=== PATIENT | male | born 1955 | race Caucasian/White ===

== ENCOUNTER 2019-10-01 03:28 | Inpatient (IN) | payer MEDICARE ==
[~2019-10-01] VITALS: Ht 185.4 cm; Wt 186.4 kg
[2019-10-01] MEDS ORDERED: POTASSIUM CHLO20 ME1 PO (05:49)
[2019-10-01] MEDS ORDERED: TORSEMIDE20 MG PO (05:50)
[2019-10-01] MEDS ORDERED: TRESIBA FL200 UNIT/1 (05:51)
[2019-10-01] MEDS ORDERED: NOVOLOG100 UNIT/2 (05:52)
[2019-10-01] MEDS ORDERED: FELODIPINE ER10 MG PO (05:53)
[2019-10-01] MEDS ORDERED: LOSARTAN POTASS25 MG PO (05:54)
[2019-10-01] MEDS ORDERED: JANUMET 50-1,01 EACH PO (05:54)
[2019-10-01] MEDS ORDERED: ASPIRIN325 MG PO (05:55)
--- NOTE | 2019-10-01 06:21 | NUR ---
REPORT RECEIVED FROM SN BERNARDO IN ED.
--- NOTE | 2019-10-01 07:04 | NUR ---
pt ARRIVES TO MS FLOOR VIA STRETCHER. HOVER MAT TO HOSPITAL BED WITH FIVE PERSON ASSIST. ORIENTATION TO ROOM PROVIDED. IVF INFUSING WNL ORDERED. CPOX IN PLACE. VSS. SPO2 WNL ON RA. CALL LIGHT IN REACH. pt VERBALIZES UNDERSTANDING TO USE CALL LIGHT BEFORE GETTING OUT OF BED.
--- NOTE | 2019-10-01 08:30 | NUR ---
PT IS ALERT, ORIENTED, SBA TO SIT UP ON EDGE OF BED TO VOID IN URINAL, NEEDS CONSTANT CUES BUT FOLLOWS INSTRUCTIONS WELL. L ARM/HAND WEAKNESS, ABLE TO GRASP WITH HAND, BEDSIDE SWALLOW SCREEN COMPLETED AND APPEARS TO HAVE ADEQUATE SWALLOW. DENIES ANY DISCOMFORT, DR HANKINS IN TO SEE PT.
--- NOTE | 2019-10-01 10:53 | NUR ---
PT STOOD TO TRANSFER TO LARGER CHAIR BORROWED FROM [facility].
--- NOTE | 2019-10-01 11:58 | NUR ---
WEAKNESS MUCH IMPROVED TO L ARM AND LEG, AMBULATED LOOP AROUND NURSES STATION WITH FWW AND PHYSICAL THERAPIST.
--- NOTE | 2019-10-01 13:00 | NUR ---
Spoke with Kai herrera suzanna. He states he lives in [place] and is independent. Has a friend, Souleymane, who lives on his property and assists him if needed. He states he is not his cg. Also has a friend Jada who assists him. He feels he does well at home, his concern is he is having more difficulty getting in and out of his clawfoot bath tube. Discussed need to remodel his bathroom and states he has been planning this. Denies DME, but does state he uses a cane. 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 States he is ok financially and does not use food pantry or [employer]. He states Dr. Leon spoke with him about possible [facility] admission for rehab if needed. He feels his deficits have improved greatly at this point. He will discuss further with Dr. Leon.
--- NOTE | 2019-10-01 13:59 | NUR ---
PT IS PLEASED WITH ROOM CHANGE TO 116, NEW RECLINER ALSO FOR COMFORT, PT IS ALERT, DENIES ANY NEEDS OR CONCERNS, NO GILL, USING ALL EXTREMITIES, MILD WEAKNESS IN L HAND/ARM. USING CALL LIGHT APPROP.
--- NOTE | 2019-10-01 16:10 | NUR ---
SBA INTO SHOWER, TOLERATED WELL, SBA USING FWW TO AMBULATE. NIH SCALE-1. MINIMAL WEAKNESS IN L HAND/ARM. IN GOOD SPIRITS, DENIES ANY CONCERNS OR NEEDS.
--- NOTE | 2019-10-01 18:08 | NUR ---
ATE 100% OF DINNER, ONE PERSON SBA INTO BATHROOM, VOIDING WELL, DENIES ANY PAIN, IN GOOD SPIRITS.
--- NOTE | 2019-10-01 19:15 | NUR ---
SHIFT REPORT RECEIVED FROM DAYSHIFT WILVER MACKAY AT BEDSIDE. PT AWAKE AND GETTING INTO BED WITH HELP FROM DAYSHIFT CALENDER LET OFF OPERATOR. PT IN GOOD SPIRITS AND DENIES NEEDS, CALL LIGHT IN REACH.
--- NOTE | 2019-10-01 22:03 | NUR ---
HELPED PT TO LAY DOWN IN HIS BED. MATTRESS INFLATED,SOCKS OFF AND TELE PUT ON. FRESH ICE WATER GIVEN. BEDSIDE TABLE AND CALL LIGHT IN REACH. PT NEEDS NOTHING MORE AT THIS TIME.
--- NOTE | 2019-10-01 22:59 | NUR ---
PATIENT RESTING IN BED, EYES CLOSED. AWAKES FOR GLUCOSE CHECK. PATIENT COMPLAINS OF BEING UNCOMFORTABLE ON BED, READJUSTED NEEDED. CALL LIGHT IN REACH. RN NOTIFIED OF BLOOD GLUCOSE. NO FUTHER NEEDS AT THIS TIME.
--- NOTE | 2019-10-01 23:00 | NUR ---
ASSESSMENT COMPLETE, SCHEDULED ACCUCHECK COMPLETE, RESULT 219. SCHEDULED LANTUS AND INSULIN SS ADMINISTERED (SEE EMAR). PT RESTING IN BED, ABLE TO FOLLOW COMMANDS. PUPILS ROUND AND REACTIVE TO LIGHT. A/OX4, VSS. NEURO ASSESSMENT COMPLETE (SEE INTERVENTION FOR DETAILS). PT COMPLAINT WITH CARE, DENIES FURTHER NEEDS. CALL LIGHT IN REACH.
--- NOTE | 2019-10-01 23:10 | EKG ---
[facility] [address] [place] [address] Signed Normal sinus rhythm Normal ECG No previous ECGs available Confirmed by KARLEY MCBRIDE MD ([id number]) on 10/01/2019 11:10:04 PM Electronically Signed By: KARLEY MCBRIDE MD 10/01/19 2310 PATIENT NAME: FANNIE COMBS Electrocardiogram DATE OF : 51 PHYSICIAN: KARLEY MCBRIDE MD REPORT #: [id number] REPORT IS CONFIDENTIAL AND NOT TO BE RELEASED WITHOUT AUTHORIZATION
--- NOTE | 2019-10-01 23:33 | NUR ---
PATIENT ASSISTED TO AMBULATE TO BEDSIDE RECLINER FOR COMFORT. PATIENT TOLERATED WELL. PATIENT BELONGINGS AND CALL LIGHT IN REACH, NO FURTHER NEEDS AT THIS TIME.
--- NOTE | 2019-10-02 00:30 | NUR ---
PT AWAKE AND RESTING IN CHAIR APPEARS COMFORTABLE. TELE#[address], SINUS RHYTHM. HR WNL. DENIES NEEDS, CALL LIGHT IN REACH.
--- NOTE | 2019-10-02 01:15 | NUR ---
PT CALLED, WAS UP IN RECLINER CHAIR, REQUESTED TO GO TO BED. SBA, WITH FWW PT TO BED, ABLE WITH MIMIMAL SUPPORT, GET LEGS INTO BED AND ADJUSTED HIS POSITION INDEPENDENTLY. CALL LIGHT WITHIN REACH.
--- NOTE | 2019-10-02 02:06 | NUR ---
PT RESTING QUIETLY IN BED WITH EYES CLOSED. NO DISTRESS OR PAIN NOTED, CALL LIGHT IN REACH.
--- NOTE | 2019-10-02 03:05 | NUR ---
VITALS AND I&OS DONE AND CHARTED. BEDSIDE TABLE AND CALL LIGHT IN REACH. PT NEEDS NOTHING AT THIS TIME.
--- NOTE | 2019-10-02 03:30 | NUR ---
ASSESSMENT COMPLETE, NO NEW CHANGES OR CONCERNS. PT A/OX4, PUPILS ROUND AND REACTIVE TO LIGHT. NIH STROKE SCALE SCORE OF 1, NO CHANGE FROM PREVIOUS ASSESSMENT. PT FOLLOWS COMANDS AND IS INTERACTIVE WITH STAFF. CLEAR SPEECH, SLIGHT LEFT DROOP REMAINS, BASELINE PER REPORT AND PT D/T HX BELLS PALSY. PT UP TO VOID 1PA WITH FWW, CURRENTLY IN BATHROOM. CALL LIGHT IN REACH AND INSTRUCTED TO CALL WHEN READY. PT VERBALIZED UNDERSTANDING.
--- NOTE | 2019-10-02 04:01 | NUR ---
HELPED PT FROM THE BATHROOM BACK INTO HIS CHAIR WITH HIS FWW. FRESH ICE WATER GIVEN PER PT REQUEST. BEDSIDE TABLE AND CALL LIGHT IN REACH. PT NEEDS NOTHING MORE AT THIS TIME.
--- NOTE | 2019-10-02 04:57 | NUR ---
PT HAD AN UNEVENTFUL NIGHT, SLEPT OFF AND ON. BIGGEST COMPLAINT WAS INTERMITTENT RESTLESS LEGS. VSS, TELE#[address] Q4H NEURO CHECKS, NIH STROKE SCALE OF 1 R/T FACIAL DROOP. 1PA WITH FWW, CALL APPROPERIATELY. ADA DIET, TOLERATING WELL, NO NAUSEA REPORTED. INSULIN SS AND SCHEDULED LANTUS.
--- NOTE | 2019-10-02 05:35 | NUR ---
PATIENT RESTING IN BEDSIDE RECLINER, EYES CLOSED, LIGHTS OFF. PATIENT AWAKES BRIEFLY FOR VITALS BUT CONTINUES TO REST. CALL LIGHT IN REACH. NO FURTHER NEEDS AT THIS TIME.
--- NOTE | 2019-10-02 06:30 | NUR ---
NIH STROKE SCALE COMPLETE, NO NEW CHANGES. SCORE UNCHANGED. CALL LIGHT IN REACH.
--- NOTE | 2019-10-02 06:44 | NUR ---
PT SBA WITH FWW BACK TO BED, MAX INFLATE IN PLACE. BREAKFAST ORDER CALLED TO KITCHEN. HX DIABETES, PT ON REGULAR DIET. DISCUSSED WITH SPINAL SURGEON, PT PLACED ON 60G CARB DIET. NO FURTHER NEEDS.
--- NOTE | 2019-10-02 08:04 | NUR ---
DID PATIENT'S BLOOD SUGAR CHECK. ALSO GOT HIM UP TO WEIGH HIM AND AFTER THAT HE WENT INTO THE BATHROOM WASHED HIS FACE AND BRUSH HIS TEETH. NOW HE IS SITTING UP IN HIS CHAIR EATING HIS BREAKFAST. CHANGED LINENS.
--- NOTE | 2019-10-02 08:30 | NUR ---
PT SBA INTO BATHROOM AND THAN TO RECLINER FOR BREAKFAST, DENIES ANY CONCERNS OR NEEDS, IN GOOD SPIRITS.
--- NOTE | 2019-10-02 10:00 | NUR ---
NIH SCORE-0, WALKING IN HALLWAY WITH PT, MOTIVATED AND IN GOOD SPIRITS.
--- NOTE | 2019-10-02 11:45 | NUR ---
Spoke with Kai. He states he has weakness in his left side. Thinking he will stay for rehab. He wants to discuss with Dr. Leon.
[2019-10-02] MEDS ORDERED: FISH OIL 1,0001 EAC2 PO (12:45)
[2019-10-02] MEDS ORDERED: VITAMIN B-121000 MC2 PO (12:45)
[2019-10-02] MEDS ORDERED: MAGNESIUM200 MG PO (12:45)
[2019-10-02] MEDS ORDERED: VITAMIN D375 MCG PO (12:46)
--- NOTE | 2019-10-02 12:51 | NUR ---
MED REC COMPLETED USING REFILL HISTORY AND PATIENT INTERVIEW.
--- NOTE | 2019-10-02 16:19 | NUR ---
PT IS SITTING UP IN RECLINER, WATCHING TV PROGRAM, DENIES ANY NEEDS, CALL LIGHT IN EASY REACH. LOOKING FORWARD TO DINNER.
--- NOTE | 2019-10-02 19:30 | NUR ---
SHIFT REPORT RECEIVED FROM DAYSHIFT WILVER MACKAY AT BEDSIDE. PT AWAKE AND RESTING IN BED, NO NEEDS VERBALIZED. COMPLIANT WITH CARE. CALL LIGHT IN REACH.
--- NOTE | 2019-10-02 19:33 | NUR ---
HELPED PT TO THE BATHROOM WITH HIS FWW. HE WILL PULL THE STRING WHEN HE IS DONE.
--- NOTE | 2019-10-02 19:57 | NUR ---
HELPED PT BACK TO BED FROM THE BATHROOM WITH HIS FWW. FRESH ICE WATER GIVEN AND SOME FLOSS PER HIS REQUEST. BEDSIDE TABLE AND CALL LIGHT IN REACH.
--- NOTE | 2019-10-02 21:30 | NUR ---
ASSESSMENT COMPLETE, VSS. PT AWAKE AND RESTING IN BED. SCHEDULED INSULIN SS AND SCHEDULED LANTUS ADMINISTERED (SEE EMAR). NIH STROKE SCALE ASSESSMENT UNREMARKABLE, SCORE OF 0. TELE#[address], HR WNL AND SINUS RHYTHM. PRN TYLENOL GIVEN FOR RESTLESS LEGS/GENERALIZED DISCOMFORT. NO FURTHER NEEDS, CALL LIGHT IN REACH.
--- NOTE | 2019-10-02 23:33 | NUR ---
HELPED PT GET TO THE CHAIR FROM THE BED WITH HIS FWW. HE SAID HE WAS VERY UNCOMFORTABLE. PER PT REQUEST I GAVE HIM A CUP OF COFFEE. BEDSIDE TABLE AND CALL LIGHT IN REACH.
--- NOTE | 2019-10-03 01:33 | NUR ---
PT RESTING QUIETLY IN BED WITH EYES CLOSED. REPIRATIONS EVEN AND UNLABORED. NO DISTRESS NOTED, CALL LIGHT IN REACH.
--- NOTE | 2019-10-03 03:30 | NUR ---
PT RESTING IN CHAIR, EYES CLOSED. RESPIRATIONS EVEN AND UNLABORED. NO DISTRESS NOTED, CALL LIGHT IN REACH.
--- NOTE | 2019-10-03 05:36 | NUR ---
ASSESSMENT COMPLETE, NO NEW CHANGES OR CONCERNS. PT AWAKE AND RESTING IN CHAIR. A/OX4, SPEECH CLEAR. LEFT FACIAL DROOP REMAINS NOTED, HX BELLS PALSY. PUPILS ROUND AND REACTIVE TO LIGHT. EQUAL STRENGTH IN BUE. TELE#[address], SINUS RHYTHM. PT DENIES FURTHER NEEDS, CALL LIGHT IN REACH. AUGUST IN ROOM TO COLLECT VS.
--- NOTE | 2019-10-03 05:42 | NUR ---
VITALS AND I&OS DONE AND CHARTED. WEIGHT DONE WELL. BEDSIDE TABLE AND CALL LIGHT IN REACH. GARBAGES EMPTIED. PT NEEDS NOTHING MORE AT THIS TIME.
--- NOTE | 2019-10-03 07:05 | NUR ---
RECEIVED REPORT FROM JESÚS PETTIT. PT AWAKE AND SITTING UP IN CHAIR AT THIS TIME. PT HAS CALL LIGHT WITHIN REACH AND NO COMPLAINTS
--- NOTE | 2019-10-03 08:30 | NUR ---
IN PTS ROOM GIVING MEDS. PT SITTING UP IN CHAIR WITH NO COMPLAINTS AT THIS TIME. CALL LIGHT WITHIN REACH
--- NOTE | 2019-10-03 09:45 | NUR ---
IN PTS ROOM, PT DONE WITH SHOWER AND BACK TO CHAIR. PT HAS NO CONCERNS OR NEEDS AT THIS TIME. CALL LIGHT WITHIN REACH
--- NOTE | 2019-10-03 12:00 | NUR ---
pt sitting in chair call light within reach, pt requests more water, provided pt with fresh water. pt denies any other concerns at this time
--- NOTE | 2019-10-03 13:15 | NUR ---
SPOKE WITH PATIENT IN ROOM. HE STATES HE STILL FEELS WEAK, BUT GETTING BETTER. HE DOES NOT LIKE SLEEPING IN HOSPITAL BED. STATES HE SLEEPS BETTER IN CHAIR. WE DISCUSSED PLAN FOR DISCHARGE. WE DISCUSSED THAT THERAPY FEELS HE COULD USE ANOTHER WEEK OR SO TO BE SAFER IN GOING HOME, ESPECIALLY SINCE HE LIVES ALONE. WE DISCUSSED OPTION OF SNF OR TRANSITIONAL CARE HERE. HE WOULD LIKE TO AVOID GOING ELSEWHERE AND WOULD LIKE TO STAY HERE IF POSSIBLE. DISCUSSED THAT WE MIGHT BE ABLE TO DO THIS, BUT THAT IF OUR HOSPITAL WERE TO BECOME FULL WITH THE PANDEMIC NEEDS WE WOULD HAVE TO DISCHARGE HIM HOME OR TO A SNF. HE UNDERSTANDS THIS. TOLD HIM DR MCBRIDE WILL DISCUSS THIS WITH HIM WHEN SHE DOES ROUNDS. WE DISCUSSED MEDICARE COVERAGE OF SNF BENEFITS. HE STATES UNDERSTANDING. WE DISCUSSED THAT THERAPY IS CONCERNED THAT HE DOES NOT HAVE A SHOWER AT HOME AND WHAT HIS PLAN ARE FOR THIS SINCE GETTING IN AND OUT OF A [place]W TUB WILL BE DANGEROUS AT THIS TIME. HE STATES HE WAS HAVING ISSUES WITH IT BEFORE, HE PLANS TO REMODEL SOMEDAY, BUT IT IS COSTLY. HE STATES HE CAN SHOWER AT A FAMILY OR FRIENDS HOME ON [address]. I EXPLAINED WE CANNOT KEEP HIM HERE AT DISCHARGE IN REGARDS TO THIS ISSUE IT IS ONGOING. HE UNDERSTANDS. QUESTIONS ANSWERED AT THIS TIME. CM WILL CONTINUE TO FOLLOW.
--- NOTE | 2019-10-03 14:54 | NUR ---
TRANSITIONAL CARE BROCHURE GIVEN.
--- NOTE | 2019-10-03 14:54 | NUR ---
IN PTS ROOM AT THIS TIME. PT LAYING IN BED, CALL LIGHT WITHIN REACH. PT STATES THAT HE "FEELS ELECTRCITY GOING THROUGH MY LEGS" ASKED PT IF HE WOULD LIKE SOME TYLENOL FOR HIS LEGS FEELING UNCOMFORTABLE, PT STATED THAT SOUNDED GOOD. PT HAS NO OTHER CONCERNS AT THIS TIME
--- NOTE | 2019-10-03 15:15 | NUR ---
IN PTS ROOM FOR CHECK IN. PT STATES HE IS DOING WELL BUT WOULD LIKE SOME LOTION PUT ON HIS FEET DUE TO THEM BEING DRY. PLACED LOTION ON BILATERAL LEGS AND FEET
--- NOTE | 2019-10-03 17:15 | NUR ---
IN PTS ROOM GIVING MEDS. PT PROVIDED DINNER AND STATES NO OTHER CONCERNS AT THIS TIME
--- NOTE | 2019-10-03 18:31 | NUR ---
PT SITTING IN CHAIR TALKING ON PHONE, PT GAVE THUMBS UP- THIS RN IS TAKING IT THAT THE PT IS DOING WELL AND DOESN'T NEED ANYTHING
--- NOTE | 2019-10-03 19:00 | NUR ---
BEDSIDE REPORT RECEIVED FROM OFFGOING RN. PT DENIES NEEDS AT THIS TIME. CALL LIGHT IN REACH.
--- NOTE | 2019-10-03 22:30 | NUR ---
PT ASSESSMENT COMPLETE. PT RESTING IN BED, WOULD LIKE TO GET UP TO USE THE BATHROOM AND REST IN THE CHAIR A WHILE. PT OOB WITH MINIMAL ASSISTANCE, WALKS TO BATHROOM AND BACK TO CHAIR INDEPENDENTLY. PT DENIES PAIN, NAUSEA, OR SOB. 2+PITTING EDEMA NOTED TO LLE, GENERALIZED EDEMA TO RLE. ELEVATED ON PILLOW. IV SITES X2 FLUSHED, WNL, SL. PT DENIES FURTHER NEEDS AT THIS TIME. CALL LIGHT IN REACH.
--- NOTE | 2019-10-04 00:20 | NUR ---
PT RESTING IN CHAIR WITH EYES CLOSED, SNORING AUDIBLY FROM DOORWAY. PT DOES NOT WAKE WHILE SEPTIC TECHNICIAN IN DOORWAY. CALL LIGHT IN REACH.
--- NOTE | 2019-10-04 02:30 | NUR ---
PT RESTING IN BED. SNORING AUDIBLY FROM DOORWAY, DOES NOT WAKE WHILE ROLLER OPERATOR AT DOORWAY. CALL LIGHT IN REACH.
--- NOTE | 2019-10-04 06:05 | NUR ---
PATIENT RESTING IN BED, CALL LIGHT IN REACH, EYES CLOSED. NO FURTHER NEEDS AT THIS TIME. RN NOTIFIED OF BLOOD PRESSURE.
--- NOTE | 2019-10-04 06:10 | NUR ---
PT ASSESSMENT COMPLETE. PT RESTING IN BED SNORING AUDIBLY. DOES NOT WAKE DURING ASSESSMENT. ASSESSMENT UNCHANGED FROM PREVIOUS. CALL LIGHT IN REACH.
--- NOTE | 2019-10-04 07:10 | NUR ---
RECEIVED REPORT FROM KAREN PTETIT. PT SITTING UP IN CHAIR AND HAS NO IMMEDIATE NEEDS AT THIS TIME
--- NOTE | 2019-10-04 08:30 | NUR ---
IN PTS ROOM PASSING MORNING MEDS. PT HAS NO NEEDS AT THIS TIME. CALL LIGHT WITHIN REACH AND IS SITTING IN BED
--- NOTE | 2019-10-04 11:30 | NUR ---
pt working with physical therapy at this time. pt in hallway ambulating well.
--- NOTE | 2019-10-04 11:58 | NUR ---
in pts room to do accu check. pt in chair and appears that he was about to fall asleep. pt states he is doing well and has no complaints at this time
--- NOTE | 2019-10-04 14:39 | NUR ---
IN PTS ROOM GIVING MEDS. PT SITTING IN CHAIR AND HAS NO COMPLAINTS AT THIS TIME.
== END 2019-10-04 15:07 | disposition swing bed (61) | DRG 65 ==
LOC: ED 03:28 → MS 03:30
PROVIDERS: ADMIT Internal Medicine
DX: I63.9 Cerebral infarction, unspecified (principal); G81.94 Hemiplegia, unspecified affecting left nondominant side; Z68.43 Body mass index [BMI] 50.0-59.9, adult; R29.810 Facial weakness; R13.10 Dysphagia, unspecified; E11.9 Type 2 diabetes mellitus without complications; I10 Essential (primary) hypertension; G47.30 Sleep apnea, unspecified; K59.00 Constipation, unspecified; E66.9 Obesity, unspecified; I89.0 Lymphedema, not elsewhere classified; M54.9 Dorsalgia, unspecified; G89.29 Other chronic pain; Z82.49 Family history of ischemic heart disease and other diseases of the circulatory system; Z87.891 Personal history of nicotine dependence; Z79.82 Long term (current) use of aspirin; Z79.4 Long term (current) use of insulin; Z79.899 Other long term (current) drug therapy
CPT/HCPCS: 36415; 70450; 70496; 70498; 71045; 80048; 80053; 80061; 84484; 85025; 85610; 85730; 92610; 93005; 93010; 93306; 97110; 97116; 97162; 97165; 97535; 99285-25; J1650; J1815; J3480; Q9967; U0002

== ENCOUNTER 2019-10-04 15:08 | Inpatient (IN) | payer MEDICARE ==
[~2019-10-04] VITALS: Ht 185.4 cm; Wt 183.2 kg
[~2019-10-04 15:08] MED LIST: ASPIRIN325 MG PO; FELODIPINE ER10 MG PO; FISH OIL 1,0001 EAC2 PO; JANUMET 50-1,01 EACH PO; LOSARTAN POTASS25 MG PO; MAGNESIUM200 MG PO; NOVOLOG100 UNIT/2; POTASSIUM CHLO20 ME1 PO; TORSEMIDE20 MG PO; TRESIBA FL200 UNIT/1; VITAMIN B-121000 MC2 PO; VITAMIN D375 MCG PO
[2019-10-06] MEDS ORDERED: APPLE CIDER VI1 EAC1 PO (12:22)
[2019-10-07] MEDS ORDERED: CLOPIDOGREL75 MG PO (12:29)
[2019-10-07] MEDS ORDERED: ROPINIROLE HCL0.5 MG PO (12:31)
[2019-10-07] MEDS ORDERED: ZETIA10 MG PO (12:31)
== END 2019-10-08 10:25 | disposition home health service (06) | DRG 57 ==
LOC: MS 15:08
PROVIDERS: ADMIT Internal Medicine
DX: I69.354 Hemiplegia and hemiparesis following cerebral infarction affecting left non-dominant side (principal); G51.0 Bell's palsy; E11.9 Type 2 diabetes mellitus without complications; I10 Essential (primary) hypertension; G25.81 Restless legs syndrome; I25.10 Atherosclerotic heart disease of native coronary artery without angina pectoris; E78.5 Hyperlipidemia, unspecified; I69.391 Dysphagia following cerebral infarction; R13.10 Dysphagia, unspecified; Z79.4 Long term (current) use of insulin; Z79.899 Other long term (current) drug therapy
CPT/HCPCS: 97110; 97116; 97140; 97162; 97165; J1650; J1815

== ENCOUNTER 2023-07-04 21:23 | Inpatient (IN) | payer OTHER, MEDICARE ==
[~2023-07-04] VITALS: Ht 185.4 cm; Wt 221.5 kg
[~2023-07-04 21:23] MED LIST changes: +APPLE CIDER VI1 EAC1 PO; +CLOPIDOGREL75 MG PO; -NOVOLOG100 UNIT/2; +NOVOLOG100 UNIT/2 SUB-Q; +ROPINIROLE HCL0.5 MG PO; -TRESIBA FL200 UNIT/1; +TRESIBA FL200 UNIT/1 SUB-Q; +ZETIA10 MG PO
[2023-07-04 21:47] LABS: BASOPHILS 0.5 % (0-2); EOSINOPHILS 0.9 % (0-6); HEMATOCRIT 45.4 % (35.0-50.0); LYMPHOCYTES 11.5 % (24-44); MCH 26.9 (27-36); MCHC 33.1 g/dl (30-36); MCV 81.3 fl (81-99); NEUTROPHILS 81.1 % (39-80); PLATELET COUNT 266 K/uL (140-440); RBC 5.58 M/ul (4.3-5.7); RDW 17.5 (10.5-15.0)
[2023-07-04 22:01] LABS: ALBUMIN/GLOBULIN RATIO 0.67 (1.1-2.4); ANION GAP 11.6 (7-21); BILIRUBIN, TOTAL 0.4 ng/dL (0.2-1.0); BUN/CREATININE RATIO 12.24 (6.0-28.6); CALCIUM 8.9 mg/dL (8.5-10.1); CREATININE, SERUM 0.98 mg/dL (0.70-1.30); MAGNESIUM 1.8 mg/dL (1.8-2.4); POTASSIUM 3.6 mmol/L (3.5-5.1); PROTEIN, TOTAL 7.5 g/dL (6.4-8.2)
[2023-07-04 22:23] LABS: BILIRUBIN, URINE NEGATIVE (negative); BLOOD/HGB, URINE NEGATIVE (Negative); KETONE, URINE NEGATIVE (Negative); LEUK ESTERASE, URINE NEGATIVE (negative); NITRITE, URINE NEGATIVE (negative)
[2023-07-04] MEDS ORDERED: MORPHINE SULFATE 4 MG/ML VIAL IV ONE (23:15)
[2023-07-05] MEDS ORDERED: HYDROmorphone HCL 1 MG/ML SYR IV PRN ×2 (02:30→09:15)
[2023-07-05] MEDS ORDERED: OXYCODONE/APAP 5/325 TAB PO PRN (06:30)
[2023-07-05] MEDS ORDERED: ENOXAPARIN SODIUM 40 MG/0.4 ML SYR SUB-Q SCH (09:10)
[2023-07-05] MEDS ORDERED: HYDROCODONE/APAP 10/325 1 TAB PO PRN (09:15)
[2023-07-05] MEDS ORDERED: ACETAMINOPHEN 325 MG TAB PO PRN (09:15)
[2023-07-05] MEDS ORDERED: bisacodyL 10 MG SUPP PR PRN (09:15)
[2023-07-05] MEDS ORDERED: MAGNESIUM HYDROXIDE 30 ML UDC PO PRN (09:15)
[2023-07-05 09:59] VITALS: BP 155/82
--- NOTE | 2023-07-05 09:59 | NUR ---
PT ARRIVES TO ROOM ACCOMPANIED BY WILVER THAKUR. BEDSIDE REPORT RECEIVED. PT TRANSFERRED TO BARIATRIC BED. VITALS COMPLETE. IV FLUSHES WNL. IV SL AT THIS TIME. WATER AND ICE CHIPS PROVIDED. PT DENIES ANY OTHER NEEDS AT THIS TIME. CALL LIGHT IN REACH.
--- NOTE | 2023-07-05 10:59 | NUR ---
IN WITH SN KASSIE PT REPORTING PAIN 8/10. PHYSICAL THERAPY AND OT IN ROOM WORKING WITH PT. PRN PAIN MEDICATION ADMINISTERED, SEE MAR. MICHELLE RN IN TO ASSIST WITH TURNING PT. PTs CLOTHING REMOVED, PANTS NOTED TO BE WET AND CHUCKS PAD NOTED TO HAVE VOID ON IT. JUAN LUIS-CARE PROVIDED, ATTENDS PLACED, NEW CHUCKS PAD PLACED. GOWN PLACED. WILVER MARTINEZ ASSISTS WITH 2 RN ASKIN ASSESSMENT. BRUISE NOTED TO RIGHT BARTHOLOMEW. SCAB NOTED TO RIGHT WRIST. BLISTER NOTED TO BUTTOCKS/GLUTEAL CLEFT. RIGHT GREAT TOE NOTED TO HAVE BANDAGE AND PT STATES "HAD A TOE NAIL REMOVED." RIGHT BARTHOLOMEW NOTED TO HAVE BANDAID AND PT STATES "THE CABIN EQUIPMENT SUPERVISOR PLACED THAT BECAUSE WITH MY LYMPHEDEMA SOMETIMES MY SKIN WEEPS." 1135 ASSESSMENT COMPLETE. LUNG SOUNDS CLEAR. BOWEL TONES ACTIVE. PT REPORTING PAIN 2/10 TO RIGHT KNEE AND RIGHT RING FINGER. R RING FINGER NOTED TO BE EDEMATOUS AND RED. HEART TONES DISTANT. PT REPORTS CHRONIC NUMBNESS IN HANDS AND FEET BILATERALLY. EDEMA NOTED TO BILATER LOWER EXTREMITIES, PT REPORTS LYMPHEDEMA. PT REPORTS USING WALKER AT HOME. PT REPORTS LIVING ALONE. PT SITTING UP IN BED. PT DENIES ANY OTHER NEEDS AT THIS TIME. CALL LIGHT IN REACH.
--- NOTE | 2023-07-05 11:15 | NUR ---
Spoke with Al in the ER and again on the medical floor. Pt states he lives alone 11 miles out of [place]. He lives in a 1 story home without steps. There are steps in the driveway to his car. He uses a rolator walker in his home at all time. He states he mostly sits in his recliner. His sister lives within 1/2 mile. She and her spouse help him. He does state sister has some memory issues and her spouse has Parkinsons. He does not feel he has anyone to help him at home. He denies financial issues. He was given IV pain meds in the ER and they attempted to change to po. Pt did not tolerate as he was very painful. Pt is agreeable to placement to a SNF, he does not care which one he uses. I gave him a list of SNFs in our area and the Compare post accute provider rating card to scan with his phone for medicare ratings. Pt will require a 3 night IP stay and PT. I will contact SNFS in our area to check for a bed opening on Sunday.
--- NOTE | 2023-07-05 12:47 | NUR ---
MED REC COMPLETE
--- NOTE | 2023-07-05 12:50 | NUR ---
ADMIN NORCO 10/325MG PO FOR REPROTS OF 6/10 RIGHT LEG PAIN.
--- NOTE | 2023-07-05 13:00 | NUR ---
THIS RN TALKED TO DR. BARAHONA REGARDING BG CHECKS AND SS INSULIN FOR PT. ALSO UPDATED DR. BARAHONA THAT PHARMACY COMPLETED PTs MEDICATION RECONCILIATION. MD AWARE. NO NEW ORDERS AT THIS TIME.
[2023-07-05 13:07] VITALS: BP 157/83
--- NOTE | 2023-07-05 14:56 | NUR ---
Checked with Paramjit, Maz[facility] Rose, and [facility] Cheyenne Mora. [facility] will not have a bed open Sunday. I received a text from Araceli at [facility] they may have a bed and [facility] does have beds open. Chart face sheet, ER notes, progress note, H&P, labs, imaging, med list, PT/OT eval faxed to Araceli at [facility] and Sandrine at [facility].
--- NOTE | 2023-07-05 15:00 | NUR ---
UR NOTE 07/05/23 MUSCULOSKELETAL DISEASE MET CLINICAL INDICATIONS FOR ADMISSION TO INPATIENT CARE
--- NOTE | 2023-07-05 15:18 | NUR ---
IN PATIENT C/O PAIN IN LEG, FINGER, AND WRIST RATING IT 6/10. PAIN MEDICATION ADMINSTERED PER JUL. PT SUPINE IN BED WATCHING TV, CALL LIGHT IN REACH, NO OTHER NEEDS IDENTIFIED AT THIS TIME.
--- NOTE | 2023-07-05 16:23 | NUR ---
PT BLOOD SUGAR AT 16:24 IS 283
[2023-07-05] MEDS ORDERED: FRUIT & VEGETA1 EACH PO (17:40)
[2023-07-05 18:10] VITALS: BP 147/76
--- NOTE | 2023-07-05 18:14 | NUR ---
IN TO ROUND ON PT. LULU, FITNESS AND WELLNESS MANAGER IN ROOM. PT RESPONDS WHEN ADDRESSED. PT REPORTING PAIN /. PT DENIES ANY OTHER NEEDS AT THIS TIME. CALL LIGHT IN REACH. LULU, FITNESS AND WELLNESS MANAGER STILL IN ROOM.
[2023-07-05 20:43] VITALS: BP 157/73
--- NOTE | 2023-07-05 20:45 | NUR ---
IN TO GET VS, PT STATES NO NEEDS FOR TOILTING, POSITIONING COMFORTABLE, ICE CHIPS AND WATER AT BEDSIDE
[2023-07-05] MEDS ORDERED: MELATONIN 3 MG TAB PO PRN (21:00)
--- NOTE | 2023-07-05 21:00 | NUR ---
SPOKE TO MD REGARDING PT NEEDING INSULIN ORDERS AND IF HE WANTED TO ORDER HOME MEDICATIONS MD RELUCTANTLY GAVE ME ORDERS FOR INSULIN AND AGREED TO ORDER SOME OF PT'S HOME MEDS. TELEPHONE ORDER MEDS ORDERED- SEE VIDHYA
[2023-07-05] MEDS ORDERED: INSULIN LISPRO 100 UNIT/ML ML SUB-Q SCH (22:15)
[2023-07-05] MEDS ORDERED: INSULIN GLARGINE-YFGN 100 UNIT/ML ML SUB-Q SCH (22:15)
[2023-07-05] MEDS ORDERED: IBLOOD GLUCOSE TEST STRIP 1 EA TEST VI SCH (22:30)
--- NOTE | 2023-07-05 23:50 | NUR ---
OFF BIPAP PER NURSING FOR BM. NATE WELL WOB OK.
[2023-07-06] VITALS (7 sets, daily range): BP systolic 139–150; BP diastolic 66–86
--- NOTE | 2023-07-06 | NUR ---
call light on, in to see pt, pt requesting to take bipap off, provided, pt felt like a bm/pass gas coming, 3pa turn, attempted bed menchaca, unable to roll enough to get menchaca under, pt is on chux and attends, 4pa boost in bed with pt able to assist assist RN with pts leg brace, pt c/o of poking under his calf
--- NOTE | 2023-07-06 04:50 | NUR ---
PT OFF BIPAP PER REFUSAL AT THIS TIME. CPOX ON WITH ALARMS IN PLACE.
--- NOTE | 2023-07-06 07:00 | NUR ---
RECEIVED REPORT FROM WILVER PACHECO. PT IN BED SUPINE, RR EVEN AND UNLABORED. BIPAP ON, CPOX NOTED AT 96%. CALL LIGHT IN REACH, NO NEEDS NOTED AT THIS TIME.
--- NOTE | 2023-07-06 07:05 | NUR ---
REPORT RECEIVED FROM WILVER PACHECO. PT RESTING IN BED SEMI-FOWLERS. EYES CLOSED. RR EVEN AND UNLABORED. BIPAP IN PLACE. O2 SATS AT 96%. NO NEEDS IDENTIFIED AT THIS TIME. CALL LIGHT IN REACH.
[2023-07-06] MEDS ORDERED: DEXTROSE 50% 50 ML SYR IV PRN ×2 (07:45)
[2023-07-06] MEDS ORDERED: IBLOOD GLUCOSE TEST STRIP 1 EA TEST XX PRN (07:45)
[2023-07-06] MEDS ORDERED: DEXTROSE 5% 1,000 ML IV PRN (07:45)
[2023-07-06] MEDS ORDERED: GLUCAGON,HUMAN RECOMBINANT 1 MG/ML VIAL SUB-Q PRN (07:45)
--- NOTE | 2023-07-06 08:03 | NUR ---
INSULIN ORDERED WAS NOVOLOG AND LANTUS-SEE JUL FOR ORDER AND HYPOGLYCEMIA PROTOCOL
--- NOTE | 2023-07-06 08:34 | NUR ---
IN TO AMDINISTER MEDICATIONS, SEE MAR. PT TAKES PO MEDICATIONS WITH NO ISSUES. PT SITTING UP IN BED AND RESPONDS WHEN ADDRESSED. ASSESSMENT COMPLETE. LUNG SOUNDS CLEAR. BOWEL TONES ACTIVE. PT REPORTING PAIN 2/10 IN RLE AND DENIES PRN PAIN MEDICATION WHEN OFFERED. BRACE IN PLACE ON RLE. PEDAL PULSES PALPABLE AND EQUAL. IV FLUSHES WNL AND SL AT THIS TIME. WATER PROVIDED. PT DONE WITH BREAKFAST TRAY. TRAY REMOVED. PT REPORTING TOILETING NEEDS. SN KASSIE AND KARIME GALVAN IN TO ASSIST WITH GETTING PT ON BED CARLISLE. PT INFORMED TO CALL WHEN FINISHED. PT VERBALIZES UNDERSTANING. CALL LIGHT IN PTs HAND. PT DENIES ANY OTHER NEEDS.
[2023-07-06] MEDS ORDERED: CLOPIDOGREL BISULFATE 75 MG TAB PO SCH (09:00)
[2023-07-06] MEDS ORDERED: POTASSIUM CHLORIDE 10 MEQ TABCR PO SCH (09:00)
[2023-07-06] MEDS ORDERED: TORSEMIDE 20 MG TAB PO SCH (09:00)
--- NOTE | 2023-07-06 09:21 | NUR ---
SPOKE TO PATIENT ABOUT THE DISCHARGE PLAN. PATIENT IS OK TO GO TO [facility] OR [facility] FOR SNF PLACEMENT. MEDICAL RECORDS WHERE FAXED YESTERDAY AND UPDATED NOTED NOTES WILL BE SENT TODAY. PATIENT NEEDS A 3 DAY STAY WHICH MEANS THE PATIENT WILL BE HERE OVER THE WEEKEND.
--- NOTE | 2023-07-06 10:27 | NUR ---
IN PT REQUESTING PRN PAIN MEDICATION. PT REPORTING PAIN 01/04. PRN PAIN MEDICATIN ADMINISTERED, SEE MAR. PT REQUESTING USING URINAL. URINAL PROVIDED. VOID NOTED. PT REQUESTING TO USE BEDPAN. SN KASSIE AND KARIME GALVAN IN TO ASSIST WITH GETTING PT ON BEDPAN. PT ENCOURAGED TO CALL TO BE TAKEN OFF WHEN FINISHED. PT VERBALIZES UNDERSTANDING. CALL LIGHT IN PTs HAND. PT DENIES ANY OTHER NEEDS AT THIS TIME.
--- NOTE | 2023-07-06 11:51 | NUR ---
IN TO ROUND ON PT. PT REPORTS BEING DONE WITH BEDPAN. WILVER ZHENG AND SN KASSIE TO ASSIST WITH REMOVING BEDPAN. SMEAR BM NOTED. JUAN LUIS-CARE PROVIDED. NEW ATTEND PLACED AND BARRIER CREAM APPLIED TO GLUTEAL CLEFT. BLISTER NOTED TO GLUTEAL CLEFT. PT REPORTING PAIN 3/10 AND STATES "PAIN IS TOLERABLE RIGHT NOW." PT DENIES ANY OTHER NEEDS AT THIS TIME. CALL LIGHT IN REACH.
--- NOTE | 2023-07-06 12:10 | NUR ---
IN TO ASSIST PHYSICAL THERAPY AND OT. PT SITTING UP IN BED WITH RLE ELEVATED ON RECLINER. NO OTHER NEEDS FROM THIS RN. PHYSICAL THERAPY AND OT STILL IN ROOM. CALL LIGHT IN REACH.
--- NOTE | 2023-07-06 12:21 | NUR ---
UR NOTE 07/06/23 CONTINUES TO RECEIVE INPATIENT CARE
--- NOTE | 2023-07-06 12:30 | NUR ---
IN TO ASSIST PHYSICAL THERAPY AND OT. PT REPOSITIONED IN BED. PHYSICAL THERAPY AND OT STILL IN ROOM. NO OTHER NEEDS FROM THIS RN. CALL LIGHT IN REACH.
--- NOTE | 2023-07-06 13:45 | NUR ---
IN TO ROUND ON PT. PT REPORTING PAIN 7/10 TO RLE. PRN PAIN MEDICTION ADMINISTERED, SEE MAR. IV SITE NOTED TO BE RED AND INFLAMMED. IV REMOVED, NEW IV STARTED, SEE VASCULAR ACCESS. ASSESSMENT COMPLETE. PEDAL PULSES PALPABLE AND EQUAL. BRACE TO RIGHT KNEE IN PLACE. LUNG SOUNDS CLEAR. PT REPORTING NEED TO USE URINAL. URINAL PROVIDED. VOID NOTED. PT SITTING UP IN BED. PT DENIES ANY OTHER NEEDS AT THIS TIME. CALL LIGHT IN REACH.
--- NOTE | 2023-07-06 16:14 | NUR ---
IN PT REQUESTING PRN PAIN MEDICATION. PT REPORTING PAIN 5/10 IN RLE. PRN PAIN MEDICATION ADMINISTERED, SEE MAR. PT TAKES PO MEDICATION WITH NO ISSUES. KARIME LAWSON IN TO OBTAIN BG. 1630 SS INSULIN ADMINISTERED PER ORDERS. BLE ELEVATED ON PILLOWS. PT DENIES ANY OTHER NEEDS AT THIS TIME. CALL LIGHT IN REACH.
--- NOTE | 2023-07-06 18:07 | NUR ---
IN TO ANSWER CALL LIGHT. PT REPORTING TOILETING NEEDS. KASSIE, SN IN TO ASSIST WITH PLACING BEDPAN UNDER PT. URINAL PLACED PT REPORTING NEED TO VOID. PT DENIES ANY OTHER NEEDS AT THIS TIME. CALL LIGHT IN REACH.
--- NOTE | 2023-07-06 18:23 | NUR ---
IN TO ANSWER CALL LIGHT. PT REPORTS BEING DONE WITH URINAL AND BEDPAN. SN KASSIE IN TO ASSIST. BED CRALISLE REMOVED AND URINAL REMOVED. NO BM NOTED. SMALL VOID NOTED. PT REPORTING PAIN 6/10 IN RLE. PRN PAIN MEDICATION ADMINISTERED, SEE MAR. PT DENIES ANY OTHER NEEDS AT THIS TIME. CALL LIGHT IN REACH.
--- NOTE | 2023-07-06 20:11 | NUR ---
PT UTILIZES CALL LIGHT, REQUESTS PRN PAIN MEDICATION. PT RATES PAIN 7/10 TO R LEG. PRN ADMINISTERED, SEE EMAR. PT DENIES FURTHER NEEDS AT THIS TIME. CALL LIGHT IN REACH.
--- NOTE | 2023-07-06 20:50 | NUR ---
IN TO GET ACCU-CHECK FOR RN, VALUE REPORTED AT THIS TIME
[2023-07-07] VITALS (10 sets, daily range): BP systolic 145–167; BP diastolic 64–76
--- NOTE | 2023-07-07 02:55 | NUR ---
PT UTILIZES CALL LIGHT, REQUESTS ASSISTANCE WITH THE URINAL, PROVIDED. PT REQUESTS PRN PAIN MEDICATION FOR 7/10 PAIN TO R LEG, R BIG TOE, AND R SIDED BACK. PRN ADMINISTERED, SEE EMAR. PT DENIES FURTHER NEEDS AT THIS TIME. CALL LIGHT IN REACH.
--- NOTE | 2023-07-07 06:48 | NUR ---
PATIENT REPORTING 8/10 PAIN IN RLE. PRN PAIN MEDICAITON ADMINISTERED, SEE MAR. NO FURTHER NEEDS. CALL LIGHT IN REACH.
--- NOTE | 2023-07-07 07:30 | NUR ---
REPORT RECEIVED FROM CONCERT OR LECTURE HALL MANAGER RN TARA. PATIENT IS LYING IN BED AND AWAKE UPON ENTERING THE ROOM. PATIENT IS WATCHING TV AT THIS TIME. PATIENT WHITE BOARD IN THE ROOM IS UP TO DATE. PATIENT STATED NO FURTHER NEEDS AT THIS TIME. CALL LIGHT AND PERSONAL BELONGINGS ARE WITHIN REACH.
--- NOTE | 2023-07-07 10:20 | NUR ---
PATIENT MORNING MEDICATIONS ADMINISTERED PER THE EMAR. FULL ASSESSMENT COMPLETE AND DOCUMENTED IN THE CHART. PATIENT LUNG SOUNDS ARE CLEAR IN ALL LUNG BOLAÑOS BILATERALLY. PATIENT IS ON ROOM AIR AND THE CPOX IS AT THE BEDSIDE. IV SITE FLUSHED WELL WITH 10 ML NORMAL SALINE AND IS NOW SALINE LOCKED. IV DRESSING IS CLEAN, DRY, AND INTACT. PATIENT WITH PAIN RATED 6/10. PRN ORAL PAIN MEDICATION ADMINISTERED PER THE EMAR. PATIENT CARDIAC ASSESSMENT WITH NORMAL S1 AND S2. RADIAL PULSES ARE STRONG BILATERALLY. BOWEL TONES ARE ACTIVE IN ALL FOUR QUADRANTS. PATIENT SKIN ASSESSMENT COMPLETE. SKIN WITH WRINKLES DUE TO LYPHEDEMA. BRACE IN PLACE ON THE RIGHT LOWER EXTREMITY. PATIENT STATED NO FURTHER NEEDS AT THIS TIME. CALL LIGHT AND PERSONAL BELONGINGS ARE WITHIN REACH.
--- NOTE | 2023-07-07 11:12 | NUR ---
PATIENT BRACE TIGHTENED. PATIENT WORKING WITH PT AT THIS TIME. PATIENT STATED NO FURTHER NEEDS AT THIS TIME. CALL LIGHT AND PERSONAL BELONGINGS ARE WITHIN REACH.
--- NOTE | 2023-07-07 12:53 | NUR ---
PATIENT IS LYING IN BED AND LISTENING TO MUSIC ON THE TV. PATIENT 1200 INSULIN DOSE ADMINISTERED PER THE EMAR. PATIENT STATED NO FURTHER NEEDS AT THIS TIME. CALL LIGHT AND PERSONAL BELONGINGS ARE WITHIN REACH.
--- NOTE | 2023-07-07 15:40 | NUR ---
PATIENT IS LYING IN BED WITH EYES OPEN AND RESPIRATIONS ARE EVEN AND UNLABORED. PATIENT LUNG SOUNDS ARE CLEAR IN THE UPPER LOBES AND DIMINISHED IN THE BASES BILATERALLY. PATIENT WITH A BIPAP AT THE BEDSIDE. PATIENT IS ON ROOM AIR. PATIENT RIGHT LOWER EXTREMITY WITH A BRACE IS PLACE. PATIENT RATED PAIN OF 2/10 IN THE RIGHT LOWER EXTREMITY. PATIENT RESTING AND RELAXING. PATIENT STATED THEY WILL HAVE A VISITOR SOON BUT WOULD LIKE A BED BATH AT SOME POINT. PATINET STATED NO FURTHER NEEDS AT THIS TIME. CALL LIGHT AND PERSONAL BELONGINGS ARE WITHIN REACH.
--- NOTE | 2023-07-07 17:40 | NUR ---
LULU AND I WENT IN TO THE PATIENT ROOM AND DID A BED BATH AND COMPLETE LINEN CHANGE. CHUCKS ARE PLACED ON TOP OF THE LINENS. BILATERAL LOWER EXTREMITIES ARE ELEVATED ON ONE PILLOW. PATIENT TOLERATED THE SITUATION WELL. NEW FINGER PROBE FOR THE CPOX IS IN PLACE. PATIENT GIVEN PRN ORAL PAIN MEDICATION. PATIENT STATED NO FURTHER NEEDS AT THIS TIME. CALL LIGHT AND PERSONAL BELONGINGS ARE WITHIN REACH.
--- NOTE | 2023-07-07 19:37 | NUR ---
RECEIVED REPORT FROM DAY SHIFT RN. PATIENT IS RESTING IN BED WITH EYES CLOSED, CPOX READINGS ARE WNL. CALL LIGHT IN REACH.
--- NOTE | 2023-07-07 21:16 | NUR ---
PATIENTS VITALS TAKEN AND RECORDED. PATIENT ASSISTED TO USE THE URINAL. PATIENT ABLE TO VOID. PATIENTS INTAKE AND OUTPUT RECORDED. PATIENT RATES PAIN AT A 7/10, PRN PAIN MEDICATION GIVEN PER ORDER. PATIENTS OM MEDS GIVEN PER ORDER. PATIENT REPOSITIONED IN BED. PATIENT ASSESMENT COMPLETED. PATIENT HAS A BRACE ON RIGHT LOW WEXT. PATIENTS CAP REFILL AND PEDAL PULSES BILAT ARE WNL. PATIENTS IV FLUSHED AND SL PER ORDER. PATIENT DENIES ANY FURTHER NEEDS. ICE WATER PROVIDED TO PATIENT. CALL LIGHT IN REACH. RLE ELEVATED ON PILLOW.
--- NOTE | 2023-07-07 22:29 | NUR ---
PATIENT IS RESTING IN BED WITH EYES CLSOED, CPOX READINGS ARE WNL. PATIENT IS WEARING BIPAP. CALL LIGHT IN REACH.
--- NOTE | 2023-07-07 23:31 | NUR ---
PATIENT REPORTS 7/10 PAIN IN HIS RLE, PRN PAIN MEDICATION GIVEN PER ORDER. PATIENT PLACED BACK ON BIPAP PER REQUEST. PATIENT OPAL ANY FURTHER NEEDS AND DENIES THE NEED TO VOID. CALL LIGHT IN REACH.
[2023-07-08] VITALS (10 sets, daily range): BP systolic 142–164; BP diastolic 69–77
--- NOTE | 2023-07-08 00:12 | NUR ---
PATIENT IS RESTING IN BED WITH EYES CLOSED, CPOX READINGS ARE WNL. CALL LIGHT IN REACH.
--- NOTE | 2023-07-08 02:12 | NUR ---
PATIENT IS RESTING IN BED WITH EYES CLSOED, CPOX READINGS ARE WNL. PATIENTS CALL LIGHT IN REACH.
--- NOTE | 2023-07-08 04:15 | NUR ---
PATIENT REMOVED FROM BIPAP PER REQUEST. PATIENT RATES PAIN AT A 6/10, PRN PAIN MEDICATION GVEN PER ORDER. PATIENT REPOSITIONED IN BED. PATIENT PROVIDED FRESH ICE WATER. PATIENT DENIES ANY FURTHER NEEDS. CALL LIGHT IN REACH.
--- NOTE | 2023-07-08 05:25 | NUR ---
PT UTILIZES CALL LIGHT, REQUESTS PRN PAIN MEDICATION. RATES PAIN 7/10 TO RLE AND BACK. PRN ADMINISTERED. SEE EMAR. VS OBTAINED. ICE PROVIDED PER PT REQUEST. PT DENIES FURTHER NEEDS AT THIS TIME.CALL LIGHT IN REACH.
--- NOTE | 2023-07-08 05:42 | NUR ---
JUAN LUIS CARE COMPLETED. PATIENTS BEDDING CHANGED. PATIENT REPOSITIONED IN BED. PATIENTS BRACE ON RLE ADJUSTED. PATIENT DENIES ANY FURTHER NEEDS. CALL LIGHT IN REACH.
--- NOTE | 2023-07-08 06:34 | NUR ---
PATIENT IS RESTING IN BED. PATIENT REPORTS 7/10 PAIN IN RLE, PRN PAIN MEDICATION GIVEN PER ORDER. PATIENT DENIES ANY FURTHER NEEDS. CALL LIGHT IN REACH.
--- NOTE | 2023-07-08 07:15 | NUR ---
REPORT RECIEVED FROM INSIDE SALES ACCOUNT MANAGER WILVER LYONS. PATIENT IS RESTING WITH EYES CLOSED AND RESPIRATIONS ARE EVEN AND UN;ABORED. PATIENT WAS SNORING AND SPO2 WAS DROPPING SO WILVER RUFF PUT 2 L NC ON. PATIENT WITH CALL LIGHT AND PERSONAL BELONGINGS WITHIN REACH.
--- NOTE | 2023-07-08 07:39 | NUR ---
NOTIFIED OF THE RIGHT LOWER EXTREMITY BRACE. APPROVAL TO TAKE OFF BRACE WHILE IN BED TO HELP PREVENT SKIN BREAKDOWN BY . NO NEW ORDERS AT THIS TIME.
--- NOTE | 2023-07-08 08:08 | NUR ---
PILLOW CASE PLACED BETWEEN RIGHT LEG BRACE AND THE BACK OF PATIENTS THIGH. PATIENT SITTING UP IN BED TO EAT BREAKFAST. ASSISTED PATIENT WITH URINAL.
--- NOTE | 2023-07-08 09:13 | NUR ---
RIGHT LEG BRACE REMOVED PER PATIENT REQUEST AND APPROVAL FROM . PATIENT TOLERATED WELL. PATIENT STATED NO FURTHER NEEDS AT THIS TIME. CALL LIGHT AND PERSONAL BELONGINGS ARE WITHIN REACH.
--- NOTE | 2023-07-08 10:05 | NUR ---
PATIENT MORNING MEDICATIONS ADMINISTERED PER THE EMAR. PATIENT PRN PAIN MEDICATION ADMINISTERED FOR PAIN RATED 4/10 IN THE RIGHT LOWER EXTREMITY. PATIENT GIVEN FRESH CUP OF ICE WATER. PATIENT STATED NO FURTHER NEEDS AT THIS TIME. CALL LIGHT AND PERSONAL BELONGINGS ARE WITHIN REACH.
--- NOTE | 2023-07-08 10:40 | NUR ---
PATIENT FULL ASSESSMENT COMPLETE AND DOCUMENTED IN THE CHART. PATIENT IS LYING IN BED WITH THE HOB ELEVATED. PATIENT LUNG SOUNDS ARE CLEAR IN THE UPPER LOBES AND DIMINISHED IN THE LOWER LOBES BILATERALLY. PATIENT ON ROOM AIR. PATIENT WITH BIPAP AT THE BEDSIDE AND USED AT NIGHT. CPOX IS AT THE BEDSIDE. CARDIAC WITH NORMAL S1 AMD S2. PATIENT RADIAL PULSES ARE STRONG. CAPILLARY REFILL IS LESS THAN 3 SECONDS IN THE UPPER AND LOWER EXTREMITIES. PATIENT KNEE BRACE IS OFF AT THIS TIME. IV IN THE RIGHT FOREARM FLUSHED WELL WITH 10 ML NORMAL SALINE AND IS SALINE LOCKED. IV DRESSING IS CLEAN, DRY, AND INTACT. BOWEL TONES ARE ACTIVE IN ALL FOUR QUADRANTS. PATIENT STATED PAIN IS 2/10. PATIENT WITH NUMBNESS AND TINGLING IN BILATERAL LOWER EXTREMITIES. SENSATION INTACT. PATIENT NOTIFIED OF WORKING WITH PT IN A LITTLE BIT. PATIENT STATED NO FURTHER NEEDS AT THIS TIME. CALL LIGHT AND PERSONAL BELONGINGS ARE WITHIN REACH.
--- NOTE | 2023-07-08 11:10 | NUR ---
PATIENT WORING WITH PT, MYSELF, AND EXPERIMENTAL ROCKET SLED MECHANIC. PATIENT ABLE TO GET TO THE EDGE OF THE BED WITH ASSISTANCE. EDGE OF BED EXERCISES PERFORMED AND PATIENT TOLERATED WELL. PATIENT SCOOTED UP IN BED. PATIENT SWUNG INTO BED WITH THREE PERSON ASSIST. PATIENT LOWER EXTREMITIES ELEVATED ON A PILLOW. PATIENT HOB RAISED. PATIENT STATED NO FURTHER NEEDS AT THIS TIME. CALL LIGHT WITHIN REACH.
--- NOTE | 2023-07-08 13:18 | NUR ---
PATIENT CALLED FOR HELP WITH VOIDING. PATIENT ABLE TO VOID 400 ML OF LIGHT YELLOW URINE. PATIENT STATED NO FURTHER NEEDS AT THIS TIME. CALL LIGHT AND PERSONAL BELONGINGS ARE WITHIN REACH.
--- NOTE | 2023-07-08 14:13 | NUR ---
PATIENT ABLE TO VOID IN THE URINAL 525 ML LIGHT YELLOW URINE WITH ASSISTANCE. PATIENT WITH PAIN OF 6/10 IN THE RIGHT LEG. PRN PAIN MEDICATION ADMINISTERED PER THE EMAR. PATIENT WITH CPOX ON FINGER AND AT THE BEDSIDE. PATIENT STATED NO FURTHER NEEDS AT THIS TIME. CALL LIGHT AND PERSONAL BELONGINGS ARE WITHIN REACH.
--- NOTE | 2023-07-08 17:06 | NUR ---
PATIENT PAIN RATING 8/10 IN THE RIGHT LEG. PATIENT GIVEN PRN DILAUDID AND SLIDING SCALE INSULIN DOSE. PATIENT REPOSITIONED IN BED TO PROMOTE COMFORT. PATIENT VOID 425 ML LIGHT YELLOW URINE INTO THE URINAL WITH RN ASSISTANCE. PATIENT DINNER TRAY IS SET UP IN FRONT OF THE PATIENT. PATIENT IS ON ROOM AIR AT THIS TIME. PATIENT STATED NO FURTHER NEEDS AT THIS TIME. CALL LIGHT AND PERSONAL BELONGINGS ARE WITHIN REACH.
--- NOTE | 2023-07-08 19:26 | NUR ---
RECEIVED REPORT FROM DAY SHIFT RN. PATIENT IS RESTING IN BED WITH EYES CLSOED, CPOX READINGS ARE WNL. CALL LIGHT IN REACH.
--- NOTE | 2023-07-08 20:27 | NUR ---
PATIENTS DESIREE UNDER PATIENT CHANGED. JUAN LUIS CARE COMPLETED. PATIENT REPOSITIONED IN BED. PATIENTS RLE ELEVATED ON PILLOW. PATIENTS VITALS TAKEN AND RECORDED. INTAKE AND OUTPUT RECORDED. PATIENTS IV FLUSHED AND SL PER ORDER. PATIENTS OM MEDS PER ORDER. PATIENT RATES PAIN IN RLE 710, PRN PAIN MEDICATION GIVEN PER ORDER. PATIENT DENIES ANY SOB. PATIENT IS ON RA. PATIENT OPAL ANY FURTHER NEEDS AT THIS TIME. ICE WATER AND ICE CHIPS PROVIDED.
--- NOTE | 2023-07-08 21:58 | NUR ---
PATIENT IS RESTING IN BEAD ON BACK WEARING BIPAP. CPOX READINGS ARE WNL. PATIENT DENIES ANY NEEDS. CALL LIGHT IN REACH.
--- NOTE | 2023-07-08 22:00 | NUR ---
PT CALLS FOR ASSISTANCE WITH THE URINAL, PROVIDED. PT ASSISTED WITH PUTTING BIPAP ON. PT STATES NO OTHER NEEDS. CALL LIGHT IN REACH.
[2023-07-09] VITALS (10 sets, daily range): BP systolic 158–172; BP diastolic 73–84
--- NOTE | 2023-07-09 00:04 | NUR ---
PATIENT IS RESTING IN BED WITH EYES CLOSED, CPOX READINGS ARE WNL. PATIENT IS WEARING BIPAP. PATIENTS CALL LIGHT IN REACH.
--- NOTE | 2023-07-09 02:16 | NUR ---
PATIENT ASSISTED WITH URINAL. PATIENT ABLE TO VOID. PATIENT RATES PAIN AT A 7/10 IN RLE, PRN PAIN MEDICATION GIVEN PER ORDER. PATIENT REMOVED FROM BIPAP AND DOES NOT WANT TO GO BACK ON BIPAP AT THIS TIME. PATIENT IS ON RA AND CPOX IN USES. PATIENT DENIES ANY FURTHER NEEDS. CALL LIGHT IN REACH.
--- NOTE | 2023-07-09 04:41 | NUR ---
PATIENT REPOSITIONED IN BED. PATIENT RATES PAIN AT A 7/10, PRN PAIN MEDICATION GIVEN PER ORDER. PATIENTS VITALS TAKEN AND RECORDED. INTAKE AND OUTPUT RECORDED. PATIENT PROVIDED WITH ICE CHIPS. PATIENT DENIES ANY FURTHER NEEDS. CALL LIGHT IN REACH.
--- NOTE | 2023-07-09 05:42 | NUR ---
PATIENT IS RESTING IN BED WITH EYES CLOSED, CPOX READINGS ARE WNL. CALL LIGHT IN REACH.
--- NOTE | 2023-07-09 06:50 | NUR ---
PT STATES HE HAS 8/10 RLE PAIN, PRN PAIN MED PROVIDED. NO OTHER NEEDS AT THIS TIME. CALL LIGHT IN REACH.
--- NOTE | 2023-07-09 07:10 | NUR ---
REPORT RECEIVED FROM DIAMOND DRILLER RN SERENA. PATIENT IS AWAKE AND RESPONING TO NURSES AT THE BEDSDIE. PATIENT GIVEN ICE CHIPS UPON REQUEST. PATIENT STATED NO FURTHER NEEDS AT THIS TIME. CALL LIGHT AND PERSONAL BELONGINGS ARE WITHIN REACH.
--- NOTE | 2023-07-09 08:43 | NUR ---
0800 AND 0900 MEDICATIONS ADMINISTERED PER THE EMAR. PATIENT GIVEN A FRESH CUP OF ICE WATER. PATIENT STATED NO FURTHER NEEDS AT THIS TIME. CALL LIGHT AND PERSONAL BELONGINGS ARE WITHIN REACH.
--- NOTE | 2023-07-09 08:52 | NUR ---
PATIENT PROGRESS DISCUSSED IN AM MEETING. PATIENT UNABLE TO AMBULATE AT THIS TIME AND WILL LIKELY NEED NON-EMERGANT AMBULANCE TRANSFER. WILL CALL TO UPDATE [facility] AND [facility].
--- NOTE | 2023-07-09 08:57 | NUR ---
PER JOVI AT [facility] PATIENT HAS BEEN DECLINED AT THIS TIME DUE TO LEVEL OF CARE NEEDS.
--- NOTE | 2023-07-09 09:13 | NUR ---
PATIENT GIVEN 650MG OF PO TYLENOL + ONE 10/325MG OF NORCO FOR 5/10 RIGHT LEG PAIN AND PRE-MEDICATION FOR PHYSICAL THERAPY.
--- NOTE | 2023-07-09 10:59 | NUR ---
UR NOTE 07/09/23 REMAINS RECEIVING INPATIENT ORDERS IV PAIN MEDICATIONS, VS, THERAPIES, DISCHARGE PLANNING
--- NOTE | 2023-07-09 11:30 | NUR ---
PATIENT FULL ASSESSMENT COMPLETE AND DOCUMENTED IN THE CHART. PATIENT LUNG SOUNDS ARE CLEAR AND DIMINISHED IN THE BASES BILATERALLY. CPOX IS AT THE BEDSIDE WITH A BIPAP IN THE ROOM FOR AT NIGHT. PATIENT CARDIAC AUSCULTATION WITH NORMAL S1 AND S2. RADIAL PULSES ARE STRONG BILATERALLY. BOWEL TONES ARE ACTIVE IN ALL FOUR QUADRANTS. PATIENT MOVED BACK TO BED FROM THE CHAIR. PATIENT STATED PAIN WAS 10/10 IN THE RIGHT LEG AND WAS GIVEN IV DILAUDID. ONCE BACK IN THE BED, THE LEG BRACE WAS REMOVED TO PROMOTE COMFORT. UNDER THE RIGHT LEG THERE IS 2 PILLOWS AND UNDER THE LEFT LEG THERE IS ONE PILLOW. PRIOR TO RETURNING PATIENT BACK TO THE BED, THE LINES WERE CHANGED AND THE PATIENT NOW HAS CLEAN LINENS. PATIENT WITH DRESSING ON THE RIGHT GREAT TOE. BLE SKIN IS WRINKLEY DUE TO HISTORY OF LYMPHEDEMA. PATIENT TOLERATED THE TRANSFER WELL. BLOOD SUGAR TAKEN DURING THIS INTERACTION WELL AND DOCUMENTED IN THE EMAR. PATIENT STATED NO FURTHER NEEDS AT THIS TIME. CALL LIGHT AND PERSONAL BELONGINGS ARE WITHIN REACH.
--- NOTE | 2023-07-09 12:26 | NUR ---
PATIENT 1200 INSULIN DOSE ADMINISTERED PER THE EMAR. PATIENT TOLERATED WELL. PATIENT EDUCATED ON THE IMPORTANCE OF BEING OUT OF BED AND PREVENTING BED SORES. WHEN MENTIONED ABOUT GETTING OUT OF BED AGAIN LATER THIS AFTERNOON, THE PATIENT STATED "I DON'T KNOW ABOUT THAT". PATIENT STATED NO FURTHER NEEDS AT THIS TIME. CALL LIGHT AND PERSONAL BELONGINGS ARE WITHIN REACH.
--- NOTE | 2023-07-09 13:46 | NUR ---
CALL PLACED TO [facility] THIS AM REGARDING PLACMENT. NO ANSWER, LEFT VOICEMAIL. ATTEMPTED TO CONTACT [facility] AGAIN, NO ANSWER. ATTEMPTED TO CONTACT [facility], NO ANSWER.
--- NOTE | 2023-07-09 14:27 | NUR ---
PATIENT IS RESTING IN BED. PATIENT REPORTS PAIN IS 3/10 TO RIGHT LEG. BED REINFLATED. NO OTHER NEEDS AT THIS TIME.
--- NOTE | 2023-07-09 14:38 | NUR ---
RIGHT GREAT TOE DRESSING REMOVED, TOENAIL IS ABSENT, WOUND BASE IS DRY. AREA CLEANED AND CLORHEXADINE APPLIED. AREA IS OPEN TO AIR. RIGHT BARTHOLOMEW SMALL BANDAID REMOVED, SMALL DRY WOUND LEFT OPEN TO AIR AND CLORHEXADINE APPLIED.
--- NOTE | 2023-07-09 15:26 | NUR ---
PATIENT IS LYING IN BED AT THIS TIME. PATIENT STATED PAIN IS 2/10 IN THE RIGHT LOWER LEG. PATIENT RIGHT GREAT TOE IS OPEN TO AIR AND DRY. BANDAGE WAS REMOVED FROM THE RIGHT BARTHOLOMEW. BLISTER IS DRY AND INTACT. PATIENT DOES NOT HAVE THE LEG BRACE ON DUE TO HIM BEING STABLE IN THE BED. PATIENT IS ON ROOM AIR AIR AND THE CPOX SHOWS HIS SPO2 IS AT 93% AT THIS TIME. PATIENT STATED NO FURTHER NEEDS AT THIS TIME. CALL LIGHT AND PERSONAL BELONGINGS ARE WITHIN REACH.
--- NOTE | 2023-07-09 18:01 | NUR ---
PATIENT PUT ON BED CARLISLE AND UNABLE TO HAVE A BOWEL MOVEMENT. PATIENT ABLE TO VOID AND WAS LIGHT YELLOW URINE. PATIENT BED BATH COMPLETE WITH SHOWER CAP. PATIENT JUAN LUIS CARE COMPLETE. PATIENT REPOSITIONED AND BOOSTED UP IN BED. LEFT LEG ELEVATED ON ONE PILLOW AND RIGHT LEG IS ELEVATED ON 2 PILLOWS. PATIENT STATED NO FURTHER NEEDS AT THIS TIME. CALL LIGHT AND PERSONAL BELONGINGS ARE WITHIN REACH.
--- NOTE | 2023-07-09 19:17 | NUR ---
Patient is resting in bed awake watching TV at shift change. Denies pain or discomfort at this time.
--- NOTE | 2023-07-09 20:59 | NUR ---
Patient resting in bed layiong on back. Assessment complete. HS medication given see MAR. RLE cms intact, elevated on pillows. No immideate distress at this time. All needed items within reach.
[2023-07-09] MEDS ORDERED: SENNOSIDES/DOCUSATE 1 EA TAB PO SCH (21:00)
--- NOTE | 2023-07-09 21:20 | NUR ---
CALL LIGHT ANSWERED. ASSISTED USING THE URINAL WHILE LAYING DOWN. URINATED 275 ML LIGHT YELLOW URINE. PATIENT IS ON CPAP AT THIS TIME. PRIMARY RN WAS NOTIFIED. PATIENT DENIES FURTHER CARE OR NEEDS AT THIS TIME. CALL LIGHT AND SIDE TABLE WITHIN REACH.
--- NOTE | 2023-07-09 22:12 | NUR ---
PATIENT CALLED TO BE OFF FROM CPAP AT THIS TIME. DONE. NO OTHER NEEDS AT THIS MOMENT.
--- NOTE | 2023-07-09 23:22 | NUR ---
Patient called requesting pain medications. C/O pain 12/04 to RLE. PRN medication given see JUL. CPOX in place and reading WNL. No noted distress at this time. Denies any SOB. Positive CMP to RLE. All needed items within reach.
[2023-07-10] VITALS (8 sets, daily range): BP systolic 142–179; BP diastolic 65–88
--- NOTE | 2023-07-10 00:18 | NUR ---
CPOX alarming. 02sat 86% on 2 L/NC. Patient was sleeping. Bipap put back on. CPOX reading 93%. No noted distress at this time. All items within reach.
--- NOTE | 2023-07-10 03:02 | NUR ---
Patient in bed sleeping. Wakes to verbal stimuli. Respirations even and unlabored. CPOX readings WNL. No C/O pain or discomfort at this time. Call light within reach.
--- NOTE | 2023-07-10 04:11 | NUR ---
Patient c/o pain in RLE. PRN [place] and Tylenol given. Urinal used. CPOX in place, readings WNL. Patient repositioned in bed. All needed items with reach.
--- NOTE | 2023-07-10 05:36 | NUR ---
ASSISTED PATIENT USING THE URINAL WHILE LAYING DOWN IN BED. VOIDED 350ML YELLOW URINE. NO OTHER NEEDS AT THIS TIME.
--- NOTE | 2023-07-10 07:00 | NUR ---
BEDSIDE HANDOFF REPORT RECEIVED FROM PRINTING FILM STRIPPER RN. PT SLEEPING, LEFT UNDISTURBED.
[2023-07-10] MEDS ORDERED: POLYETHYLENE GLYCOL 3350 1 PACKET PO SCH (09:00)
--- NOTE | 2023-07-10 09:00 | NUR ---
PT RESTING INBED. MORNING ASSESSMENT COMPLETED. DR. DEXTER TO BEDSIDE, EVALUTAED PT. PT GIVEN BISACODYL SUPPOSITORY. DISCUSSED PLAN OF CARE FOR THE DAY. PT DENIES OTHER NEEDS AT THIS TIME.
[2023-07-10] MEDS ORDERED: OXYCODONE/APAP 10/325 TAB PO PRN (09:15)
[2023-07-10] MEDS ORDERED: MORPHINE SULFATE 15 MG TAB PO PRN (09:15)
--- NOTE | 2023-07-10 12:09 | NUR ---
ROUNDS. PT INDISPOSED. NO VISIT. PROVIDED SILENT PRAYER.
--- NOTE | 2023-07-10 12:43 | NUR ---
pt given 3 units ss humalog. pt assisted off bed [place], had small loose bm. pt rating pain 4/10. pt denies other needs at this time.
--- NOTE | 2023-07-10 12:56 | NUR ---
UR NOTE 07/10/23 MEDICALLY STABLE FOR DISCHARGE PURSUING AVAILABLE SNF BED THROUGH CASE MANAGEMENT, NO ACCEPTING BED YET VARIANCE FOR DISCHARGE
--- NOTE | 2023-07-10 13:16 | NUR ---
PT ASSISTED TO BSC WITH ASHER LIFT. PT HAD MEDIUM BM, PERICARE PROVIDED. PT NOW SITTING IN CHAIR, EATING LUCNH. CALL LIGHT WITHIN REACH.
--- NOTE | 2023-07-10 14:30 | NUR ---
PT ASHER LIFTED TO BED. PT STATES PAIN REMAINS AT 4/10. PT DENIES NEEDS AT THIS TIME.
--- NOTE | 2023-07-10 17:38 | NUR ---
PT GIVEN 5 UNITS HUMALOG FOR BG 230, PT DECLINING DINNER AT THIS TIME. PT STATES PAIN 2/10, DENIES NEED FOR PAIN MEDICATION.
--- NOTE | 2023-07-10 19:00 | NUR ---
Patient resting in bed at shift change. Family at bedside. Denies any pain or discomfort. All needed items within reach.
--- NOTE | 2023-07-10 19:00 | NUR ---
PATIENT IN BED WATCHING TV AT THIS TIME. VITALS AND I&O'S DONE AND CHARTED. RN NOTIFIED OF BLOOD PRESSURE. CALL LIGHT IN REACH. NO FURTHER NEEDS AT THIS TIME.
[2023-07-10] MEDS ORDERED: hydrALAZINE HCL 20 MG/ML VIAL IV PRN (19:30)
--- NOTE | 2023-07-10 21:20 | NUR ---
Alert and oreitned X 4, able to make needs known. Patient assisted to the [facility] via [employer] lif. LG BM noted. Patient back in bed with no difficulties in transfer, tollerated well. Patient voiding quanity sufficient. Assessment completed. Denies any pain or discomfort at this time. Positive CMS to RLE. HS medications given. PRN medication for elevated BP given see MAR. All needed items within reach.
--- NOTE | 2023-07-10 22:47 | NUR ---
Patient took off Bipap, he does not want to wear it at this time. Cpox in place and reading WNL without Bipap.
--- NOTE | 2023-07-11 02:51 | NUR ---
Patient used urinal. Sufficient quanties voided. NO c/o pain or discomfort. All necessary items within reach.
--- NOTE | 2023-07-11 03:57 | NUR ---
Patient assisted with use of urinal. Voided quanity sufficient amounts. Denies any pain at this time. All items within reach.
--- NOTE | 2023-07-11 04:19 | NUR ---
Patient has not c/o pain or discomfort in his RLE this shift. Patient was transfered via gail to use the comode. He tollerated transfer well and denied any pain discomfort. No c/o of pain at this time in the shift.
[2023-07-11 04:31] VITALS: BP 153/75
[2023-07-11 04:35] VITALS: BP 153/75
--- NOTE | 2023-07-11 06:22 | NUR ---
Patient restin in bed appears to be sleeping at this time. Bipap is on, CPOX reading WNL. Respirations even and unlabored. All needed items within reach.
--- NOTE | 2023-07-11 07:00 | NUR ---
REPORT RECEIVED FROM RUNNING SPECIALIST RN DC. PATIENT IS RESTING WITH THE BIPAP IN PLACE AND EYES CLOSED. PATIENT WITH CALL LIGHT AND PERSONAL BELONGINGS ARE WITHIN REACH.
--- NOTE | 2023-07-11 08:21 | NUR ---
PATIENT 0800 AND 0900 MEDICATIONS ADMINISTERED PER THE EMAR. PATIENT REFUSED SENNAKOT AND MIRALAX DOSE THIS MORNING DUE TO HAVING SEVERAL BOWEL MOVEMENTS YESTERDAY. PATIENT FULL ASSESSMENT COMPLETE AND DOCUMENTED IN THE CHART. PATIENT STATED PAIN WAS 1/10 IN THE RIGHT LOWER EXTREMITY WHEN ASKED. PATIENT IS NOT REQUESTING PAIN MEDICATIONS AT THIS TIME. PATIENT LUNG SOUNDS ARE CLEAR IN ALL LUNG BOLAÑOS BILATERALLY. PATIENT IS ON ROOM AIR AND THERE IS A CPOX AT THE BEDSIDE. SPO2 IS 90-92%. PATIENT CARDIAC AUSCULTATION WITH NORMAL S1 AND S2. RADIAL PULSES ARE STRONG BILATERALLY. IV SITE FLUSHES WELL WITH 10 ML NORMAL SALINE AND IS SALINE LOCKED. PATIENT IV DRESSING IS CLEAN, DRY, AND INTACT. BOWEL TONES ARE ACTIVE IN ALL FOUR QUADRANTS. PATIENT SKIN WITH BRUISING IN THE HANDS, BLISTER ON THE RIGHT BARTHOLOMEW THAT IS DRY, RIGHT GREAT TOE IS OPEN TO AIR AFTER HAVING THE TOE NAIL REMOVED, AND WRINKLEY SHINS AND FEET BILATERALLY. CAPILLARY REFILL IN THE UPPER AND LOWER EXTREMITIES IS LESS THAN 3 SECONDS BILATERALLY. PATIENT BREAKFAST TRAY IS SET UP. PATIENT IS REQUESTING A BED BATH TODAY. PATIENT STATED NO FURTHER NEEDS AT THIS TIME. CALL LIGHT AND PERSONAL BELONGINGS ARE WITHIN REACH.
--- NOTE | 2023-07-11 08:43 | NUR ---
Patient wanted to brush his teeth all I did was set up on his table he is able to brush his teeth independent.
[2023-07-11 09:23] VITALS: BP 165/81
[2023-07-11 09:30] VITALS: BP 165/81
--- NOTE | 2023-07-11 10:00 | NUR ---
RECVD CALL FROM [facility] AT [facility] WHO CAN ACCEPT THE PATIENT TODAY. PATIENT REQUIRES HOME CPAP [facility] DOES NOT HAVE ONE ON HAND. PATIENT NOTIFIED AND WILL HAVE FAMILY DELIVER HIS CPAP. DR. DEXTER AND MARCELO PETTIT UPDATED OF PLAN FOR DISCHARGE BY EMS AT 1330.
[2023-07-11] MEDS ORDERED: OXYCODONE-ACET1 EAC3 PO (10:09)
[2023-07-11] MEDS ORDERED: MAG DELAY64 M1 PO (10:11)
--- NOTE | 2023-07-11 10:25 | NUR ---
ROUNDS. PT RECEIVING NURSING CARE. DID NOT INTERRUPT. PROVIDED PRAYER.
--- NOTE | 2023-07-11 11:41 | NUR ---
PATIENT MOVED BACK TO THE BED VIA ASHER LIFT AND 2 PA. PATIENT TOLERATED WELL AND PAIN HAS STAYED AT 1/10 ALL DAY. PATIENT BED BATH COMPLETE. PATIENT WITH CLEAN LINENS AND A FRESH GOWN ON. PATIENT WITH ASHER LIFT IN PLACE TO HELP WITH TRANSPORTATION UPON DISCHARGE. KARIME LAWSON GOT THE CBG ON THE PATIENT. PATIENT RE-CONNECTED TO THE CPOX AND IT IS AT THE BEDSIDE. PATIENT STATED NO FURTHER NEEDS AT THIS TIME. CALL LIGHT AND PERSONAL BELONGINGS ARE WITHIN REACH.
[2023-07-11 12:40] VITALS: BP 156/80
[2023-07-11 12:41] VITALS: BP 156/80
--- NOTE | 2023-07-11 12:41 | NUR ---
PATIENT DISCHARGE INSTRUCTIONS AND EDUCATION ON FEMUR FRACTURE REVIEWED WITH THE PATIENT. THE PATIENT STATED NO QUESTIONS OR CONCERNS AT THIS TIME. VITAL SIGNS TAKEN AND DOCUMENTED IN THE CHART. PATIENT PAIN IS CURRENTLY 2/10 IN THE RIGHT LOWER EXTREMITY. PATIENT IS NOT REQUESTING PAIN MEDICATION AT THIS TIME. PATIENT IV REMOVED AND CATHETER TIP INTACT WITH NO REDNESS OR SWELLING AT THE SITE. PATIENT TOLERATED WELL. CPOX DISCONNECTED AND IS SHUT OFF. PATIENT STATED NO FURTHER NEEDS AT THIS TIME. CALL LIGHT AND PERSONAL BELONGINGS ARE WITHIN REACH.
--- NOTE | 2023-07-11 13:20 | NUR ---
REPORT GIVEN TO SOUTH IN [place] TO MARCELO AT 1305. RN STATED NO FURTHER QUESTION AT THIS TIME. CALL BACK NUMBER GIVEN TO HER IN CASE ANYTHING COMES UP. CALL ENDED.
== END 2023-07-11 13:41 | DRG 534 ==
LOC: ED 21:23 → MS 07-05 09:10
PROVIDERS: Family Medicine; ADMIT Internal Medicine; ATTEND Internal Medicine
DX: S72.464A Nondisplaced supracondylar fracture with intracondylar extension of lower end of right femur, initial encounter for closed fracture (principal); W01.0XXA Fall on same level from slipping, tripping and stumbling without subsequent striking against object, initial encounter; E11.9 Type 2 diabetes mellitus without complications; Z98.890 Other specified postprocedural states; Z79.02 Long term (current) use of antithrombotics/antiplatelets; Z79.4 Long term (current) use of insulin; E66.01 Morbid (severe) obesity due to excess calories; I10 Essential (primary) hypertension; K59.00 Constipation, unspecified; I89.0 Lymphedema, not elsewhere classified; Z11.52 Encounter for screening for COVID-19
CPT/HCPCS: 36415; 73130; 73560; 73700; 80053; 81003; 83735; 85025; 94660; 94762; 97110; 97112; 97162; 97165; 97530; 97535; A9270; J0360; J1170; J1650; J1815; J2270; U0002

== ENCOUNTER 2024-09-28 22:04 | Inpatient (IN) | payer MEDICARE, OTHER ==
[~2024-09-28] VITALS: Ht 185.4 cm; Wt 147.5 kg
[~2024-09-28 22:04] MED LIST changes: +FRUIT & VEGETA1 EACH PO; +MAG DELAY64 M1 PO; +OXYCODONE-ACET1 EAC3 PO
[2024-09-28] MEDS ORDERED: HYDROmorphone HCL 1 MG/ML SYR IV ONE (22:15)
[2024-09-28 22:20] LABS: EOSINOPHILS 1.7 % (0-6); HEMATOCRIT 40.4 % (35.0-50.0); HEMOGLOBIN 13.8 g/dL (12.0-18.0); LYMPHOCYTES 15.9 % (24-44); MCH 28.7 (27-36); MCHC 34.2 g/dl (30-36); MCV 83.7 fl (81-99); MONOCYTES 6.3 % (0-12); NEUTROPHILS 75.1 % (39-80); PLATELET COUNT 291 K/uL (140-440); RBC 4.82 M/ul (4.3-5.7); RDW 16.1 (10.5-15.0)
[2024-09-28 22:54] LABS: ALBUMIN 3.2 g/dL (3.4-5.0); ALBUMIN/GLOBULIN RATIO 0.74 (1.1-2.4); ALCOHOL, MEDICAL <3 ng/dL (<3); ALKALINE PHOSPHATASE 103 U/L (46-116); ALT (SGPT) 23 U/L (14-59); ANION GAP 11.4 (7-21); AST (SGOT) 14 U/L (15-37); BILIRUBIN, TOTAL 0.4 mg/dL (0.2-1.0); BUN/CREATININE RATIO 20.96 (6.0-28.6); CALCIUM 9.1 mg/dL (8.5-10.1); CARBON DIOXIDE 29 mmol/L (21-32); CHLORIDE 102 mmol/L (98-107); CREATININE, SERUM 1.24 mg/dL (0.70-1.30); GLOMERULAR FILTRATION RATE,EST 63 mL/min (>60); POTASSIUM 4.4 mmol/L (3.5-5.1); PROTEIN, TOTAL 7.5 g/dL (6.4-8.2); UREA NITROGEN 26 mg/dL (7-18)
[2024-09-28] MEDS ORDERED: HYDROmorphone HCL 1 MG/ML SYR IV PRN (23:45)
[2024-09-29] MEDS ORDERED: HYDROmorphone HCL 1 MG/ML SYR IV PRN ×3 (00:15→03:00)
[2024-09-29] MEDS ORDERED: HYDROmorphone HCL 1 MG/ML SYR ONE (00:19)
[2024-09-29] MEDS ORDERED: ondansetron HCL 4 MG/2 ML VIAL IV PRN ×2 (03:00→08:15)
[2024-09-29] MEDS ORDERED: diazePAM 10 MG/2 ML SYR IV PRN (03:00)
[2024-09-29] MEDS ORDERED: ETOMIDATE 40 MG/20 ML VIAL IV ONE (03:00)
[2024-09-29] MEDS ORDERED: ACETAMINOPHEN 325 MG TAB PO PRN (03:00)
[2024-09-29] MEDS ORDERED: METOPROLOL SUC100 MG PO (03:39)
[2024-09-29] MEDS ORDERED: ELIQUIS5 MG PO (03:39)
[2024-09-29] MEDS ORDERED: AMLODIPINE BESY10 MG PO (03:39)
[2024-09-29] MEDS ORDERED: LISINOPRIL40 MG PO (03:39)
[2024-09-29 04:05] VITALS: BP 119/68
--- NOTE | 2024-09-29 04:30 | NUR ---
PT TO FLOOR WITH ED RN VIA STRETCHER. ALERT AND ORIENTED. 4PA TO TRANSFER TO BED WITH HOVER MAT. REPORT RECEIVED. ORDERS RECEIVED. BILAT KNEE IMMOBILIZERS PLACED. ICE PACKS PROVIDED TO BILAT KNEES. PT REPORTS BLE PAIN /. PRN FOR PAIN ADMIN PER EMAR. ADMISSION ASSESSMENT COMPLETE. COMPOUNDER HELPER IN FOR ADMISSION HX. CPOX PLACED. 2L/NC IN PLACE. PT ORIENTED TO ROOM AND NURSE CALL LIGHT. PT DENIES FURTHER NEEDS. CALL LIGHT IN REACH.
--- NOTE | 2024-09-29 04:53 | NUR ---
CPOX ALARMING. SpO2 85% ON 2L/NC. PT SNORING SOFTLY IN BED. AWAKENS EASILY. REPORTS CPAP USE AT HOME. DISCUSSED HAVING FAMILY BRING HOME CPAP IN, PT AGREEABLE. 2L/OXYMASK PLACE. SpO2 MID 90'S.
--- NOTE | 2024-09-29 06:28 | NUR ---
PT RESTING IN BED WITH EYES CLOSED. RESPIRATIONS EVEN. CALL LIGHT IN REACH.
[2024-09-29] MEDS ORDERED: IBLOOD GLUCOSE TEST STRIP 1 EA TEST VI SCH ×3 (07:00→08:32)
[2024-09-29] MEDS ORDERED: Insulin Regular, Human 100 UNIT/ML ML SUB-Q SCH ×2 (07:00→08:00)
--- NOTE | 2024-09-29 07:18 | NUR ---
PT RESTING SOUNDLY AT TIME OF SHIFT REPORT LEFT UNDISTURBED. SATS 94% 02 AT 1LPM CALL LIGHT AND FRESH H20 IN REACH
--- NOTE | 2024-09-29 07:21 | NUR ---
GAMBLING BOX PERSON RETURNS PT WALLET AND NOTEBOOK APPARENTLY DROPPED IN AMBULANCE. ITEMS PLACED AT BEDSIDE
--- NOTE | 2024-09-29 07:41 | NUR ---
HOURLY ROUNDING. PATIENT IS SLEEPING. NURSE SCHUMACHER FROM ER DROPPED OFF PATIENT WALLET AND PHONE. BOARD HAS BEEN UPDATED BY NURSE. NO REQUEST FROM PATIENT AT THIS TIME
--- NOTE | 2024-09-29 08:11 | NUR ---
KRISTIE IN TO SEE PT WHO IS INITIALLY VERY SLEEPY. PT IS ABLE TO WAKE UP AFTER A FEW MINUTES AND ANSWER QUESTIONS APPROPRIATELY. PLAN OF CARE DISCUSSED ANSWERS ALL OF PT QUESTIONS.
[2024-09-29] MEDS ORDERED: DEXTROSE 50% 50 ML SYR IV PRN ×2 (08:15)
[2024-09-29] MEDS ORDERED: DEXTROSE 5% 1,000 ML IV PRN (08:15)
[2024-09-29] MEDS ORDERED: IBLOOD GLUCOSE TEST STRIP 1 EA TEST XX PRN (08:15)
[2024-09-29] MEDS ORDERED: MORPHINE SULFATE 4 MG/ML VIAL IV PRN (08:15)
[2024-09-29] MEDS ORDERED: GLUCAGON,HUMAN RECOMBINANT 1 MG/ML VIAL SUB-Q PRN (08:15)
[2024-09-29] MEDS ORDERED: OXYCODONE HCL 5 MG TAB PO PRN (08:15)
[2024-09-29] MEDS ORDERED: INSULIN LISPRO 100 UNIT/ML ML SUB-Q SCH ×2 (08:32→12:00)
--- NOTE | 2024-09-29 08:44 | NUR ---
PT SITTING UP IN BED EATING MORNING MEAL DENIES DISCOMFORTS OR NEEDS. CHANGE IN PAIN MEDS AND REGIMEN DISCUSSED PT VERBALIZES UNDERSTANDING
[2024-09-29] MEDS ORDERED: INSULIN GLARGINE-YFGN 100 UNIT/ML ML SUB-Q SCH (09:00)
[2024-09-29] MEDS ORDERED: METOPROLOL SUCCINATE 100 MG TABCR PO SCH ×2 (09:00)
[2024-09-29] MEDS ORDERED: lisinopriL 20 MG TAB PO SCH (09:00)
[2024-09-29] MEDS ORDERED: AMLODIPINE BESYLATE 10 MG TAB PO SCH (09:00)
[2024-09-29] MEDS ORDERED: TORSEMIDE 20 MG TAB PO SCH (09:00)
--- NOTE | 2024-09-29 09:01 | NUR ---
CALLED AND SPOKE WITH SUZIE AT [facility]. PATIENT HAS NO CURRENT TOOL ROOM LATHE OPERATOR MEDICAID OR ANY OTHER MEDICAID SERVICES OR FOOD STAMPS AT THIS TIME.
[2024-09-29 09:11] VITALS: BP 139/65
--- NOTE | 2024-09-29 09:14 | NUR ---
PT FULLY ALERT NOW AND TALKATIVE. MEETS WITH DC EXHIBITIONS AND COLLECTIONS MANAGER. PT SITTING UP IN BED FINISHED HIS BREADKFAST 95%. ORIENTED TO CALL LIGHT AND BED CONTROLS FRESH H20 PROVIDED PT DENIES OTHER NEEDS
--- NOTE | 2024-09-29 10:12 | NUR ---
CHART SENT TO T.
--- NOTE | 2024-09-29 10:20 | NUR ---
PT AGREES PAIN MED WAS EFFECTIVE. CONTINUES UP IN BED AGREES TO ADJUST HIS BOTTOM PROVIDING PRESSURE RELIEF THROUGHT THE DAY. FRESH H20 REFILLED PT DENIES OTHER NEEDS OF
--- NOTE | 2024-09-29 10:42 | NUR ---
PT HAD AGREED PAIN MED WAS EFFECTIVE THEN STATES "UNTIL I MOVED" REQUESTED FURTHER PAIN RELIEF. BOARD UPDATED WHEN NEXT OXY IS AVAILABLE TO HIM AND BREAKTHROUGH MED ADMINISTERED IN THE MEAN TIME
--- NOTE | 2024-09-29 10:54 | NUR ---
INTO SEE PATIENT. PERSONAL HEALTH INFORMATION REVIEWED. PATIENT RECENTLY STAYED AT [facility] IN [facility] FROM 03-13-25 TO 07-23-24. THEN STAYED AT [facility] UNTIL 09-25-24. HE WENT TO HIS HOME IN [place] AT DISCHARGE. WHERE HE HAS NO STEPS INTO HIS HOUSE AND AN ELECTRIC WHEELCHAIR HE USES INSIDE. HE DOES HAVE A CPAP THROUGH [facility]. HE HAS A NEIGHBOR THAT DOES CAREGIVING FOR HIM FOR A COUPLE HOURS A DAY. HAS A SISTER THAT IS OLDER THAN HIM A CONTACT. DENIES DIFFCULTY PAYING BILLS BUT STATES HE IS RUNNING OUT OF HIS 401K. TALKED WITH HIM ABOUT [employer] AND CREW SCHEDULER MEDICAID. HE DID NOT SEEM READY FOR CREW SCHEDULER MEDICAID AT THIS TIME. HE STATES "I WILL NOT SELL MY HOUSE IT IS SUPPOSED TO STAY IN THE FAMILY." WILL SEND CHART TO SNF TO SEE IF HE HAS ANY MEDICARE DAYS. NO FUTHER CM NEEDS AT THIS TIME.
--- NOTE | 2024-09-29 10:55 | NUR ---
UR CLINICAL REVIEW: 2 MN FOR VERSALUS-PER INSULATION MANAGER MEETS INPT FOR BILAT TIBIAL FRACTURE WITH NEED FOR PAIN CONTROL/PT/OT MEDICARE INPT 09/29/24 @ 0805 ORDER MATCHES REG NO AUTH REQUIRED PER MEDICARE GUIDELINES DISCHARGE DISPO PENDING FURTHER EVAL
[2024-09-29 11:27] VITALS: BP 139/65
--- NOTE | 2024-09-29 11:30 | NUR ---
DR FLOWERS HAS BEEN NOTIFIED OF ELEVATED WBC AND TACHY HR STATES IT IS A RESPONSE TO TRAUMA NOT SEPSIS
--- NOTE | 2024-09-29 11:51 | NUR ---
HOURLY ROUNDING. UA WAS REQUESTED PER NURSE. I ASSISTED PATIENT WITH USING THE URINAL, I HELD THE URINAL WHILE PATIENT URINATED. (450ML) HAS BEEN DOCUMENTED ON THE BOARD. PATIENT REQUESTED ICE WATER, ICE WATER HAS BEEN GIVEN
[2024-09-29 11:53] LABS: BILIRUBIN, URINE NEGATIVE (negative); BLOOD/HGB, URINE NEGATIVE (Negative); KETONE, URINE NEGATIVE (Negative); LEUK ESTERASE, URINE NEGATIVE (negative); NITRITE, URINE NEGATIVE (negative)
[2024-09-29] MEDS ORDERED: PHARMACY RENAL DOSE ADJUSTMENT 1 DOSE MISC PO SCH (12:00)
[2024-09-29] MEDS ORDERED: IBLOOD GLUCOSE TEST STRIP 1 EA TEST XX SCH ×2 (12:00)
[2024-09-29 12:05] LABS: RED BLOOD CELLS, URINE 0-1 /hpf (0-5); WHITE BLOOD CELLS, URINE 0-1 /HPF (0-5)
[2024-09-29 12:06] LABS: BACTERIA, URINE NONE SEEN /hpf (negative); CASTS, URINE HYALINE 1+ \\lpf; COLLECTION TYPE, URINE CLEAN CATCH; CRYSTALS, URINE NONE SEEN (0-1+); EPITHELIAL CELLS, URINE SQUAMOUS 1+ /lpf (0-1+); REFLEX CULTURE, URINE No (No)
--- NOTE | 2024-09-29 12:24 | NUR ---
PT DESATS WHEN SLEEPING 02 WAS REAPPLIED. AWAKE NOW EATING NOON MEAL SATS 95% ON ROOM AIR.
[2024-09-29 13:09] VITALS: BP 136/72
--- NOTE | 2024-09-29 13:14 | NUR ---
PT RESTING COMFORTABLY AWAKENED FOR PAIN MED ANTICIPATE P/T HERE AT 1330 TO APPLY NEW BRACES AND WORK WITH HIM. PT VERBALIZES UNDERSTANDING
--- NOTE | 2024-09-29 13:47 | NUR ---
PATIENT HAS ACC[facility]PTANCE AT [facility] PENDING IF HE HAS ENOUGH RESIDENTIAL DAYS.
[2024-09-29] MEDS ORDERED: ACETAMINOPHEN 325 MG TAB PO SCH (14:00)
[2024-09-29 14:29] VITALS: BP 136/72
--- NOTE | 2024-09-29 14:35 | NUR ---
PT SITTING UP IN BED TALKING WITH A VISITOR DENIES NEEDS AT THIS TIME
--- NOTE | 2024-09-29 14:46 | NUR ---
HOURLY ROUNDING. PATIENT IS VISITING WITH AT BEDSIDE, NO REQUEST AT THIS TIME
[2024-09-29] MEDS ORDERED: HYDRALAZINE HCL50 MG PO (14:56)
--- NOTE | 2024-09-29 14:56 | NUR ---
MED REC COMPLETE
--- NOTE | 2024-09-29 15:12 | NUR ---
PT NOT AVAILABLE FOR VISIT. PROVIDED PRAYER.
--- NOTE | 2024-09-29 15:23 | NUR ---
PT REPORTS NEEDING TO MOVE HIS BOWELS. STAFF ASSIST PT UNABLE TO GET ON THE BEDPAN DUE TO PAIN. MEDICATED AND TURNED PT TO HIS SIDE 3 STAFF ASSIST CHUCKS PLACED PT ENCOURAGED TO EVACUATE HIS BOWEL.
--- NOTE | 2024-09-29 16:38 | NUR ---
PT UNABLE TO MOVE HIS BOWELS BUT DOES VOID. RETURNED TO RESTING SUPINE. TRANSFERRED TO A BED WITH TRAPEZE FOR BETTER MOBILITY
[2024-09-29 17:33] VITALS: BP 123/67
--- NOTE | 2024-09-29 17:45 | NUR ---
PT TRANSFERRED TO [facility]. PT ADMITTED THERE PREVIOUS TO THIS HOSPITALIZATION. PERSONAL ITEMS GATHERED PT WEARING HIS GLASSES CELL PHONE IN HAND. URINAL SENT FOR PT COMFORT PAIN MEDS GIVEN CONFIRMED LAST DOSE WITH EMT. PT DENIES ANY DISCOMFORT OTHER THAN ASHER TO JORDY. FAMILY NOTIFIED AND UPDATED PER HIS REQUEST
[2024-09-30] MEDS ORDERED: TORSEMIDE 20 MG TAB PO SCH (09:00)
== END 2024-09-29 17:45 | disposition short-term general hospital (02) | DRG 563 ==
LOC: ED 22:04 → MS 09-29 02:48
PROVIDERS: Family Medicine; ADMIT Student in an Organized Health Care Education/Training Program; ATTEND Student in an Organized Health Care Education/Training Program
DX: S82.251A Displaced comminuted fracture of shaft of right tibia, initial encounter for closed fracture (principal); S82.192A Other fracture of upper end of left tibia, initial encounter for closed fracture; S72.302K Unspecified fracture of shaft of left femur, subsequent encounter for closed fracture with nonunion; S72.301K Unspecified fracture of shaft of right femur, subsequent encounter for closed fracture with nonunion; Z68.41 Body mass index [BMI] 40.0-44.9, adult; S82.832A Other fracture of upper and lower end of left fibula, initial encounter for closed fracture; S82.831A Other fracture of upper and lower end of right fibula, initial encounter for closed fracture; E11.9 Type 2 diabetes mellitus without complications; I89.0 Lymphedema, not elsewhere classified; I10 Essential (primary) hypertension; E66.9 Obesity, unspecified; E87.6 Hypokalemia; E83.42 Hypomagnesemia; I25.10 Atherosclerotic heart disease of native coronary artery without angina pectoris; E78.00 Pure hypercholesterolemia, unspecified; W18.39XA Other fall on same level, initial encounter; Z60.2 Problems related to living alone; Y92.009 Unspecified place in unspecified non-institutional (private) residence as the place of occurrence of the external cause; Z79.4 Long term (current) use of insulin; Z86.711 Personal history of pulmonary embolism; Z79.01 Long term (current) use of anticoagulants; Z79.02 Long term (current) use of antithrombotics/antiplatelets; Z79.84 Long term (current) use of oral hypoglycemic drugs; Z87.891 Personal history of nicotine dependence
CPT/HCPCS: 73552; 73560; 73700; 80053; 81001; 85025; 94762; 96374; 96375; 96376; 97110; 97162; 97166; 97760; 99285-25; A9270; G0480; J1171; J1815; J2270

== ENCOUNTER 2025-01-18 11:57 | Inpatient (IN) | payer MEDICARE, OTHER ==
[~2025-01-18] VITALS: Ht 185.4 cm; Wt 153.5 kg
[~2025-01-18 11:57] MED LIST changes: +AMLODIPINE BESY10 MG PO; +ELIQUIS5 MG PO; +HYDRALAZINE HCL50 MG PO; +LISINOPRIL40 MG PO; +METOPROLOL SUC100 MG PO
[2025-01-18 12:26] LABS: BASOPHILS 0.3 % (0.2-1.2); EOSINOPHILS 0.1 % (0.8-7.0); LYMPHOCYTES 7.7 % (21.8-53.1); MCH 27.1 PG (25.7-32.2); MCHC 31.5 g/dL (32.3-36.5); MCV 85.8 fL (79.0-92.2); MONOCYTES 7.5 % (5.3-12.2); NEUTROPHILS 83.9 % (34.0-67.9); RBC 6.06 M/uL (4.63-6.08)
[2025-01-18 12:49] LABS: BLOOD/HGB, URINE NEGATIVE (Negative); KETONE, URINE TRACE (Negative); LEUK ESTERASE, URINE NEGATIVE (negative); NITRITE, URINE NEGATIVE (negative)
[2025-01-18 12:54] LABS: EPITHELIAL CELLS, URINE SQUAMOUS 2+ /lpf (0-1+)
[2025-01-18 12:55] LABS: BACTERIA, URINE RARE /hpf (negative); CASTS, URINE HYALINE 2+ \\lpf; CRYSTALS, URINE NONE SEEN (0-1+); REFLEX CULTURE, URINE No (No)
[2025-01-18 12:58] LABS: ALT (SGPT) 17.0 U/L (14-59); AST (SGOT) 40.0 U/L (15-37); GLOMERULAR FILTRATION RATE,EST 60.0 mL/min (>60); PROTEIN, TOTAL 8.1 g/dL (6.4-8.2); UREA NITROGEN 25.0 mg/dL (7-18)
[2025-01-18] MEDS ORDERED: SODIUM CHLORIDE 0.9% 1,000 ML IV PRN (14:15)
[2025-01-18] MEDS ORDERED: POTASSIUM CHLO10 ME1 PO (14:15)
[2025-01-18] MEDS ORDERED: DEXTROSE 5% 1,000 ML IV PRN (15:15)
[2025-01-18] MEDS ORDERED: IBLOOD GLUCOSE TEST STRIP 1 EA TEST XX PRN (15:15)
[2025-01-18] MEDS ORDERED: DEXTROSE 50% 50 ML SYR IV PRN ×2 (15:15)
[2025-01-18] MEDS ORDERED: LACTATED RINGER'S 1,000 ML IV SCH (15:15)
[2025-01-18] MEDS ORDERED: ACETAMINOPHEN 325 MG TAB PO PRN (15:15)
[2025-01-18] MEDS ORDERED: GLUCAGON,HUMAN RECOMBINANT 1 MG/ML VIAL SUB-Q PRN (15:15)
--- NOTE | 2025-01-18 16:15 | NUR ---
PT BROUGHT TO MEDSURG UNIT, [facility] WITH 3 RNs. PT ANSWERS ADMISSION QUESTIONS W/O DIFFICULTY. PT TAKES PO MEDICATIONS W/O DIFFICULTY. PT STATES NO FURTHER NEEDS AT THIS TIME, CALL LIGHT WITHIN REACH.
[2025-01-18 16:21] VITALS: BP 125/72
[2025-01-18] MEDS ORDERED: INSULIN LISPRO 100 UNIT/ML ML SUB-Q SCH (17:00)
[2025-01-18] MEDS ORDERED: IBLOOD GLUCOSE TEST STRIP 1 EA TEST VI SCH (17:00)
[2025-01-18 17:10] VITALS: BP 125/72
[2025-01-18] MEDS ORDERED: LACTATED RINGER'S 500 ML IV ONE (19:30)
--- NOTE | 2025-01-18 19:39 | NUR ---
RECEIVED REPORT ON PT. PT LAYING IN BED EYES CLOSED. CALL LIGHT WITH IN REACH.
[2025-01-18] MEDS ORDERED: OXYCODONE HCL 5 MG TAB PO PRN (20:15)
[2025-01-18 20:28] VITALS: BP 123/59
[2025-01-18 20:58] VITALS: BP 123/59
[2025-01-18] MEDS ORDERED: APIXABAN 5 MG TAB PO SCH (21:00)
--- NOTE | 2025-01-18 21:15 | NUR ---
ASSESSMENT COMPLETE. PROVIDED JUAN LUIS CARE AND APPLIED BARRIER OINTMENT TO PANNUS AND SCROTAL AREA. PT TOLERATED THIS WELL. PT NOW RESTING IN BED EYES OPEN. WATER REILLED. CALL LIGHT WITH IN REACH. PT HAS NO FURTHER NEEDS.
--- NOTE | 2025-01-18 23:35 | NUR ---
PT'S CPOX GOING OFF, PT SLEEPING EYES CLOSED. TURNED OXYGEN UP TO 4L PER OXY MASK. PT OX SAT 96%. CALL LIGHT WITH IN REACH.
[2025-01-19] VITALS (16 sets, daily range): BP systolic 80–124; BP diastolic 51–76
--- NOTE | 2025-01-19 01:34 | NUR ---
PT RESTING EYES CLOSED WITH 4L PER OXYMASK IN PLACE. PT AWAKENS WHEN WE TALK TO HIM. PT DENIES HAVING TO URINATE AT THIS TIME. PT DENIES ANY FURTHER NEEDS. CALL LIGHT WITH IN REACH, REVIEWED HOW TO USE CALL LIGHT.
[2025-01-19] MEDS ORDERED: LACTATED RINGER'S 1,000 ML IV ONE (02:00)
--- NOTE | 2025-01-19 02:09 | NUR ---
pt SLEEPING, CPOX ALARMS, SPO2 DROPS LOW 77% WHILE pt SLEEPING, 4L OXYGEN BY OXYMASK IN PLACE. SOLAR TECH IN ROOM. pt WAKES TO VOICE, INSTRUCTED TO DEEP BREATHE. TITRATED TO 5L OXYGEN BY SOLAR TECH. IV SITE ASSESSED, IVF BOLUS INFUSING WNL.
--- NOTE | 2025-01-19 02:18 | NUR ---
CPOX ALARMING. SpO2 81% ON 5L/OM. OXYGEN TITRATED TO 7L/OM. PT AWAKENS EASILY TO VOICE. SpO2 UP TO MID 90'S. PT AGREEABLE TO CPAP. RT NOTIFIED.
--- NOTE | 2025-01-19 05:12 | NUR ---
PHONE CALL WITH DR. DEXTER, NOTIFIED OF PT'S INCREASED WORK OF BREATHING AND INCREASED DEMAND OF OXYGEN. RECEIVED NEW PHONE ORDERS.
[2025-01-19 05:23] LABS: BASOPHILS 0.6 % (0.2-1.2); EOSINOPHILS 1.1 % (0.8-7.0); LYMPHOCYTES 21.8 % (21.8-53.1); MCH 27.3 PG (25.7-32.2); MCHC 30.4 g/dL (32.3-36.5); MCV 89.9 fL (79.0-92.2); MONOCYTES 10.6 % (5.3-12.2); NEUTROPHILS 65.6 % (34.0-67.9); RBC 4.54 M/uL (4.63-6.08)
--- NOTE | 2025-01-19 05:30 | NUR ---
PT INCONTINENT OF MEDIUM AMOUNT LIQUID BM. 4PA TO CHANGE ATTENDS. JUAN LUIS CARE DONE. SCROTAL EXCORIATIONS/EDEMA NOTED. BARRIER CREAM APPLIED. PILLOW CASE SLING UTILIZED TO ELEVATE SCROTUM. PT ABLE TO MINIMALLY ASSIST WITH CARES. 3PA TO REPOSITION IN BED. HOB ELEVATED. 5L/OM IN PLACE. SpO2 LOW 90'S. HR 70'S. NO FURTHER NEEDS. CALL LIGHT IN REACH
[2025-01-19 05:48] LABS: ALT (SGPT) 16.0 U/L (14-59); AST (SGOT) 35.0 U/L (15-37); GLOMERULAR FILTRATION RATE,EST 93.0 mL/min (>60); PHOSPHORUS, INORGANIC 5.0 mg/dL (2.5-4.9); PROTEIN, TOTAL 5.9 g/dL (6.4-8.2); UREA NITROGEN 24.0 mg/dL (7-18)
--- NOTE | 2025-01-19 05:50 | NUR ---
PT TRANSFERED TO CCU WITH HIS PERSONAL BELONGINGS, REPORT GIVEN TO CCU RN.
--- NOTE | 2025-01-19 06:27 | NUR ---
RECEIVED PT VIA BED FROM / 0615 PT PLACED ON BIPAP WITH NO O2. CURRENTLY 95%. DR DEXTER IN THE DEPARTMENT AT THIS TIME.
[2025-01-19] MEDS ORDERED: MAGNESIUM SULFATE 2 GM/50 ML BAG IV ONE (06:30)
[2025-01-19] MEDS ORDERED: LACTATED RINGER'S 1,000 ML IV SCH (06:45)
--- NOTE | 2025-01-19 06:59 | NUR ---
MAG RIDER STARTED AND IV FLUIDS PT DOES NOT LIKE THE BIPAP DUE TO THE NOISE IT IS MAKING, CALLED RT AND THEY STATE IT IS SOMETHING TO DUE EXCHASE
--- NOTE | 2025-01-19 07:45 | NUR ---
REPORT RECEIVED FROM WILVER DOWD. PT ON CPAP, RT TO CONVERT TO BIPAP PT KEEPS DESATTING IN HIS SLEEP WITH 7L 02 BLED IN.
--- NOTE | 2025-01-19 08:47 | NUR ---
CALLED U\S TO ALERT TO DVT RULE OUT. ARIE STATED HE WILL BE UP SHORTLY.
--- NOTE | 2025-01-19 08:58 | NUR ---
US IN ROOM. PT REMAINS ON BIPAP.
[2025-01-19] MEDS ORDERED: ENOXAPARIN SODIUM 40 MG/0.4 ML SYR SUB-Q SCH (09:00)
--- NOTE | 2025-01-19 09:53 | NUR ---
CALLED AND SPOKE WITH NANCY AT [facility]. PATIENT STAYED THERE FROM 10/15/2024-01/16/2025 AND LEFT BECAUSE HE DID NOT WANT TO STAY THERE PRIVATE PAY ANY LONGER. STATES SHE BELIEVES HE WOULD HAVE TO RETURN PRIVATE PAY IF HE RETURNS TO THEIR FACILITY. WILL SPEAK WITH PATIENT REGARDING HIS DISCHARGE PLAN BUT HE IS CURRENTLY ON CPAP AND UNABLE TO HOLD CONVERSATION AT THIS TIME.
--- NOTE | 2025-01-19 10:00 | NUR ---
NOTIFIED BY NANCY AT [facility] PATIENT DOES HAVE 10 MORE MEDICARE DAYS FOR SNF AVAILABLE.
[2025-01-19 10:20] LABS: BASE EXCESS, BLOOD GAS 7.9 mmol/L (-2-2); HCO3, BLOOD GAS 34.8 mmol/L (22-26); O2 SATURATION, BLOOD GAS > 100.0 % (95.0-100.0); PCO2, BLOOD GAS 58.2 mmHg (35-45); PH, BLOOD GAS 7.38 (7.35-7.45); PO2, BLOOD GAS 124 mmHg (80-100); TOTAL CO2, BLOOD GAS 36.6
[2025-01-19 10:21] LABS: OXYGEN RECEIVED, BLOOD GAS 36%
--- NOTE | 2025-01-19 10:44 | NUR ---
ASSISTED PHYS THERAPY TO REMOVE BIPAP. PT SATS REMAIN IN THE 90'S. PT ANSWERING ALL QUESTIONS APPROP. PT TOKE SCHEDULED MED, STATED HE DOES NOT LIKE STRAWS THEN PROCEEDED TO CHOKE ON WATER. STATES HE DOES NOT NORMALLY DO THAT.
--- NOTE | 2025-01-19 11:00 | NUR ---
ATTEMPT TO COMPLETE ASSESSMENT, PATIENT CALLS NURSING STAFF TO ASSIST HIM WITH URINAL. WILL REATTEMPT TO ASSESS PATIENT LATER TODAY
--- NOTE | 2025-01-19 11:11 | NUR ---
UR CLINICAL REVIEW: 2 MN FOR VERSALUS-PER USPS LETTER CARRIER MEETS INPT FOR [facility] WITH NEED FOR IV HYDRATION,SERIAL LABS AND MONITORING MEDICARE INPT 01/18/25 @ 1513 ORDER MATCHES REG DISCHARGE PENDING FURTHER EVALUATION. PATIENT RECENTLY RELEASED FROM SNF
--- NOTE | 2025-01-19 11:15 | NUR ---
SPOKE WITH PT REGARDING HIS RECENT FX AND SUBSEQUENT PLACEMENTS. PT A\O TO ALL. PHARM IN ROOM TO ASSESS MED LIST
[2025-01-19] MEDS ORDERED: METHOCARBAMOL500 MG PO (11:28)
[2025-01-19] MEDS ORDERED: OXYCODONE HCL5 M3 PO (11:28)
--- NOTE | 2025-01-19 11:29 | NUR ---
MED REC COMPLETE
[2025-01-19] MEDS ORDERED: PHARMACY RENAL DOSE ADJUSTMENT 1 DOSE MISC PO SCH (12:00)
--- NOTE | 2025-01-19 12:30 | NUR ---
PT HAD LARGE AMOUNT SOFT STOOL. PT TRIED TO HELP ROLL HIM SIDE TO SIDE BUT NOT MUCH STRENGTH. 3 PERSON TO CHANGE BEDDING AND DEPENDS. APPLIED BARRIER CREAM TO SCROTUM AND AFFECTED AREAS.
--- NOTE | 2025-01-19 12:53 | NUR ---
ADMINISTERED SCHEDULED MEDS. PT EATING LUNCH. AGAIN STATED HE DOES NOT WANT THE BP CUFF OR OTHER MONITORS ON. EXPLAINED THAT HE IS IN CCU AND IT IS PROTOCOL.
--- NOTE | 2025-01-19 13:07 | NUR ---
PT NOT AVAILABLE FOR VISIT. PROVIDED PRAYER.
--- NOTE | 2025-01-19 13:15 | NUR ---
BLADDER SCANNED PT FOR 628, ASSISTED PT TO USE URINAL FOR 600ML DARK YELLOW URINE.
--- NOTE | 2025-01-19 13:19 | NUR ---
CARES BEING COMPLETED BY NURSING STAFF, WILL RETURN TO SEE PATIENT.
--- NOTE | 2025-01-19 13:38 | NUR ---
PATIENT LIVES ALONE IN HOUSE, NO STAIRS. HAS A CPAP, WALKER, CANE, WHEELCHAIR, SHOWER BENCH. DOES NOT DRIVE, HAS ASSISTANCE FROM FRIENDS/FAMILY FOR TRANSPORTATION. STATES HE HAS NO FINANCIAL DIFFICULTIES PAYING FOR UTILITIES, FOOD OR MEDS. DISCUSSED PREVIOUS STAY AT [facility]. STATES HE IS WILLING TO RETURN TO [facility] FOR SNF [place]. DENIES OTHER CM NEEDS AT THIS TIME.
--- NOTE | 2025-01-19 14:01 | EKG ---
[facility] [address] [place] [address] Signed Sinus rhythm with 1st degree AV block Otherwise normal ECG When compared with ECG of 01-OCT-2019 03:58, No significant change was found Confirmed by Donna Dexter MD () on 01/19/2025 2:01:32 PM Electronically Signed By: DONNA DEXTER MD 01/19/25 1401 PATIENT NAME: COMBSFANNIE Electrocardiogram DATE OF : 51 PHYSICIAN: DONNA DEXTER MD REPORT #: [id number] REPORT IS CONFIDENTIAL AND NOT TO BE RELEASED WITHOUT AUTHORIZATION
--- NOTE | 2025-01-19 14:45 | NUR ---
REFERRAL SENT TO [facility] FOR SNF.
--- NOTE | 2025-01-19 16:26 | NUR ---
PT CHANGED TWICE HE HAD ANOTHER BM WE WERE CHANGING THE FIRST.BARRIER CREAM APPLIED TO ALL REDDENED AREAS. [facility] BED HERE, WAITING FOR MAINTENCE TO CHECK. CALL LIGHT IN REACH.
--- NOTE | 2025-01-19 17:43 | NUR ---
PATIENT CALLED AND SAID HE WAS DONE WITH DINNER. THIS DAIRY FARM WORKER IN TO TAKE DINNER TRAY. PATIENT SITTING UP IN BED. CALL LIGHT IN REACH. NO FURTHER NEEDS AT THIS TIME.
--- NOTE | 2025-01-19 17:55 | NUR ---
administered scheduled meds and turned the heat up in room. assessed temp as he keeps reporting that he is cold. 97.9.
--- NOTE | 2025-01-19 20:00 | NUR ---
handoff report received from day shift rn. patient awake in bed watching TV. patient family member Sabina visiting with patient. patient provided with ice water. no further needs at this time.
--- NOTE | 2025-01-19 20:45 | NUR ---
patient incontient of stool. patient laila care complete. new linen and gown placed. patient remains on 2L NC, tolerating well. vital signs stable. no further needs at this time. call light in reach.
--- NOTE | 2025-01-19 22:03 | NUR ---
RT IN ROOM, CPAP PLACED ON PATIENT. NO FURTHER NEEDS AT THIS TIME. CALL LIGHT IN REACH.
--- NOTE | 2025-01-19 23:49 | NUR ---
PATIENT RESTING IN BED WITH EYES CLOSED, RR 22. PATIENT REMAINS ON CPAP. NO ACUTE DISTRESS NOTED. PATIENT HAS CALL LIGHT IN REACH.
[2025-01-20] VITALS (13 sets, daily range): BP systolic 84–136; BP diastolic 53–79
--- NOTE | 2025-01-20 01:12 | NUR ---
PATIENT RESTING WITH EYES CLOSED. PATIENT CONTINUES TO WEAR CPAP AND TOLERATING WELL, SPO2 99%. NO SIGNS OF ACUTE DISTRESS NOTED. PATIENT HAS CALL LIGHT IN REACH.
--- NOTE | 2025-01-20 03:23 | NUR ---
patient resting in bed with eyes closed, RR 19. patient remains on CPAP, tolerating well. IVF infusing per emar, site WNL. patient vital signs stable. no needs at this time. call light in reach.
--- NOTE | 2025-01-20 04:55 | NUR ---
patient incontinent of stool. linen changed and new brief placed. patient off CPAP and placed on 2L NC, SPO2 95%. patient voids 625cc of urine. PRN pain medication administered per EMAR. patient right leg noted to get progressively more swollen throughout the night. right leg significantly more swollen than the left. BLE elevated on pillows. patient repositioned in bed. more ice water provided. no further needs at this time. call light in reach.
--- NOTE | 2025-01-20 04:57 | NUR ---
PATIENT LAYING IN BED. THIS PASSENGER TIRE INSPECTOR AND TWO RN CHANGED PATIENT BRIEF, PREFORMED JUAN LUIS CARE, AND EMPTIED PATIENT URINAL. PATIENTS CALL LIGHT IS WITHIN REACH AND NO FURTHER NEEDS AT THIS TIME.
[2025-01-20 05:42] LABS: BASOPHILS 0.4 % (0.2-1.2); EOSINOPHILS 2.5 % (0.8-7.0); LYMPHOCYTES 24.2 % (21.8-53.1); MCH 27.1 PG (25.7-32.2); MCHC 30.2 g/dL (32.3-36.5); MCV 89.8 fL (79.0-92.2); MONOCYTES 10.0 % (5.3-12.2); NEUTROPHILS 62.5 % (34.0-67.9); RBC 4.21 M/uL (4.63-6.08)
[2025-01-20 06:05] LABS: ALT (SGPT) 20.0 U/L (14-59); AST (SGOT) 29.0 U/L (15-37); GLOMERULAR FILTRATION RATE,EST 97.0 mL/min (>60); PROTEIN, TOTAL 5.8 g/dL (6.4-8.2); UREA NITROGEN 19.0 mg/dL (7-18)
--- NOTE | 2025-01-20 06:30 | NUR ---
PATIENT INCONTINENT OF LIQUID STOOL. JUAN LUIS CARE DONE, NEW LINEN AND BRIEF PLACED. PATIENT REPOSITONED IN BED. PATIENT LEGS ELEVATED. PATIENT STATES 7/10 BACK AND HIP PAIN, PRN PAIN MEDICATION GIVEN PER EMAR. PATIENT PLACED BACK ON CPAP, TOLERATING WELL. PATIENT HAS NO FURTHER NEEDS AT THIS TIME. CALL LIGHT IN REACH.
[2025-01-20] MEDS ORDERED: acetaZOLAMIDE 250 MG TAB PO ONE (07:45)
--- NOTE | 2025-01-20 08:30 | NUR ---
PT ASSISTED TO SIT UP FOR BREAKFAST, REFUSED TO TRY TO GET TO CHAIR. ASSISTED TO MOVE LEGS. RIGHT IS SIGNIFICANTLY MORE SWOLLEN TODAY THAN YESTERDAY. BS OBTAINED AND BREAKFAST PLACED ON TRAY. GIVEN MORE ICE WATER AND KETCHUP FOR MEAL.
[2025-01-20] MEDS ORDERED: LACTOBACILLUS RHAMNOSUS GG 1 EACH CAP PO SCH (09:25)
--- NOTE | 2025-01-20 09:26 | NUR ---
SPOKE WITH REGARDING FREQUENT LOOSE STOOLS. ORDERED PROBIOTICS. CALLED [facility] PT STATES THEY HAD BEEN GIVING HIM IMMODIUM. THEY COULD NOT FIND THE RECORDS BUT THE RN I SPOKE TO-MEKHI, STATED THAT WAS ACCURATE.
[2025-01-20] MEDS ORDERED: PSYLLIUM SEED 1 PKT PACKET PO SCH (09:32)
--- NOTE | 2025-01-20 09:37 | NUR ---
ALERT AND ORIENTED. STATES HE IS NOT FEELING WELL TODAY. CONTINUES TO PLAN TO DC TO [facility], IF ACCEPTED, FOR SNF.
[2025-01-20] MEDS ORDERED: LOPERAMIDE HCL 2 MG CAP PO ONE (09:45)
[2025-01-20] MEDS ORDERED: FUROSEMIDE 40 MG/4 ML VIAL IV ONE (09:45)
--- NOTE | 2025-01-20 10:48 | NUR ---
ECHO DONE, REMOVED PILLOWS FROM BEHIND PT BACK PER REQUEST. ASSISTED WITH URINAL, 650 OUT. ADMINISTERED SCHEDULED MEDS. WILL CALL REGARDING SUGAR FREE METAMUCIL. HOLDING LOPERIMIDE DUE TO NO DIAHRREA YET THIS MORNING.
--- NOTE | 2025-01-20 11:16 | NUR ---
SWITCHED METAMUCIL TO TABS WITH LESS SUGAR.
[2025-01-20] MEDS ORDERED: PSYLLIUM HUSK 1 EA CAP PO SCH (11:30)
--- NOTE | 2025-01-20 13:14 | NUR ---
THIS RN HELP PRIMARY RN MOVE PATIENT FROM 126 TO 115. PT IN [facility] BED, CALL LIGHT WITHIN REACH, PROVIDED REMOTE TO TV. FRESH ICE WATER PROVIDED, PT STATES HE IS ALITTLE COLD IN THE NEW ROOM, WARM BLANKET PROVIDED. PT DENIES ANY OTHER NEEDS AT THIS TIME.
--- NOTE | 2025-01-20 13:37 | NUR ---
PT NOT AVAILABLE FOR VISIT. PROVIDED PRAYER.
--- NOTE | 2025-01-20 13:42 | NUR ---
PT MOVED TO [place] [id number] VIA BED. ALL PT BELONGINGS MOVED.
--- NOTE | 2025-01-20 14:23 | NUR ---
REPORT RECEIVED FROM MARCELO Rodriguez RN. PT TRANSFERRED FROM CCU TO ROM 115. CALL LIGHT WITHIN REACH.
--- NOTE | 2025-01-20 14:33 | NUR ---
UPDATES FAXED TO [facility].
--- NOTE | 2025-01-20 17:20 | NUR ---
PATIENT GIVEN 5UNITS OF SQ INSULIN TO LEFT ARM. NO OTHER NEEDS AT THIS TIME.
--- NOTE | 2025-01-20 18:27 | NUR ---
PT RESTING IN BED WITH EYES CLOSED, BIPAP ON. PT EASY TO AROUSE. STATES HE WANTS TO NAP FOR A FEW MINUTES AND THEN EAT DINNER. CALL LIGHT WITHIN REACH.
--- NOTE | 2025-01-20 18:46 | NUR ---
PATIENT NEEDED ASSISTANCE WITH URINAL. HE FINISHED HIS BREATHING TREATMENT AND IS NOW LAYING UP IN BED EATING HIS DINNER. I&O'S CHARTED. CALL LIGHT WITHIN REACH AND NO FURTHER NEEDS AT THIS TIME.
--- NOTE | 2025-01-20 19:15 | NUR ---
REPORT RECEIVED FROM CODIE PETTIT. BOARD UPDATED. pt ASSISTED OFF THE BED CARLISLE BY RICO SCHAFFER. pt DENIES ANY OTHER NEEDS AT THIS TIME. CALL LIGHT WITHIN REACH.
--- NOTE | 2025-01-20 20:20 | NUR ---
ASSESSMENT AND VITAL SIGNS DONE. NEW BRIEF PLACED ON pt. BG CHECKED WITH RESULTS OF 215. SS INSULIN ADMINISTERED. WARM BLAKKET PROVIDED. ICE WATER REFRESHED. pt TITRATED DOWN TO 0.5LNC. THIS RN CALL MD GARCIA TO VERIFY THAT pt WAS TO REMAIN SL. VERIFIED THIS AND STATED HE WANT TO TRY AND TITRATE THE pt DOWN TO RM AIR LONG THE pt REMAINS ABOVE 92%. pt PLACED ON CPOX PER ORDER. pt DENIES ANY OTHER NEEDS AT THIS TIME. CALL LIGHT WITHIN REACH.
--- NOTE | 2025-01-20 21:30 | NUR ---
pt C/O 11/04 PAIN. PRN PAIN MEDS ADMINISTERED. pt DENIES ANY OTHER NEEDS AT THIS TIME. CALL LIGHT WITHIN REACH. CPOX ON.
--- NOTE | 2025-01-20 21:43 | NUR ---
CALL LIGHT ANSWERED. ASSISTED pt TO VOID IN URINAL. JUAN LUIS CARE PROVIDED. NEW INCONTINENCE PAD PLACED. 1L OXYGEN BY OXYMASK IN PLACE. CALL LIGHT IN REACH. pt DENIES ADDITIONAL NEEDS.
--- NOTE | 2025-01-20 23:46 | NUR ---
pt RESTING IN THE BED WITH EYES CLOSED. BIPAP ON pt. NO OTHER NEEDS AT THIS TIME. CALL LIGHT WITHIN REACH.
[2025-01-21] VITALS (9 sets, daily range): BP systolic 134–160; BP diastolic 63–73
--- NOTE | 2025-01-21 01:12 | NUR ---
pt RESTING IN THE BED WITH EYES CLOSED. RR EVEN AND UNLABORED. CALL LIGHT WITHIN REACH.
--- NOTE | 2025-01-21 03:14 | NUR ---
pt RESTING IN THE BED WITH EYES CLOSED. RR EVEN AND UNLABORED. CALL LIGHT WITHIN REACH.
[2025-01-21 05:26] LABS: BASOPHILS 0.8 % (0.2-1.2); EOSINOPHILS 3.9 % (0.8-7.0); LYMPHOCYTES 27.1 % (21.8-53.1); MCH 27.6 PG (25.7-32.2); MCHC 30.1 g/dL (32.3-36.5); MCV 91.6 fL (79.0-92.2); MONOCYTES 8.8 % (5.3-12.2); NEUTROPHILS 59.1 % (34.0-67.9); RBC 4.31 M/uL (4.63-6.08)
[2025-01-21 05:42] LABS: ALT (SGPT) 19.0 U/L (14-59); AST (SGOT) 21.0 U/L (15-37); GLOMERULAR FILTRATION RATE,EST 96.0 mL/min (>60); PROTEIN, TOTAL 6.1 g/dL (6.4-8.2); UREA NITROGEN 16.0 mg/dL (7-18)
--- NOTE | 2025-01-21 06:36 | NUR ---
pt ATTEMPTED TO USE THE BED CARLISLE. pt HAD NO SUCCESS. pt RESPOSITIONED IN THE BED WITH PILLOW UNDER RIGHT HIP AND UNDER HIS KNEES. pt USED URINAL. WATER REFRESHED. pt DENIES ANY OTHER NEEDS AT THIS TIME. CALL LIGHT WITHIN REACH.
--- NOTE | 2025-01-21 07:25 | NUR ---
PT AWAKE IN BED WATCHING TV. COFFEE GIVEN PT REQUESTED. NO OTHER REQUESTS AT THIS TIME. CALL LIGHT WITHIN REACH. PT STATES PAIN HAS DECREASED TO 2/10 AND IS TOLERABLE AT THIS TIME.
--- NOTE | 2025-01-21 08:23 | NUR ---
PT SITTING UP IN BED EATING BREAKFAST. PT O2 SAT ON ROOM AIR 93%. CALL LIGHT WITHIN REACH.
[2025-01-21] MEDS ORDERED: FUROSEMIDE 40 MG/4 ML VIAL IV SCH (09:00)
--- NOTE | 2025-01-21 09:10 | NUR ---
Spoke with Luisalena and his sister, Angelic. Pt now plans on return to [facility] as soon as they have a bed open. He believes they are willing to make him a reduced cost when his 10 days are up. His sister is questioning this. I attempted to call, but needed to leave a message. I asked if they are giving a this pt a reduced rate when his last 10 Medicare days are up. Sister bernard with brother when he states he can return home. She reminds him several family members told him not to leave [facility] as he was not ready. She asks "why did you end up back at the hospital" and pt admits he was stuck on the toilet over 14 hours and could not get up. We discussed Independent Living and Assisted Livings. Pt is willing to pay to go to an [facility]. He would like to try [facility]. We also discussed [facility], pt is not able walk or transfer at this time. He over their level of care as they do not provide care giving service and are and independent living. Pt declines a Patient Choice List. He is aware of the facilities in our area. He does not like [facility] and he does not like [facility]. I let him know we can get [facility] from [facility] and other facilities. He is interested in [facility]. I will send his chart to [facility]. Pt and sister discussing if he should go directly to a facility or to [facility] for 10 days. I did remind them, he will be able to have PT/OT for 10 days daily. Home Health is 2-3 times per week. He would like his chart sent to [facility]. I texted Summer and they do have beds. I let her know I will send his chart.
--- NOTE | 2025-01-21 09:16 | NUR ---
DR GARCIA IN TO SEE PT AND DISCUSS POC
--- NOTE | 2025-01-21 10:45 | NUR ---
Recieved a call from [facility]. She spoke with the business office. They were discussing a payment plan with Kai, not a reduced rate. The rate per day will be $555 once his 10 days are up. I will let him know. She wants to know pts discharge plan. I let her know I am attempting to discuss options for Assisted Living Facility and send his chart.
--- NOTE | 2025-01-21 10:50 | NUR ---
In room to do CHF education. Pt awake resting in bed. Education completed on CHF. Pt verbalized understanding. No questions at this time. I asked if he has some family members that would like me to visit with on his CHF care. He says no at this time. He does have family that helps him at home. I did leave my education material, [place] [employer], Get with the Guidlines, Heart Failure. Pt is aware that I will return to room to answer any questions.
--- NOTE | 2025-01-21 12:33 | NUR ---
pt laying in bed waching tv. pt just finished lunch. no requests at this time. call light within reach.
--- NOTE | 2025-01-21 15:01 | NUR ---
Spoke with Marisela from [facility]. She will see and evaluate this pt tomorrow at 9:30. Plan to take this pt in 10 days after SNF. She is requesting pt current wt. I will ask the staff for a new weight. I also updated, he has a mechanical wc. She states this is allowed at their facilities,
--- NOTE | 2025-01-21 15:18 | NUR ---
PT SITTING IN CHAIR WITH LEGS ELEVATED WATCHING TV. CALL LIGHT WITHIN REACH.
--- NOTE | 2025-01-21 16:16 | NUR ---
PATIENT WAS TRANSFER TO THE CHAIR TO THE BED WITH THE ASHER BY THIS KARIME AND KARIME BURDICK . PATIENT HAD A BED BATH, PERICARE AND A SHAMPOO WERE DONE. PATIENTS GOWN WAS CHANGE AND BRIEF. PATIENTS CALL LIGHT IS WITHIN REACH AND NO FURTHER NEEDS AT THIS TIME.
--- NOTE | 2025-01-21 17:54 | NUR ---
PATIENT LAYING IN BED. VITAL SIGNS AND I&OS WERE DONE. PATIENTS CALL LIGHT IS WITHIN REACH AND NO FURTHER NEEDS AT THIS TIME.
--- NOTE | 2025-01-21 18:35 | NUR ---
PT RESTING IN BED WATCHING TV. PAIN MED GIVEN FOR GENERALIZED PAIN 09/04 ORDERED. NO OTHER REQUESTS AT THIS TIME. CALL LIGHT WITHIN REACH.
--- NOTE | 2025-01-21 19:15 | NUR ---
REPORT RECEIVED FROM CODIE PETTIT. pt RESTING IN THE BED. CPOX ON. NEW CPOX STICKER PLACED ON FINGER. pt DENIES ANY OTHER NEEDS AT THIS TIME. CALL LIGHT WITHIN REACH.
--- NOTE | 2025-01-21 20:29 | NUR ---
Pt used call light, this RN went to room. Pt stated "I need to pee, you will have to place it and hold it until Gage done". Urinal at L bedside. This RN tried to show Pt how to do it himself and starteed getting angry, raised tone of voice and screaming "You dont understand, I cannot do it, I cant hold it, I cant see myself". This RN explained to pt that is our job to teach them be self relian and how to use urinal. started getting more belligerent "I dont like you, get me a charge person, I need help and you're not helping me". pt instructed that I was the charge nurse and he asked "Get me someone else, one who can hold the urinal for me, you dont want to change the bed and I cant move to change the bed" not receptive. will notify primary RN and supervisor hide house.Pt has long arms and is able to reach and hold objects. abd is large but not protruding or distended receptive
--- NOTE | 2025-01-21 20:45 | NUR ---
ASSESSMENT AND VITAL SIGNS DONE. pt USED THE URINAL. THIS RN OFFERED THE PURE WICK pt DENIED STATING SINCE HE IS LEAVING TOMORROW IT DOESN'T MAKE ANY SENSE FOR HIM TO USE IT NOW. THIS RN EDUCATED pt ON WHY WE WNT HIM TO BE ABLE TO USE THE URINAL ON HIS OWN BUT I WILL HELP HIM NOW. IV ASSESSED, IV LEAKING AND DC'D. FLOAT RN CALLED TO ROOM AND STARTED A NEW IV IN LEFT FORE ARM. BG CHECKED WITH RESULTS OF 218. SS INSULIN ADMINISTERED. pt DENIES ANY OTHER NEEDS AT THIS TIME. CALL LIGHT WITHIN REACH.
--- NOTE | 2025-01-21 23:20 | NUR ---
pt RESTING IN THE BED WITH BIPAP ON pt SATTING AT 98%. NO OTHER NEEDS AT THIS TIME. CALL LIGHT WITHIN REACH. RR EVEN AND UNLABORED.
[2025-01-22] VITALS (9 sets, daily range): BP systolic 148–159; BP diastolic 72–84
--- NOTE | 2025-01-22 01:45 | NUR ---
pt RESTING IN THE BED WITH EYES CLOSED. RR EVEN AND UNLABORED. BIPAP ON pt SATTING AT 97%. NO OTHER NEEDS AT THIS TIME. CALL LIGHT WITHIN REACH.
--- NOTE | 2025-01-22 03:28 | NUR ---
pt RESTING IN THE BED WITH EYES CLOSED AND BIPAP ON. RT TURNED BIPAP DOWN TO RA pt SATTING AT 94%. NO OTHER NEEDS AT THIS TIME. CALL LIGHT LIGHT WITHIN REACH.
--- NOTE | 2025-01-22 04:32 | NUR ---
pt CALLED TO USE THE URINAL. pt ASSISTED WITH THE URINAL. pt REPOSITIONED WITH PILLOWS UNDER BOTH HIPS. pt C/O 11/04 PAIN. PRN PAIN MEDS ADMINISTERED. pt DENIES ANY OTHER NEEDS AT THIS TIME. CALL LIGHT WITHIN REACH. WATER REFRESHED.
[2025-01-22 05:23] LABS: BASOPHILS 1.1 % (0.2-1.2); EOSINOPHILS 3.9 % (0.8-7.0); LYMPHOCYTES 25.6 % (21.8-53.1); MCH 26.8 PG (25.7-32.2); MCHC 30.6 g/dL (32.3-36.5); MCV 87.6 fL (79.0-92.2); MONOCYTES 8.9 % (5.3-12.2); NEUTROPHILS 60.1 % (34.0-67.9); RBC 4.36 M/uL (4.63-6.08)
[2025-01-22 05:42] LABS: ALT (SGPT) 22.0 U/L (14-59); AST (SGOT) 19.0 U/L (15-37); GLOMERULAR FILTRATION RATE,EST 102.0 mL/min (>60); PROTEIN, TOTAL 6.2 g/dL (6.4-8.2); UREA NITROGEN 15.0 mg/dL (7-18)
--- NOTE | 2025-01-22 06:12 | NUR ---
IN RM TO DO pt VITAL SIGNS. pt WANTED TO BE PUT ON THE BIPAP AGAIN. pt ON RA. pt DENIES ANY OTHER NEEDS ANY OTHER NEEDS AT THIS TIME. CALL LIGHT WITHIN REACH.
--- NOTE | 2025-01-22 07:10 | NUR ---
MORNING ASSESSMENT COMPLETE. PT IS AWAKE IN BED, REQUESTING A CUP OF COFFEE. NO OTHER NEEDS AT THIS TIME. CALL LIGHT IN REACH.
--- NOTE | 2025-01-22 08:30 | NUR ---
Marisela from [facility] in to visit this pt. for placement following his 10 days at [place].
[2025-01-22] MEDS ORDERED: EMPAGLIFLOZIN 10 MG TAB PO SCH (09:00)
[2025-01-22] MEDS ORDERED: INSULIN GLARGINE-YFGN 100 UNIT/ML ML SUB-Q SCH ×2 (09:00)
--- NOTE | 2025-01-22 10:00 | NUR ---
Spoke with [facility]. They are willing to accept this pt. He declines to go as he wants to have the room for free. He wants to discuss this with his sister.
--- NOTE | 2025-01-22 10:11 | NUR ---
PATIENT IN BED AT THIS TIME. SWITCHBOX ASSEMBLER ASSISTED PATIENT WITH URINAL, VOIDINGS CHARTED. CALL LIGHT WITHIN REACH, NO FRUTHER NEEDS AT THIS TIME.
--- NOTE | 2025-01-22 10:12 | NUR ---
MORNING ASSESSMENT COMPLETE. PT AWAKE IN BED, 7/10 R ANKLE/FOOT PAIN PRN PAIN MEDICATION ADMINISTERE (PER EMAR). WATER PROVIDED. CALL LIGHT IN REACH.
--- NOTE | 2025-01-22 12:47 | NUR ---
PATIENT IS IN HIS BED AT THIS TIME, PRESENTATION MANAGER ASSISTED PATIENT WITH USING THE URINAL. CLEANED HIM UP, CALL LIGHT WITH IN REACH AND NOTHING ELSE NEEDED AT THIS TIME.
--- NOTE | 2025-01-22 14:31 | NUR ---
PATIENT IN CHAIR AT THIS TIME. ENVIRONMENTAL PROTECTION ECONOMIST CHARTED VITALS AND I&O'S. CALL LIGHT WITHIN REACH, NO FURTHER NEEDS AT THIS TIME.
--- NOTE | 2025-01-22 14:34 | NUR ---
PATIENT IN CHAIR AT THIS TIME. THIS CULINARY MANAGER, CULINARY MANAGER RK, AND PT KAREN STERLINGED PATIENT TO CHAIR. THIS CULINARY MANAGER AND KARIME BECKMAN CHANGED PATIENTS LINENS AT THIS TIME. CALL LIGHT WITHIN REACH, NO FURTHER NEEDS.
--- NOTE | 2025-01-22 14:45 | NUR ---
PT IN RECLINER, AWAKE WATCHING TV. CALL LIGHT IN REACH.
--- NOTE | 2025-01-22 15:04 | NUR ---
PT IS IN RECLINER, CALL LIGHT IN REACH.
--- NOTE | 2025-01-22 15:18 | NUR ---
KARIME ROGER IN ROOM. PT ASKING TO GO BACK TO BED. KANA DISCUSSED WITH PT THE IMPORTANCE OF STAYING UP IN THE CHAIR. PT WILLING TO STAY IN CHAIR TILL DINNER. REPORTS NEEDING A PAIN MED.
--- NOTE | 2025-01-22 15:41 | NUR ---
PRN PAIN MEDICATION ADMINISTERED (PER EMAR) FOR 6/10 IN THE HIP AND BACK PAIN. NO FURTHER NEEDS. CALL LIGHT IN REACH.
--- NOTE | 2025-01-22 16:57 | NUR ---
Attempted to call the pts sister, Angelic. I am unable to reach. Pt will return to [place] tomorrow. I updated Stephany pt has a dc plan to [facility] if he wants. I texted Stephany asking for a time they would like this pt to arrive.
--- NOTE | 2025-01-22 17:30 | NUR ---
PT EATING DINNER IN RECLINER. CALL LIGHT IN REACH.
--- NOTE | 2025-01-22 18:32 | NUR ---
MOVED PT FROM RECLINER TO THE BED, VIA ASHER. KARIME ROGER, MAURICIO, WILVER AND THIS RN IN ROOM TO ASSIST. PT CLEANED NEW GOWN APPLIED. CALL LIGHT IN REACH.. DENIES NEEDS AT THIS TIME.
--- NOTE | 2025-01-22 18:34 | NUR ---
PATIENT IN BED AT THIS TIME. SHOW HOST CHARTED VITALS AND I&O'S. CALL LIGHT WITHIN REACH, NO FURTHER NEEDS AT THIS TIME.
--- NOTE | 2025-01-22 19:44 | NUR ---
RECEIVED REPORT. PT ALERT IN BED, NO NEEDS PRESENTLY. CALL LIGHT IN REACH
--- NOTE | 2025-01-22 20:45 | NUR ---
LIFE COACH OBTAINED VITALS AND I&O. ICE WATER REFILLED. PT STATES NO NEEDS AT THIS TIME. CALL LIGHT WITHIN REACH.
[2025-01-22] MEDS ORDERED: APIXABAN 5 MG TAB PO SCH (21:00)
--- NOTE | 2025-01-22 21:49 | NUR ---
ASSESSMENT, EVENIGN MEDS. GIVEN 5 UNITS INSULIN FOR BG OF 209. NO NEEDS PRESENTLY, CALL LIGHT INREACH, EJAP ON.
--- NOTE | 2025-01-22 23:22 | NUR ---
PT RESTING IN BED WITH EYES CLOSED, RISE AND FALL OF CHEST OBSERVED. CALL LIGHT INREACH
--- NOTE | 2025-01-23 00:24 | NUR ---
PT RESTING IN BED WITH EYES CLOSED, RISE AND FALL OF CHEST OBSERVED. CPAP MACHINE IN PLACE. CALL LGT IN REACH
--- NOTE | 2025-01-23 02:44 | NUR ---
PT RESTING IN BED WITH EYES CLOSED, RISE AND FALL OF CHEST NOTED, SPO2 98% WITH CPAP MACHINE. [facility]
--- NOTE | 2025-01-23 05:01 | NUR ---
PT RESTING IN BED WITH EYES CLOSED, RISE AND FALL OF CHEST OBSERVED.C ALL LIGHT IN REACH
[2025-01-23 05:27] VITALS: BP 156/78
[2025-01-23 05:28] VITALS: BP 156/78
[2025-01-23 05:29] LABS: BASOPHILS 0.6 % (0.2-1.2); EOSINOPHILS 3.8 % (0.8-7.0); LYMPHOCYTES 29.1 % (21.8-53.1); MCH 27.3 PG (25.7-32.2); MCHC 31.5 g/dL (32.3-36.5); MCV 86.7 fL (79.0-92.2); MONOCYTES 7.9 % (5.3-12.2); NEUTROPHILS 58.2 % (34.0-67.9); RBC 4.73 M/uL (4.63-6.08)
--- NOTE | 2025-01-23 05:32 | NUR ---
RESPONDED TO CALL LIGHT, ASSISTED PT WITH URINAL. CLEANED [place] AREA. TAKEN AM VITALS. NO OTHER NEEDS, CALL LIGHT IN REACH
[2025-01-23 05:53] LABS: ALT (SGPT) 16.0 U/L (14-59); AST (SGOT) 15.0 U/L (15-37); GLOMERULAR FILTRATION RATE,EST 103.0 mL/min (>60); PROTEIN, TOTAL 6.4 g/dL (6.4-8.2); UREA NITROGEN 13.0 mg/dL (7-18)
--- NOTE | 2025-01-23 06:48 | NUR ---
PROVIDED COFFEE AND ICE WATER ON REQUEST. NO OTHER NEEDS, CALL LIGHT ELLIS
--- NOTE | 2025-01-23 07:18 | NUR ---
RECIEVED MORNING REPORT. PT IS AWAKE IN BED, WATCHING IV. CARD ROOM MANAGER IN ROOM. CALL LIGHT IN REACH
--- NOTE | 2025-01-23 08:25 | NUR ---
MORNING ASSESSMENT COMPLETE. PT IS AWAKE IN BED, DENIES PAIN. UPDATED PT ON POC. CALL LIGHT IN REACH
--- NOTE | 2025-01-23 08:26 | NUR ---
Notified by [facility] at the [facility]. Their industrial tractor driver will pickup a wc at 0900 from [facility] and and drop it off. They will return by 1030 to transport this pt.
--- NOTE | 2025-01-23 09:00 | NUR ---
Spoke with Kai and updated [facility] now has a room available. Transport has been set for 10:30. He denies any needs. Paperwork for [facility] is on his bedside table. He states he is waiting for his niece to review. No further needs.
[2025-01-23] MEDS ORDERED: TORSEMIDE20 MG PO (09:35)
[2025-01-23] MEDS ORDERED: JARDIANCE10 MG PO ×2 (09:36→10:05)
--- NOTE | 2025-01-23 09:43 | NUR ---
PATIENT IN BED AT THIS TIME. THIS POKER DEALER ASSISTED PATIENT WITH URINAL. POKER DEALER CHARTED VOIDINGS ON BOARD IN ROOM. CALL LIGHT WITHIN REACH, NO FURTHER NEEDS AT THIS TIME.
[2025-01-23 09:59] VITALS: BP 156/76
--- NOTE | 2025-01-23 10:31 | NUR ---
CALLED [facility] TO GIVE REPORT. NOTIFED BY WB THAT THERE WAS NO ORDER. JANINE MORALES NOTIFIED.
--- NOTE | 2025-01-23 11:22 | NUR ---
CALLED [facility] TO GIVE REPORT. WENT TO [employer]
--- NOTE | 2025-01-23 11:59 | NUR ---
CALLED [facility], GAVE REPORT TO WILVER GARCIA. ALL QUESTIONS ANSWERED.
== END 2025-01-23 10:10 | DRG 557 ==
LOC: ED 11:57 → MS 15:25 → CCU 15:25 → MS 01-20 13:00
PROVIDERS: Emergency Medicine; ADMIT Family Medicine; ATTEND Family Medicine
DX: M62.82 Rhabdomyolysis (principal); I50.33 Acute on chronic diastolic (congestive) heart failure; J96.01 Acute respiratory failure with hypoxia; Z68.41 Body mass index [BMI] 40.0-44.9, adult; I11.0 Hypertensive heart disease with heart failure; S70.11XA Contusion of right thigh, initial encounter; W18.30XA Fall on same level, unspecified, initial encounter; L89.151 Pressure ulcer of sacral region, stage 1; E83.42 Hypomagnesemia; E11.9 Type 2 diabetes mellitus without complications; I44.0 Atrioventricular block, first degree; I95.9 Hypotension, unspecified; R19.7 Diarrhea, unspecified; Z86.711 Personal history of pulmonary embolism; E66.01 Morbid (severe) obesity due to excess calories; Z87.81 Personal history of (healed) traumatic fracture; Z86.73 Personal history of transient ischemic attack (TIA), and cerebral infarction without residual deficits; Z98.890 Other specified postprocedural states; Z79.02 Long term (current) use of antithrombotics/antiplatelets; Z79.4 Long term (current) use of insulin; Z79.84 Long term (current) use of oral hypoglycemic drugs; Z79.01 Long term (current) use of anticoagulants; Z79.899 Other long term (current) drug therapy
CPT/HCPCS: 36415; 36600; 51798; 71045; 80053; 81001; 82550; 82803; 83735; 83880; 84100; 84484; 85025; 93005; 93010; 93306; 93971; 94660; 94762; 94799; 97110; 97163; 97166; 97530; 97535; 99285-25; A9270; J1815; J1938; J3475; J7030; J7121

== ENCOUNTER 2025-02-16 07:38 | Emergency (ER) | payer MEDICARE, OTHER ==
[~2025-02-16] VITALS: Ht 185.4 cm; Wt 160.0 kg
[~2025-02-16 07:38] MED LIST changes: +JARDIANCE10 MG PO; +METHOCARBAMOL500 MG PO; +OXYCODONE HCL5 M3 PO; +POTASSIUM CHLO10 ME1 PO
--- OUTSIDE RECORDS SUMMARY | 2025-02-16 07:44 | XMS ---
PreManage Notification: FANNIE COMBS Security Public Relations Supervisor Events No recent Security Events currently on file CRITERIA MET - [facility] - 2 Visits in 30 Days CARE PROVIDERS THOMAS BIRCH Nurse Practitioner: Family [facility] PHONE: [phone] CORINNE SUN Nurse Practitioner: Adult Health [facility] PHONE: [phone] OLRENA GUTIERREZ Physician Financial Services Consultant [facility] PHONE: [phone] ISELA RAMOS Nurse Practitioner: Adult Health Current [place] PHONE: [phone] MD ОЛЬГА Nurse Practitioner: Gerontology Current PHONE: Unknown IDALIA ALBERTO Internal Medicine Current PHONE: Unknown Sally has no Care Guidelines for this patient. Iesha VISIT COUNT (12 MO.) 3 [facility] TOTAL 4 NOTE: Visits indicate total known visits. ED/C VISIT TRACKING (12 MO.) 02/16/2025 07:38 [facility] TYPE: Emergency COMPLAINT: - SHORTNESS OF BREATH 01/18/2025 11:57 [facility] TYPE: Emergency COMPLAINT: - WEAKNESS 09/28/2024 22:05 [facility] TYPE: Emergency COMPLAINT: - FALL 02/28/2024 16:20 [facility] TYPE: Emergency COMPLAINT: - Fall_bilat LE pain - PAIN IN LEFT LEG - PAIN IN RIGHT LEG DIAGNOSES: 0. Pain in right leg 1. Unspecified fracture of lower end of left femur, initial encounter for closed fracture 4. Unspecified fracture of lower end of right femur, initial encounter for closed fracture 5. Striking against other object with subsequent fall, initial encounter 6. Health care provider office as the place of occurrence of the external cause 7. Lymphedema, not elsewhere classified 8. Morbid (severe) obesity due to excess calories 9. senior living (current) use of anticoagulants INPATIENT VISIT TRACKING (12 MO.) 01/18/2025 15:25 [facility] TYPE: Medical Surgical COMPLAINT: - RHABDOMYOLYSIS DIAGNOSES: - Acute diastolic (congestive) heart failure - Acute on chronic diastolic (congestive) heart failure - Acute respiratory failure with hypoxia - Atrioventricular block, first degree - Body mass index [BMI] 40.0-44.9, adult - Contusion of right thigh, initial encounter - Diarrhea, unspecified - Fall on same level, unspecified, initial encounter - Hypertensive heart disease with heart failure - Hypomagnesemia - Hypotension, unspecified - senior living (current) use of anticoagulants - buttermaker helper (current) use of antithrombotics/antiplatelets - buttermaker helper (current) use of insulin - senior living (current) use of oral hypoglycemic drugs - Morbid (severe) obesity due to excess calories - Other intermediate (current) drug therapy - Other specified postprocedural states - Personal history of (healed) traumatic fracture - Personal history of pulmonary embolism - Personal history of transient ischemic attack (TIA), and cerebral infarction without residual deficits - Pressure ulcer of sacral region, stage 1 - Rhabdomyolysis - Type 2 diabetes mellitus without complications 09/29/2024 22:26 [facility] TYPE: Inpatient DIAGNOSES: - Displaced bicondylar fracture of right tibia, initial encounter for closed fracture - Encounter for preprocedural cardiovascular examination - Injury, unspecified, initial encounter - Obstructive sleep apnea (adult) (pediatric) - Other fracture of left femur, initial encounter for closed fracture - Other fracture of right femur, initial encounter for closed fracture - Unspecified fall, initial encounter - B tibia plateau fx/ fall - B, Medic 5 - Leg Injury 09/29/2024 02:48 [facility] TYPE: Medical Surgical COMPLAINT: - BILATERAL TIBIAL PLATEAU FRACTURES B/L PREVIOUS DIAGNOSES: - Atherosclerotic heart disease of [place] coronary artery without angina pectoris - Body mass index [BMI] 40.0-44.9, adult - Displaced comminuted fracture of shaft of right tibia, initial encounter for closed fracture - Essential (primary) hypertension - Hypokalemia - Hypomagnesemia - buttermaker helper (current) use of anticoagulants - senior living (current) use of antithrombotics/antiplatelets - buttermaker helper (current) use of insulin - senior living (current) use of oral hypoglycemic drugs - Lymphedema, not elsewhere classified - Obesity, unspecified - Other fall on same level, initial encounter - Other fracture of upper and lower end of left fibula, initial encounter for closed fracture - Other fracture of upper and lower end of right fibula, initial encounter for closed fracture - Other fracture of upper end of left tibia, initial encounter for closed fracture - Personal history of nicotine dependence - Personal history of pulmonary embolism - Problems related to living alone - Pure hypercholesterolemia, unspecified - Type 2 diabetes mellitus without complications - Unspecified fracture of shaft of left femur, subsequent encounter for closed fracture with nonunion - Unspecified fracture of shaft of right femur, subsequent encounter for closed fracture with nonunion - Unspecified place in unspecified non-institutional (private) residence as the place of occurrence of the external cause 02/29/2024 02:13 [facility] TYPE: Inpatient DIAGNOSES: - Abnormal result of other cardiovascular function study - Displaced comminuted fracture of shaft of right femur, initial encounter for closed fracture - Hypertensive heart disease without heart failure - Injury, unspecified, initial encounter - Morbid (severe) obesity due to excess calories - Other fracture of right femur, initial encounter for closed fracture - Shock, unspecified - Shortness of breath - Solitary pulmonary nodule - Unspecified fracture of left femur, initial encounter for closed fracture - B/L femur fx s/p GLF - Fall [email or web address]
[2025-02-16 07:57] LABS: BASOPHILS 0.6 % (0.2-1.2); EOSINOPHILS 1.6 % (0.8-7.0); LYMPHOCYTES 20.5 % (21.8-53.1); MCH 27.2 PG (25.7-32.2); MCHC 29.2 g/dL (32.3-36.5); MCV 93.1 fL (79.0-92.2); MONOCYTES 7.2 % (5.3-12.2); NEUTROPHILS 69.6 % (34.0-67.9); RBC 5.23 M/uL (4.63-6.08)
[2025-02-16 08:20] LABS: AST (SGOT) 18 U/L (15-37); GLOMERULAR FILTRATION RATE,EST 108 mL/min (>60); PROTEIN, TOTAL 6.6 g/dL (6.4-8.2); UREA NITROGEN 14 mg/dL (7-18)
[2025-02-16 08:24] LABS: ALT (SGPT) <6 U/L (14-59)
[2025-02-16] MEDS ORDERED: FUROSEMIDE 100 MG/10 ML VIAL IV ONE (08:30)
[2025-02-16] MEDS ORDERED: POTASSIUM CHLORIDE 10 MEQ TABCR PO ONE (08:45)
[2025-02-16] MEDS ORDERED: ONDANSETRON ODT8 MG PO (09:55)
[2025-02-16] MEDS ORDERED: POTASSIUM CHLO20 ME2 PO (09:59)
[2025-02-16 13:17] LABS: BASE EXCESS, BLOOD GAS 9.7 mmol/L (-2-2); HCO3, BLOOD GAS 42.4 mmol/L (22-26); O2 SATURATION, BLOOD GAS 97.5 % (95.0-100.0); OXYGEN RECEIVED, BLOOD GAS 10L; PCO2, BLOOD GAS 97.5 mmHg (35-45); PH, BLOOD GAS 7.24 (7.35-7.45); PO2, BLOOD GAS 97 mmHg (80-100); TOTAL CO2, BLOOD GAS 45.5
[2025-02-16 15:03] LABS: BASE EXCESS, BLOOD GAS 10.6 mmol/L (-2-2); HCO3, BLOOD GAS 41.2 mmol/L (22-26); O2 SATURATION, BLOOD GAS 84.7 % (95.0-100.0); OXYGEN RECEIVED, BLOOD GAS 30%; PCO2, BLOOD GAS 78.7 mmHg (35-45); PH, BLOOD GAS 7.32 (7.35-7.45); PO2, BLOOD GAS 50 mmHg (80-100); TOTAL CO2, BLOOD GAS 43.7
[2025-02-16 16:37] VITALS: BP 123/81
== END 2025-02-16 18:05 | disposition short-term general hospital (02) ==
LOC: ED 07:38
PROVIDERS: Emergency Medicine
DX: I50.30 Unspecified diastolic (congestive) heart failure (principal); R06.89 Other abnormalities of breathing; E11.9 Type 2 diabetes mellitus without complications; Z79.4 Long term (current) use of insulin; Z79.01 Long term (current) use of anticoagulants
CPT/HCPCS: 36415; 36600; 71045; 71260; 80053; 82803; 83880; 84484; 85025; 94799; 96374; 96375; 99285-25; A9270; J1938; J2405; Q9967

== ENCOUNTER 2025-04-07 07:17 | Inpatient (IN) | payer MEDICARE, OTHER ==
[~2025-04-07] VITALS: Ht 185.4 cm; Wt 173.5 kg
--- OUTSIDE RECORDS SUMMARY | ~2025-04-07 | XMS | Continuity of Care Document ---
Demographics + + + | Address | [address] | | | [place] [address] | + + + | Preferred Language | Unknown | + + + | Marital Status | Never | + + + | Sikh Affiliation | Unknown | + + + | Race | White | + + + | Ethnic Group | Not or | + + + Author + + + | Author | [facility] | + + + | Organization | [facility] | + + + | Address | [address] | | | [place] [address] | + + + | Phone | | + + + Care Team Providers + + + + | Care Computer Engineering Technologist Name | Role | Phone | + + + + Unavailable | Unavailable | + + + + Unavailable | Unavailable | + + + + Allergies No information. Encounters No information. Functional Status No information. Immunizations + + + + | date | description | facility | + + + + | (no date) | No vaccine administered | [facility] | | | | [facility] | + + + + Medications + + + + | date | description | facility | + + + + | (no date) | oxycodone hydrochloride 5 | [facility] | | | MG Oral Tablet | [facility] | + + + + | (no date) | apixaban 5 MG Oral Tablet | [facility] | | | [Eliquis] | [facility] | + + + + | 2025-01-23 00:00 | empagliflozin 10 MG Oral | [facility] | | | Tablet [Jardiance] | [facility] | + + + + | (no date) | 3 ML insulin degludec 200 | [facility] | | | UNT/ML Pen Injector | [facility] | | | [Tresiba] | | + + + + | (no date) | lisinopril 40 MG Oral | [facility] | | | Tablet | [facility] | + + + + | (no date) | methocarbamol 500 MG Oral | [facility] | | | Tablet | [facility] | + + + + | 2025-02-16 00:00 | potassium chloride 20 MEQ | [facility] | | | Extended Release Oral | [facility] | | | Tablet | | + + + + | (no date) | torsemide 20 MG Oral | [facility] | | | Tablet | [facility] | + + + + | 2025-01-23 00:00 | torsemide 20 MG Oral | [facility] | | | Tablet | [facility] | + + + + | (no date) | aspirin 325 MG Oral Tablet | [facility] | | | [Irena Aspirin] | [facility] | + + + + | (no date) | amlodipine 10 MG Oral | [facility] | | | Tablet | [facility] | + + + + | 2025-02-16 00:00 | ondansetron 8 MG | [facility] | | | Disintegrating Oral Tablet | [facility] | + + + + | (no date) | insulin aspart, human 100 | [facility] | | | UNT/ML Injectable Solution | [facility] | | | [NovoLo | | + + + + | (no date) | potassium chloride 10 MEQ | [facility] | | | Extended Release Oral | [facility] | | | Tablet | | + + + + | (no date) | metformin hydrochloride | [facility] | | | 1000 MG / sitagliptin | [facility] | | | phosphate 50 M | | + + + + | (no date) | 24 HR metoprolol succinate | [facility] | | | 100 MG Extended Release | [facility] | | | Oral Tabl | | + + + + | (no date) | hydralazine hydrochloride | [facility] | | | 50 MG Oral Tablet | [facility] | + + + + Problems + + + + | date | description | facility | + + + + | 2025-01-18 00:00 | Physical debility | [facility] | | | | [facility] | + + + + | 2025-01-18 00:00 | Morbid obesity | [facility] | | | | [facility] | + + + + | 2025-01-18 00:00 | Rhabdomyolysis | [facility] | | | | [facility] | + + + + | 2025-01-18 00:00 | Chronic acquired | [facility] | | | lymphedema | [facility] | + + + + | 2025-01-23 00:00 | Heart failure | [facility] | | | | [facility] | + + + + | 2025-02-16 00:00 | Hypercapnia | [facility] | | | | [facility] | + + + + | 2025-02-16 00:00 | CHF exacerbation | [facility] | | | | [facility] | + + + + Procedures [...]
[~2025-04-07 07:17] MED LIST changes: +ONDANSETRON ODT8 MG PO; +POTASSIUM CHLO20 ME2 PO
[2025-04-07] MEDS ORDERED: IBLOOD GLUCOSE TEST STRIP 1 EA TEST XX ONE (07:45)
[2025-04-07 07:49] LABS: BASOPHILS 0.4 % (0.2-1.2); EOSINOPHILS 3.1 % (0.8-7.0); LYMPHOCYTES 16.9 % (21.8-53.1); MCH 27.8 PG (25.7-32.2); MCHC 31.5 g/dL (32.3-36.5); MCV 88.2 fL (79.0-92.2); MONOCYTES 8.0 % (5.3-12.2); NEUTROPHILS 71.2 % (34.0-67.9); RBC 5.61 M/uL (4.63-6.08)
[2025-04-07] MEDS ORDERED: FUROSEMIDE 100 MG/10 ML VIAL IV ONE (08:15)
[2025-04-07 08:18] LABS: ALT (SGPT) 12.0 U/L (14-59); AST (SGOT) 14.0 U/L (15-37); GLOMERULAR FILTRATION RATE,EST 99.0 mL/min (>60); PROTEIN, TOTAL 7.6 g/dL (6.4-8.2); UREA NITROGEN 16.0 mg/dL (7-18)
[2025-04-07 08:40] LABS: CORONAVIRUS COVID-19 AG NEGATIVE (NEGATIVE)
--- OUTSIDE RECORDS SUMMARY | 2025-04-07 09:53 | XMS | Continuity of Care Document ---
Demographics + + + | Address | [address] | | | [place] [address] | + + + | Preferred Language | Unknown | + + + | Marital Status | Never | + + + | Roman Catholic Affiliation | Unknown | + + + | Race | White | + + + | Ethnic Group | Not or | + + + Author + + + | Author | [facility] | + + + | Organization | [facility] | + + + | Address | [address] | | | [place] [address] | + + + | Phone | | + + + Care Team Providers + + + + | Care Annealing Oven Operator Name | Role | Phone | + + + + Unavailable | Unavailable | + + + + Unavailable | Unavailable | + + + + Allergies No information. Encounters No information. Functional Status No information. Immunizations + + + + | date | description | facility | + + + + | (no date) | No vaccine administered | [facility] | | | | [facility] | + + + + Medications + + + + | date | description | facility | + + + + | (no date) | oxycodone hydrochloride 5 | [facility] | | | MG Oral Tablet | [facility] | + + + + | (no date) | apixaban 5 MG Oral Tablet | [facility] | | | [Eliquis] | [facility] | + + + + | 2025-01-23 00:00 | empagliflozin 10 MG Oral | [facility] | | | Tablet [Jardiance] | [facility] | + + + + | (no date) | 3 ML insulin degludec 200 | [facility] | | | UNT/ML Pen Injector | [facility] | | | [Tresiba] | | + + + + | (no date) | lisinopril 40 MG Oral | [facility] | | | Tablet | [facility] | + + + + | (no date) | methocarbamol 500 MG Oral | [facility] | | | Tablet | [facility] | + + + + | 2025-02-16 00:00 | potassium chloride 20 MEQ | [facility] | | | Extended Release Oral | [facility] | | | Tablet | | + + + + | (no date) | torsemide 20 MG Oral | [facility] | | | Tablet | [facility] | + + + + | 2025-01-23 00:00 | torsemide 20 MG Oral | [facility] | | | Tablet | [facility] | + + + + | (no date) | aspirin 325 MG Oral Tablet | [facility] | | | [Irena Aspirin] | [facility] | + + + + | (no date) | amlodipine 10 MG Oral | [facility] [place] [facility] | | | Tablet | [facility] | + + + + | 2025-02-16 00:00 | ondansetron 8 MG | [facility] | | | Disintegrating Oral Tablet | [facility] | + + + + | (no date) | insulin aspart, human 100 | [facility] | | | UNT/ML Injectable Solution | [facility] | | | [NovoLo | | + + + + | (no date) | potassium chloride 10 MEQ | [facility] | | | Extended Release Oral | [facility] | | | Tablet | | + + + + | (no date) | metformin hydrochloride | [facility] | | | 1000 MG / sitagliptin | [facility] | | | phosphate 50 M | | + + + + | (no date) | 24 HR metoprolol succinate | [facility] | | | 100 MG Extended Release | [facility] | | | Oral Tabl | | + + + + | (no date) | hydralazine hydrochloride | [facility] | | | 50 MG Oral Tablet | [facility] | + + + + Problems + + + + | date | description | facility | + + + + | 2025-01-18 00:00 | Physical debility | [facility] | | | | [facility] | + + + + | 2025-01-18 00:00 | Morbid obesity | [facility] | | | | [facility] | + + + + | 2025-01-18 00:00 | Rhabdomyolysis | [facility] | | | | [facility] | + + + + | 2025-01-18 00:00 | Chronic acquired | [facility] | | | lymphedema | [facility] | + + + + | 2025-01-23 00:00 | Heart failure | [facility] | | | | [facility] | + + + + | 2025-02-16 00:00 | Hypercapnia | [facility] | | | | [facility] | + + + + | 2025-02-16 00:00 | CHF exacerbation | [facility] | | | | [facility] | + + + + Procedures No information. Results/Labs +--------+--------+ +---------+--------+---------+ | test | date | facility | value | unit | notes | +--------+--------+ +---------+--------+---------+ + + | Result panel 1 | + + + + + +-------+ + + | Protein | 2025-01-18 | | 100 | (missing) | (missing) | | urine test | 12:40 | [facility] | | | | | strip | [facility] | | | | + + + +-------+ + + + + | Result panel 2 | + + + + + +-------+ + + | | 2025-01-18 | | 1.0 | (missing) | (missing) | | Urobilinogen | 12:40 | [facility] | | | | | | | [facility] | | | | | [Mass/volume | | [facility] | | | | | ] in Urine | | Hospital | | | | | by Test | | | | | | | strip | | | | | | + + + +-------+ + + + + | Result panel 3 | + + + + + + + + + | Urine | 2025-01-18 | | NEGATIVE | (missing) | (missing) | | nitrite | 12:40 | [facility] | | | | | detection by | [facility] | | | | | test strip | | [facility] | [facility] | [facility] | | | | + + + + + + + + + | Result panel 4 | + + + + + + + + + | Urine | 2025-01-18 | | NEGATIVE | (missing) | (missing) | | leukocyte | 12:40 | [facility] | | | | | esterase | [facility] | detection by | | [facility] | | | | | dipstick | | Hospital | | | | + + + + + + + + + | Result panel 5 | + + + + + +-------+ + + | Automated | 2025-01-18 | | 0-1 | (missing) | (missing) | | urine | 12:40 | [facility] | | | | | sediment | | - [facility] | | | | | erythrocyte | | [facility] | | | | | count by | | Hospital | | | | | microscopy | | | | | | | (number/high | | | | | | | power | | | | | | | field) | | | | | | + + + +-------+ + + + + | Result panel 6 | + + + + + +-------+ + + | Automated | 2025-01-18 | | 4-6 | (missing) | (missing) | | urine | 12:40 | [facility] | | | | | sediment | | - [facility] | | | | | leukocyte | | [facility] | | | | | count by | | Hospital | | | | | microscopy | | | | | | | (number/high | | | | | | | power | | | | | | | field) | | | | | | + + + +-------+ + + + + | Result panel 7 | + + + + + + + + + | Automated | 2025-01-18 | | SQUAMOUS 2+ | (missing) | (missing) | | urine | 12:40 | [facility] | | | | | sediment | | - [facility] | | | | | epithelial | | [facility] | | | | | cell count | | Hospital | | | | | by | | | | | | | microscopy | | | | | | | (number/high | | | | | | | power | | | | | | | field) | | | | | | + + + + + + + + + | Result panel 8 | + + + + + + + + + | Crystal | 2025-01-18 | | NONE SEEN | (missing) | (missing) | | typing in | 12:40 | [facility] | | | | | urine | | [facility] | | | | | sediment by | | [facility] | | | | | light | | Hospital | | | | | microscopy | | | | | | + + + + + + + + + | Result panel 9 | + + + + + +--------+ + + | Automated | 2025-01-18 | | RARE | (missing) | (missing) | | urine | 12:40 | [facility] | | | | | sediment | | - [facility] | | | | | bacteria | | [facility] | | | | | count by | | Hospital | | | | | microscopy | | | | | | | (number/high | | | | | | | power | | | | | | | field) | | | | | | + + + +--------+ + + + + | Result panel 10 | + + + + + + + + + | Automated | 2025-01-18 | | HYALINE 2+ | (missing) | (missing) | | casts count | 12:40 | [facility] | | | | | in urine | | - [facility] | | | | | sediment by | | [facility] | | | | | microscopy | | Hospital | | | | | low power | | | | | | | field | | | | | | | (number/area | | | | | | | ) | | | | | | + + + + + + + + + | Result panel 11 | + + + + + + + + + | Color of | 2025-01-18 | | YELLOW | (missing) | (missing) | | Urine by | 12:40 | [facility] | | | | | Auto | | - [facility] | | | | | | | [facility] | | | | | | [facility] | | | | + + + + + + + + + | Result panel 12 | + + + + + +------+ + + | Reflexive | 2025-01-18 | | No | (missing) | (missing) | | urine | 12:40 | [facility] | | | | | bacterial | | - [facility] | | [facility] | culture | | [facility] | | | | | | [facility] | | | | + + + +------+ + + + + | Result panel 13 | + + + + + +--------+ + + | Urinalysis | 2025-01-18 | | VOID | (missing) | (missing) | | specimen | 12:40 | [facility] | | | | | collection | [facility] | | | | | method | | [facility] | | | | | | [facility] | | | | + + + +--------+ + + + + | Result panel 14 | + + + + + +---------+ + + | Character | 2025-01-18 | | CLEAR | (missing) | (missing) | | of Urine | 12:40 | [facility] | | | | | | | [facility] | | | | | | [facility] | | | | | | [facility] | | | | + + + +---------+ + + + + | Result panel 15 | + + + + + + + + + | Glucose | 2025-01-18 | | NEGATIVE | (missing) | (missing) | | [Presence] | 12:40 | [facility] | | | | | in Urine by | | - [facility] | | | | | Test strip | | [facility] | | | | | | [facility] | | | | + + + + + + + + + | Result panel 16 | + + + + + + + + + | Urine total | 2025-01-18 | | POSITIVE | (missing) | (missing) | | bilirubin | 12:40 | [facility] | | | | | detection by | | - [facility] | | | | | test strip | | [facility] | | | | | | [facility] | | | | + + + + + + + + + | Result panel 17 | + + + + + +---------+ + + | Urine | 2025-01-18 | | TRACE | (missing) | (missing) | | ketones | 12:40 | [facility] | | | | | detection by | | - [facility] | | | | | test strip | | [facility] | | | | | | [facility] | | | | + + + +---------+ + + + + | Result panel 18 | + + + + + +---------+ + + | Specific | 2025-01-18 | | 1.025 | (missing) | (missing) | | gravity ur | 12:40 | [facility] | | | | | dipstick | | - [facility] | | | | | | | [facility] | | | | | | [facility] | | | | + + + +---------+ + + + + | Result panel 19 | + + + + + + + + + | Urine | 2025-01-18 | | NEGATIVE | (missing) | (missing) | | hemoglobin | 12:40 | [facility] | | | | | detection by | | - [facility] | | | | | test strip | | [facility] | | | | | | [facility] | | | | + + + + + + + + + | Result panel 20 | + + + + + +-------+ + + | Urine pH | 2025-01-18 | | 5.5 | (missing) | (missing) | | measurement | 12:40 | [facility] | | | | | by test | | - [facility] | | | | | strip | | [facility] | | | | | | [facility] | | | | + + + +-------+ + + + + | Result panel 21 | + + + + + +-------+ + + | Serum or | 2025-01-19 | | 5.0 | (missing) | (missing) | | plasma | 05:08 | [facility] | | | | | phosphate | | - [facility] | | | | | measurement | | [facility] | | | | | (mass/volume | | Hospital | | | | | ) | | | | | | + + + +-------+ + + + + | Result panel 22 | + + + + + +-------+ + + | Serum or | 2025-01-19 | | 578 | (missing) | (missing) | | plasma | 12:05 | [facility] | | | | | creatine | | - [facility] | | | | | kinase | | [facility] | | | | | measurement | | Hospital | | | | | (enzymatic | | | | | | | activity/vol | | | | | | | ume) | | | | | | + + + +-------+ + + + + | Result panel 23 | + + + + + +-------+ + + | Serum or | 2025-01-21 | | 2.0 | (missing) | (missing) | | plasma | 05:20 | [facility] | | | | | magnesium | | - [facility] | | | | | measurement | | [facility] | | | | | (mass/volume | | Hospital | | | | | ) | | | | | | + + + +-------+ + + + + | Result panel 24 | + + + + + +-------+ + + | Whole blood | 2025-01-23 | | 143 | (missing) | (missing) | | glucose | 07:41 | [facility] | | | | | measurement | | - [facility] | | | | | using | | [facility] | | | | | handheld | | Hospital | | | | | analyzer | | | | | | | (mass/volume | | | | | | | ) | | | | | | + + + +-------+ + + + + | Result panel 25 | + + + + + +---------+ + + | Blood | 2025-02-16 | | 10.31 | (missing) | (missing) | | leukocytes | 07:50 | [facility] | | | | | automated | | - [facility] | | | | | count | | [facility] | | | | | (number/volu | | Hospital | | | | | me) | | | | | | + + + +---------+ + + + + | Result panel 26 | + + + + + +--------+ + + | Blood | 2025-02-16 | | 5.23 | (missing) | (missing) | | erythrocytes | 07:50 | [facility] | | | | | automated | | - [facility] | | | | | count | | [facility] | | | | | (number/volu | | Hospital | | | | | me) | | | | | | + + + +--------+ + + + + | Result panel 27 | + + + + + +--------+ + + | Blood | 2025-02-16 | | 14.2 | (missing) | (missing) | | hemoglobin | 07:50 | [facility] | | | | | measurement | | - [facility] | | | | | (mass/volume | | [facility] | | | | | ) | | [facility] | | | | + + + +--------+ + + + + | Result panel 28 | + + + + + +--------+ + + | Automated | 2025-02-16 | | 48.7 | (missing) | (missing) | | blood | 07:50 | [facility] | | | | | hematocrit | | - [facility] | | | | | | [facility] | | | | | | [facility] | | | | + + + +--------+ + + + + | Result panel 29 | + + + + + +--------+ + + | Automated | 2025-02-16 | | 93.1 | (missing) | (missing) | | erythrocyte | 07:50 | [facility] | | | | | mean | | - [facility] | | | | | corpuscular | | [facility] | | | | | volume | | Hospital | | | | + + + +--------+ + + + + | Result panel 30 | + + + + + +--------+ + + | Automated | 2025-02-16 | | 27.2 | (missing) | (missing) | | erythrocyte | 07:50 | [facility] | | | | | mean | | - [facility] | | | | | corpuscular | | [facility] | | | | | hemoglobin | | Hospital | | | | | (mass per | | | | | | | erythrocyte) | | | | | | | | | | | | | + + + +--------+ + + + + | Result panel 31 | + + + + + +--------+ + + | Automated | 2025-02-16 | | 29.2 | (missing) | (missing) | | erythrocyte | 07:50 | [facility] | | | | | mean | | - [facility] | | | | | corpuscular | | [facility] | | | | | hemoglobin | | Hospital | | | | | concentratio | | | | | | | n | | | | | | | measurement | | | | | | | (mass/volume | | | | | | | ) | | | | | | + + + +--------+ + + + + | Result panel 32 | + + + + + +-------+ + + | Automated | 2025-02-16 | | 170 | (missing) | (missing) | | blood | 07:50 | [facility] | | | | | platelet | | - [facility] | | | | | count | | [facility] | | | | | (count/volum | | Hospital | | | | | e) | | | | | | + + + +-------+ + + + + | Result panel 33 | + + + + + +--------+ + + | Automated | 2025-02-16 | | 69.6 | (missing) | (missing) | | blood | 07:50 | [facility] | | | | | neutrophil | | - [facility] | | | | | count as | | [facility] | | | | | percentage | | Hospital | | | | | of total | | | | | | | leukocytes | | | | | | + + + +--------+ + + + + | Result panel 34 | + + + + + +--------+ + + | Automated | 2025-02-16 | | 20.5 | (missing) | (missing) | | blood | 07:50 | [facility] | | | | | lymphocyte | | - [facility] | | | | | count as | | [facility] | | | | | percentage | | Hospital | | | | | ot total | | | | | | | leukocytes | | | | | | + + + +--------+ + + + + | Result panel 35 | + + + + + +-------+ + + | Automated | 2025-02-16 | | 7.2 | (missing) | (missing) | | blood | 07:50 | [facility] | | | | | monocyte | | - [facility] | | | | | count as | | [facility] | | | | | percentage | | Hospital | | | | | of total | | | | | | | leukocytes | | | | | | + + + +-------+ + + + + | Result panel 36 | + + + + + +-------+ + + | Automated | 2025-02-16 | | 1.6 | (missing) | (missing) | | blood | 07:50 | [facility] | | | | | eosinophil | | - [facility] | | | | | count as | | [facility] | | | | | percentage | | Hospital | | | | | of total | | | | | | | leukocytes | | | | | | + + + +-------+ + + + + | Result panel 37 | + + + + + +-------+ + + | Automated | 2025-02-16 | | 0.6 | (missing) | (missing) | | blood | 07:50 | [facility] | | | | | basophil | | - [facility] | | | | | count as | | [facility] | | | | | percentage | | Hospital | | | | | of total | | | | | | | leukocytes | | | | | | + + + +-------+ + + + + | Result panel 38 | + + + + + +------+ + + | Serum or | 2025-02-16 | | 78 | (missing) | (missing) | | plasma | 07:50 | [facility] | | | | | glucose | | - [facility] | | | | | measurement | | [facility] | | | | | (mass/volume | | Hospital | | | | | ) | | | | | | + + + +------+ + + + + | Result panel 39 | + + + + + +------+ + + | Serum or | 2025-02-16 | | 14 | (missing) | (missing) | | plasma urea | 07:50 | [facility] | | | | | nitrogen | | - [facility] | | | | | measurement | | [facility] | | | | | (mass/volume | | Hospital | | | | | ) | | | | | | + + + +------+ + + + + | Result panel 40 | + + + + + +--------+ + + | Serum or | 2025-02-16 | | 0.51 | (missing) | (missing) | | plasma | 07:50 | [facility] | | | | | creatinine | | - [facility] | | | | | measurement | | [facility] | | | | | (mass/volume | | Hospital | | | | | ) | | | | | | + + + +--------+ + + + + | Result panel 41 | + + + + + +-------+ + + | Glomerular | 2025-02-16 | | 108 | (missing) | (missing) | | filtration | 07:50 | [facility] | | | | | rate/1.73 sq | | - [facility] | | | | | M.predicted | | [facility] | | | | | [Volume | | Hospital | | | | | Rate/Area] | | | | | | | inSerum, | | | | | | | Plasma or | | | | | | | Blood by | | | | | | | Creatinine-b | | | | | | | ased formula | | | | | | | (CKD-EPI | | | | | | | 2020) | | | | | | + + + +-------+ + + + + | Result panel 42 | + + + + + +---------+ + + | Serum or | 2025-02-16 | | 27.45 | (missing) | (missing) | | plasma urea | 07:50 | [facility] | | | | | nitrogen/cre | | - [facility] | | | | | atinine mass | | [facility] | | | | | ratio | | Hospital | | | | + + + +---------+ + + + + | Result panel 43 | + + + + + +-------+ + + | Serum or | 2025-02-16 | | 140 | (missing) | (missing) | | plasma | 07:50 | [facility] | | | | | sodium | | - [facility] | | | | | measurement | | [facility] | | | | | (moles/volum | | Hospital | | | | | e) | | | | | | + + + +-------+ + + + + | Result panel 44 | + + + + + +-------+ + + | Serum or | 2025-02-16 | | 3.8 | (missing) | (missing) | | plasma | 07:50 | [facility] | | | | | potassium | | - [facility] | | | | | measurement | | [facility] | | | | | (moles/volum | | Hospital | | | | | e) | | | | | | + + + +-------+ + + + + | Result panel 45 | + + + + + +-------+ + + | Serum or | 2025-02-16 | | 100 | (missing) | (missing) | | plasma | 07:50 | [facility] | | | | | chloride | | - [facility] | | | | | measurement | | [facility] | | | | | (moles/volum | | Hospital | | | | | e) | | | | | | + + + +-------+ + + + + | Result panel 46 | + + + + + +------+ + + | Serum or | 2025-02-16 | | 39 | (missing) | (missing) | | plasma | 07:50 | [facility] | | | | | carbon | | - [facility] | | | | | dioxide, | | [facility] | | | | | total | | Hospital | | | | | measurement | | | | | | | (moles/volum | | | | | | | e) | | | | | | + + + +------+ + + + + | Result panel 47 | + + + + + +-------+ + + | Serum or | 2025-02-16 | | 4.8 | (missing) | (missing) | | plasma anion | 07:50 | [facility] | | | | | gap 4 | | - [facility] | | | | | | [facility] | | | | | | | [facility] | | | | + + + +-------+ + + + + | Result panel 48 | + + + + + +-------+ + + | Serum or | 2025-02-16 | | 8.0 | (missing) | (missing) | | plasma | 07:50 | [facility] | | | | | calcium | | - [facility] | | | | | measurement | | [facility] | | | | | (mass/volume | | Hospital | | | | | ) | | | | | | + + + +-------+ + + + + | Result panel 49 | + + + + + +-------+ + + | Serum or | 2025-02-16 | | 6.6 | (missing) | (missing) | | plasma | 07:50 | [facility] | | | | | protein | | - [facility] | | | | | measurement | | [facility] | | | | | (mass/volume | | Hospital | | | | | ) | | | | | | + + + +-------+ + + + + | Result panel 50 | + + + + + +-------+ + + | Serum or | 2025-02-16 | | 2.7 | (missing) | (missing) | | plasma | 07:50 | [facility] | | | | | albumin | | - [facility] | | | | | measurement | | [facility] | | | | | (mass/volume | | Hospital | | | | | ) | | | | | | + + + +-------+ + + + + | Result panel 51 | + + + + + +-------+ + + | Serum | 2025-02-16 | | 3.9 | (missing) | (missing) | | globulin | 07:50 | [facility] | | | | | measurement | | - [facility] | | | | | (mass/volume | | [facility] | | | | | ) | | [facility] | | | | + + + +-------+ + + + + | Result panel 52 | + + + + + +--------+ + + | Serum or | 2025-02-16 | | 0.69 | (missing) | (missing) | | plasma | 07:50 | [facility] | | | | | albumin/glob | | - [facility] | | | | | ulin mass | | [facility] | | | | | ratio | | Hospital | | | | + + + +--------+ + + + + | Result panel 53 | + + + + + +-------+ + + | Serum or | 2025-02-16 | | 0.7 | (missing) | (missing) | | plasma total | 07:50 | [facility] | | | | | bilirubin | | - [facility] | | | | | measurement | | [facility] | | | | | (mass/volume | | Hospital | | | | | ) | | | | | | + + + +-------+ + + + + | Result panel 54 | + + + + + +------+ + + | Serum or | 2025-02-16 | | 18 | (missing) | (missing) | | plasma | 07:50 | [facility] | | | | | aspartate | | - [facility] | | | | | aminotransfe | | [facility] | | | | | rase | | Hospital | | | | | measurement | | | | | | | (enzymatic | | | | | | | activity/vol | | | | | | | ume) | | | | | | + + + +------+ + + + + | Result panel 55 | + + + + + +------+ + + | Serum or | 2025-02-16 | | <6 | (missing) | (missing) | | plasma | 07:50 | [facility] | | | | | alanine | | - [facility] | | | | | aminotransfe | | [facility] | | | | | rase | | Hospital | | | | | measurement | | | | | | | (enzymatic | | | | | | | activity/vol | | | | | | | ume) | | | | | | + + + +------+ + + + + | Result panel 56 | + + + + + +------+ + + | Serum or | 2025-02-16 | | 76 | (missing) | (missing) | | plasma | 07:50 | [facility] | | | | | alkaline | | - [facility] | | | | | phosphatase | | [facility] | | | | | measurement | | Hospital | | | | | (enzymatic | | | | | | | activity/vol | | | | | | | ume) | | | | | | + + + +------+ + + + + | Result panel 57 | + + + + + +--------+ + + | Serum or | 2025-02-16 | | 10.8 | (missing) | (missing) | | plasma | 07:50 | [facility] | | | | | cardiac | | - [facility] | | | | | troponin I | | [facility] | | | | | measurement | | Hospital | | | | | by high | | | | | | | senstivity | | | | | | | method | | | | | | | (mass/volume | | | | | | | ) | | | | | | + + + +--------+ + + + + | Result panel 58 | + + + + + +--------+ + + | Blood pH | 2025-02-16 | | 7.32 | (missing) | (missing) | | | 15:00 | [facility] | | | | | | [facility] | | | | | | | [facility] | | | | | | | [facility] | | | | + + + +--------+ + + + + | Result panel 59 | + + + + + +--------+ + + | Blood | 2025-02-16 | | 78.7 | (missing) | (missing) | | partial | 15:00 | [facility] | | | | | pressure of | | - [facility] | | | | | carbon | | [facility] | | | | | dioxide | | Hospital | | | | | measurement | | | | | | + + + +--------+ + + + + | Result panel 60 | + + + + + +------+ + + | Blood | 2025-02-16 | | 50 | (missing) | (missing) | | partial | 15:00 | [facility] | | | | | pressure of | | - [facility] | | | | | oxygen | | [facility] | | | | | measurement | | Hospital | | | | + + + +------+ + + + + | Result panel 61 | + + + + + +--------+ + + | Blood | 2025-02-16 | | 41.2 | (missing) | (missing) | | bicarbonate | 15:00 | [facility] | | | | | measurement | | - [facility] | | | | | (moles/volum | | [facility] | | | | | e) | | Hospital | | | | + + + +--------+ + + + + | Result panel 62 | + + + + + +--------+ + + | Blood base | 2025-02-16 | | 10.6 | (missing) | (missing) | | excess by | 15:00 | [facility] | | | | | calculation | | - [facility] | | | | | | | [facility] | | | | | | | [facility] | | | | + + + +--------+ + + + + | Result panel 63 | + + + + + +--------+ + + | Whole blood | 2025-02-16 | | 84.7 | (missing) | (missing) | | oxygen | 15:00 | [facility] | | | | | saturation | [facility] measurement | | [facility] | | | | + + + +--------+ + + + + | Result panel 64 | + + + + + +-------+ + + | Oxygen | 2025-02-16 | | 30% | (missing) | (missing) | | therapy | 15:00 | [facility] | | | | | [Minimum | [facility] - [facility] Data Set] | | [facility] | | | | + + + +-------+ + + + + | Result panel 65 | + + + + + +--------+ + + | Blood | 2025-02-16 | | 43.7 | (missing) | (missing) | | carbon | 15:00 | [facility] | | | | | dioxide, | | - [facility] total | | [facility] | | | | | measurement | | [facility] | | | | | (moles/volum | | | | | | | e) | | | | | | + + + +--------+ + + Social History + + + + | date | description | facility | + + + + | (no date) | Never smoker | [facility] | | [facility] | + + + + Vital Signs No information."
[2025-04-08] VITALS (8 sets, daily range): BP systolic 108–154; BP diastolic 58–91
[2025-04-08] MEDS ORDERED: HYDROCODON-ACE1 EA10 PO (03:45)
[2025-04-08] MEDS ORDERED: POTASSIUM CHLORIDE 10 MEQ TABCR PO ONE (08:45)
[2025-04-08] MEDS ORDERED: FUROSEMIDE 100 MG/10 ML VIAL IV ONE (08:45)
[2025-04-08 08:48] LABS: BASOPHILS 0.4 % (0.2-1.2); EOSINOPHILS 1.6 % (0.8-7.0); LYMPHOCYTES 15.0 % (21.8-53.1); MCH 28.0 PG (25.7-32.2); MCHC 29.8 g/dL (32.3-36.5); MCV 93.8 fL (79.0-92.2); MONOCYTES 7.2 % (5.3-12.2); NEUTROPHILS 75.2 % (34.0-67.9); RBC 5.33 M/uL (4.63-6.08)
[2025-04-08 09:16] LABS: ALT (SGPT) 13.0 U/L (14-59); AST (SGOT) 15.0 U/L (15-37); GLOMERULAR FILTRATION RATE,EST 93.0 mL/min (>60); PROTEIN, TOTAL 6.9 g/dL (6.4-8.2); UREA NITROGEN 17.0 mg/dL (7-18)
[2025-04-08] MEDS ORDERED: ACETAMINOPHEN 325 MG TAB PO PRN (13:45)
[2025-04-08] MEDS ORDERED: DEXTROSE 5% 1,000 ML IV PRN (13:45)
[2025-04-08] MEDS ORDERED: GLUCAGON,HUMAN RECOMBINANT 1 MG/ML VIAL SUB-Q PRN (13:45)
[2025-04-08] MEDS ORDERED: METOPROLOL TARTRATE 50 MG TAB PO ONE (13:45)
[2025-04-08] MEDS ORDERED: DEXTROSE 50% 50 ML SYR IV PRN ×2 (13:45)
[2025-04-08] MEDS ORDERED: IBLOOD GLUCOSE TEST STRIP 1 EA TEST XX PRN (13:45)
--- NOTE | 2025-04-08 14:36 | NUR ---
BARIATRIC BED ORDERED AND CANCELLED PT WAS ON ONE IN ER. INTAKE MAN AWARE.
--- NOTE | 2025-04-08 16:00 | NUR ---
PT HAD 30 SEC RUN OF VTACH 152/71 PT CLOSED EYES WHILE WATCHING TV, DENIES ANY C/O. DR GARCIA CALLED, MG, BMP ORDERED STAT. RT CED HERE. PT NO DISTRESS. CALL LIGHT IN REACH.
--- NOTE | 2025-04-08 16:21 | NUR ---
Spoke with Shaheed over the last two days attempting to find placement. Pt is no longer able to live alone. He has spent the last 6 months in a SNF and attempted to go home once and returned within two days in December. He discharged to home this week and returned to the ER within hours as he was unable to walk and was stuck on his toilet.Pt has spent over 100 days in a SNF and has exhausted all of his Medicare days. [facility] evaluated Buster yesterday, but due to his inability to walk and requiring heavy care declined him today. I was able to contact [facility] and [facility]. [facility] will be here tomorrow to evaluate this pt. They were able to do a video visit with this pt and show him their facility in [place]. Pt will need a bariatric bed and a sit to stand. These have been ordered by Dr. Campos in the ER and authed from Medicare. They are on standby at [facility] in [place] until pt is placed. Hopefully pt will be accepted by [facility] tomorrow and can be placed on Sunday with transport by EMS. Pt is agreeable to placement and is now aware he cannot go home at this time.
[2025-04-08 16:52] LABS: GLOMERULAR FILTRATION RATE,EST 79.0 mL/min (>60); UREA NITROGEN 21.0 mg/dL (7-18)
[2025-04-08] MEDS ORDERED: INSULIN LISPRO 100 UNIT/ML ML SUB-Q SCH (17:00)
[2025-04-08] MEDS ORDERED: IBLOOD GLUCOSE TEST STRIP 1 EA TEST VI SCH (17:00)
--- NOTE | 2025-04-08 17:15 | NUR ---
call to dr lara for pt update and to confirm new orders for pt. pt eating well and sister in to visit. call light in reach
--- NOTE | 2025-04-08 17:50 | EKG ---
[facility] [address] [place] [address] Signed Normal sinus rhythm Normal ECG When compared with ECG of 18-JAN-2025 12:48, No significant change was found Confirmed by Hbuer Garcia DO ([id number]) on 04/08/2025 5:50:02 PM Electronically Signed By: HUBER GARCIA DO 04/08/25 175 PATIENT NAME: GARRETFANNIEDaniel WHITE Electrocardiogram DATE OF : 51 PHYSICIAN: HUBER GARCIA DO REPORT #: [id number] REPORT IS CONFIDENTIAL AND NOT TO BE RELEASED WITHOUT AUTHORIZATION
--- NOTE | 2025-04-08 18:18 | NUR ---
pt in no distress hr, 73 stable, resting with call light in hand watching tv.
--- NOTE | 2025-04-08 18:56 | NUR ---
DR GARCIA HERE WITH RN TO REVIEW PT CHART AND VITAL SIGNS. NO CHANGES.
--- NOTE | 2025-04-08 19:26 | NUR ---
PT CALLED, O2 SATS 88% ROOM AIR - READY TO TRY TO SLEEP REQUESTS CPAP. CALL TO [facility] TO PLACE PT ON BEDSIDE CPAP. RN HELPED PT AND SATS ARE 98% ON CPAP.
[2025-04-08] MEDS ORDERED: MELATONIN 3 MG TAB PO PRN (21:00)
[2025-04-08] MEDS ORDERED: APIXABAN 5 MG TAB PO SCH (21:00)
[2025-04-08] MEDS ORDERED: guaiFENesin 600 MG TABCR PO SCH (21:00)
[2025-04-08] MEDS ORDERED: INSULIN GLARGINE-YFGN 100 UNIT/ML ML SUB-Q SCH ×2 (21:00)
--- NOTE | 2025-04-08 23:51 | NUR ---
Pt alert and oriented x4, calm and resting in bed- pt was able to get on bed [place]aca with a x1 assist but was not able to have a bowel movement
[2025-04-09] VITALS (21 sets, daily range): BP systolic 118–189; BP diastolic 63–98
[2025-04-09 03:07] LABS: BASOPHILS 0.7 % (0.2-1.2); EOSINOPHILS 4.7 % (0.8-7.0); LYMPHOCYTES 28.9 % (21.8-53.1); MCH 27.7 PG (25.7-32.2); MCHC 30.8 g/dL (32.3-36.5); MCV 90.1 fL (79.0-92.2); MONOCYTES 8.2 % (5.3-12.2); NEUTROPHILS 56.9 % (34.0-67.9); RBC 4.73 M/uL (4.63-6.08)
[2025-04-09 03:29] LABS: ALT (SGPT) 10.0 U/L (14-59); AST (SGOT) 13.0 U/L (15-37); GLOMERULAR FILTRATION RATE,EST 104.0 mL/min (>60); PROTEIN, TOTAL 6.1 g/dL (6.4-8.2); UREA NITROGEN 19.0 mg/dL (7-18)
--- NOTE | 2025-04-09 06:19 | NUR ---
Pt alert and oriented x4- male purwick failed around 0400- patient was cleaned and new purwick was placed- still having frequent runs of PVC's
[2025-04-09] MEDS ORDERED: acetaZOLAMIDE 250 MG TAB PO ONE (08:30)
[2025-04-09] MEDS ORDERED: METOPROLOL SUCCINATE 100 MG TABCR PO SCH (09:00)
--- NOTE | 2025-04-09 09:40 | NUR ---
pt 3 person turned to use bedpan for loose lg bm. sent stool to lab per dr lara verbal order. pt skin wnl - pt on room air and varies from 86-95% - pt now has visitor in room.
--- NOTE | 2025-04-09 10:42 | NUR ---
UR CLINICAL REVIEW: 2MN VERSACONG, MEETS INPT FOR ACUTE HYPOXIC RESPIRATORY FAILURE DUE TO BRONCHITITS NEW NEED FOR OXYGEN, CT POSITIVE FOR BRONCHITIS, IV DIURESIS NEEDED, IV ANTIBIOTICS, WEAN OXYGEN MEDICARE INPT 04/08/2025 @ 1343 ORDER MATCHES REG PLAN TO DC TO ASSISTED LIVING FACILITY WHEN MEDICALLY READY DC REVIEW 04/10/2025
--- NOTE | 2025-04-09 11:17 | NUR ---
CALLED TO PT ROOM, PT VOID USING PUREWICK - EMPTIED CANISTER 1,000 ML URINE. PT HAS CALL LIGHT HR 77 DENIES NEEDS.
--- NOTE | 2025-04-09 11:56 | NUR ---
pt sat up hob for meal, 88% on room air. sob with exertion. call light in reach.
[2025-04-09] MEDS ORDERED: PHARMACY RENAL DOSE ADJUSTMENT 1 DOSE MISC PO SCH (12:00)
--- NOTE | 2025-04-09 12:19 | NUR ---
pt ate 100% of meal, 91% room air at rest after meal. call light in reach - request scds off - ble edema noted to legs.
--- NOTE | 2025-04-09 13:00 | NUR ---
Spoke with Shaheed. He is waiting to speak with Lot at 3 pm for possible admission. I was able to speak with his sister, Angelic and she will bring his Cpap amd clothing.
[2025-04-09] MEDS ORDERED: KAPSPARGO SPRI100 MG PO (13:17)
[2025-04-09] MEDS ORDERED: INSULIN LI100 UNIT/1 SUB-Q (13:19)
[2025-04-09] MEDS ORDERED: POTASSIUM CHLO10 ME2 PO (13:21)
[2025-04-09] MEDS ORDERED: SPIRONOLACTONE25 MG PO (13:22)
[2025-04-09] MEDS ORDERED: IPRAT-ALBUT 0.5-3 ML INH (13:23)
--- NOTE | 2025-04-09 13:38 | NUR ---
MED REC COMPLETE
[2025-04-09] MEDS ORDERED: AMLODIPINE BESYLATE 10 MG TAB PO SCH (13:47)
[2025-04-09] MEDS ORDERED: SPIRONOLACTONE 25 MG TAB PO SCH (13:48)
--- NOTE | 2025-04-09 15:10 | NUR ---
Spoke with [facility], and their nurse Reina. Pt was evaluted over an hour. They are willing to accept this pt tomorrow if the DME, bariatric bed and sit to stand can be delivered by 9 am tomorrow. Pt will need to discharge by EMS as he is essentially bedbound. I will contact [facility] in [place] to see if they can deliver the DME to [place]. I called and spoke with Tete she will contact the [employer] store and request they call me. Received RUTH orders from [facility]. They are also requesting a bariatric commode. I let them know this isn't something Medicare will cover. Pt states he will purchase his own from [employer].
--- NOTE | 2025-04-09 16:45 | NUR ---
Notified by Soham from [facility], they will deliver the bed and Sit to Stand by 9 am tomorrow. Shaheed updated and I called his sister to update. She states she was in [place] today and drove by the facility. My coworked called EMS and scheduled the transport for 12:30 tomorrow. They ask we call and confirm in the am.
--- NOTE | 2025-04-09 17:30 | NUR ---
DR Stratton HERE IN UNIT WITH THIS RN TO REVIEW MEDS, VITALS NO CHANGES AT THIS TIME. PT FINISHED MEAL 100% INTAKE, CALL LIGHT IN REACH - RESTING IN BED.
--- NOTE | 2025-04-09 18:06 | NUR ---
mask placed per pt prefrence vs cpap - he would like to sleep. 86% ra. 1l simple mask - pt resting in bed, call light in hand.
--- NOTE | 2025-04-09 19:40 | NUR ---
HANDOFF REPORT RECEIVED FROM DAY SHIFT RN. PATIENT AWAKE IN BED WATCHING TV. PATIENT ON ROOM AIR, SPO2 88-91%. PATIENT PROVIDED WITH WARM BLANKETS. NO FURTHER NEEDS AT THIS TIME. CALL LIGHT IN REACH.
--- NOTE | 2025-04-09 20:40 | NUR ---
PATIENT ASSESSMENT COMPLETE. PATIENT ON ROOM AIR AT THIS TIME, SPO2 90%. PATIENT SITTING UP AWAKE IN BED WATCHING TV. PATIENT DENIES FEELING SOB OR ANY PAIN AT THIS TIME. PATIENT ALERT AND ORIENTED. PATIENT UPDATED ON PLAN OF CARE FOR THE NIGHT. VITAL SIGNS STABLE. PATIENT HAS CALL LIGHT IN REACH.
--- NOTE | 2025-04-09 21:55 | NUR ---
REPORT GIVEN TO JOVI PETTIT. PATIENT MOVED TO ROOM 122 WITH THIS RN AND JOVI PETTIT VIA HOSPITAL BED. ALL PATIENT BELONGINGS TAKEN WITH PATIENT.
--- NOTE | 2025-04-09 22:00 | NUR ---
RECEIVED REPORT FROM WILVER BAKER. PT TRANSFERRED TO ROOM 122 VIA [facility] BED W/ ALL BELONGINGS. PT DENIES PAIN. ORIENTED X 4. LSC DIM. HRR. BTA. URINAL AT BEDSIDE. REPORTS LBM TODAY. RAC SL WNL. PT HAS 1+ EDEMA TO BLE. BLE MAN, WARM. PPP x 4. SKIN INTACT. PT DECLINED SCD'S AND C-PAP AT THIS TIME. HAS OXYMASK 2L IN HAND TO APPLY NEEDED. CALL LIGHT WITHIN REACH.
--- NOTE | 2025-04-09 23:45 | NUR ---
PT WANTING TO GET OOB TO BR. OFFERED PT USE OF BEDPAN, PT DECLINED. STATES HE HAS BEEIN GETTING OUT OF BED W/ OMAYRA PANIAGUA. CONFIRMED W/ CCU STAFF PT HAS NOT BEEN GETTING OOB. PT ATTEMPTED BM WITH BEDPAN, UNSUCCESSFUL.
[2025-04-10] VITALS (9 sets, daily range): BP systolic 134–152; BP diastolic 67–78
--- NOTE | 2025-04-10 01:17 | NUR ---
PT RESTING IN LYING POSIITON. VITALS DONE. CALL LIGHT IN REACH, NO NEEDS AT THIS TIME.
--- NOTE | 2025-04-10 01:55 | NUR ---
PT SLEEPING SOUNDLY, HOB ELEVATED. 2L O2 OXIMASK IN PLACE.
--- NOTE | 2025-04-10 05:01 | NUR ---
PT SLEEPING SOUNDLY, SNORING LIGHTLY. APPEARS COMFORTABLE.
[2025-04-10 05:25] LABS: BASOPHILS 0.9 % (0.2-1.2); EOSINOPHILS 5.6 % (0.8-7.0); LYMPHOCYTES 26.0 % (21.8-53.1); MCH 27.4 PG (25.7-32.2); MCHC 30.4 g/dL (32.3-36.5); MCV 90.3 fL (79.0-92.2); MONOCYTES 8.4 % (5.3-12.2); NEUTROPHILS 58.5 % (34.0-67.9); RBC 5.36 M/uL (4.63-6.08)
[2025-04-10 05:54] LABS: ALT (SGPT) 15.0 U/L (14-59); AST (SGOT) 12.0 U/L (15-37); GLOMERULAR FILTRATION RATE,EST 105.0 mL/min (>60); PROTEIN, TOTAL 7.0 g/dL (6.4-8.2); UREA NITROGEN 13.0 mg/dL (7-18)
--- NOTE | 2025-04-10 06:20 | NUR ---
PT AWAKE, SLEEPING BETWEEN CARE. ON RA, CPOX O2 SATS 91%. LS DIM T/O. DENIES ANY OTHER NEEDS AT THIS TIME.
[2025-04-10 07:08] LABS: ADENOVIRUS F 40/41 Not Detected (Not Detected); ASTROVIRUS Not Detected (Not Detected); C DIFFICILE TOXIN A/B Not Detected (Not Detected); CAMPYLOBACTER Not Detected (Not Detected); CRYPTOSPORIDIUM Not Detected (Not Detected); CYCLOSPORA CAYETANENSIS Not Detected (Not Detected); ENTAMOEBA HISTOLYTICA Not Detected (Not Detected); ENTEROAGGREGATIVE E COLI Not Detected (Not Detected); ENTEROPATHOGENIC E COLI Not Detected (Not Detected); ENTEROTOXIGENIC E COLI Not Detected (Not Detected); GIARDIA LAMBLIA Not Detected (Not Detected); NOROVIRUS GI/GII Not Detected (Not Detected); PLESIOMONAS SHIGELLOIDES Not Detected (Not Detected); ROTAVIRUS A Not Detected (Not Detected); SALMONELLA Not Detected (Not Detected); SAPOVIRUS Not Detected (Not Detected); SHIGA-TOXIN-PRODUCING E COLI Not Detected (Not Detected); SHIGELLA/ENTEROINVASIVE E COLI Not Detected (Not Detected); VIBRIO Not Detected (Not Detected); VIBRIO CHOLERAE Not Detected (Not Detected); YERSINIA ENTEROCOLITICA Not Detected (Not Detected)
--- NOTE | 2025-04-10 08:11 | NUR ---
CALLED [facility] TO SCHEDULE NONEMERGENT TRANSPORT AT 1230, UNKNOWN IF THEY CAN DO TRANSPORT THEY HAVE A TEAM OUT AT [facility] AT THE MOMENT
--- NOTE | 2025-04-10 08:54 | NUR ---
Patient awake, alert and oriented x3, no acute distress. Patient reports he slept well last night. Patient denies pain. Updated pt regarding planned transfer early this afternoon, pt reports understanding. No current needs, personal supplies and call light within reach.
[2025-04-10] MEDS ORDERED: LEVOFLOXACIN750 MG PO (09:20)
[2025-04-10] MEDS ORDERED: METOPROLOL SUC100 MG PO (09:20)
--- NOTE | 2025-04-10 09:43 | NUR ---
ORDERS FAXED TO [facility] AT [phone] AND TO [facility] AT [phone]. AWAITING CALL BACK FOR TRANSPORTATION.
--- NOTE | 2025-04-10 10:51 | NUR ---
PATIENT IN BED AT THIS TIME. THIS CLUB LOUNGE ATTENDANT AND CLUB LOUNGE ATTENDANT RK ASSISTED PATIENT ON TOO BED CARLISLE AND OFF OF BED CARLISLE. THIS CLUB LOUNGE ATTENDANT PROVIDED PATIENT WITH PERICARE. CALL LIGHT WITHIN REACH, NO FURTHER NEEDS AT THIS TIME.
--- NOTE | 2025-04-10 10:56 | NUR ---
RECEIVED CONFIRMATION FROM [facility] THEY [facility] N[facility]SING STAFF AND ETELVINA FROM [facility] UPDATED
--- NOTE | 2025-04-10 11:02 | NUR ---
PATIENT UPDATED. NO QUESTIONS
--- NOTE | 2025-04-10 11:05 | NUR ---
PATIENT IN BED AT THIS TIME. THIS ASTRONOMY PROFESSOR AND KARIME BRENNAN ASSISTED PATIENT WITH BED CARLISLE. THIS ASTRONOMY PROFESSOR ASSISTED PATIENT OFF OF BED CARLISLE AND PROVIDED PATIENT WITH JUAN LUIS CARE. CALL LIGHT WITHIN REACH, NO FURTHER NEEDS.
--- NOTE | 2025-04-10 11:18 | NUR ---
Spoke with Dr. Nicole about the Klor-Con and metoprolol sprinkles on pt's discharge med list and obtained verbal order to stop both meds.
--- NOTE | 2025-04-10 16:52 | NUR ---
BEFORE PATIENT WAS DISCHARGED THE NURSE AND I GAVE PATIENT A BED BATH. JUAN LUIS CARE DONE. WE GOT PATIENT DRESSED. NEW TAPED ATTEND ON AND PAD. PATIENT SAID HE BRUSHED HIS TEETH.
== END 2025-04-10 12:43 | DRG 871 ==
LOC: ED 07:17 → CCU 04-08 13:57 → MS 04-09 22:11
PROVIDERS: Emergency Medicine; ADMIT Student in an Organized Health Care Education/Training Program; ATTEND Student in an Organized Health Care Education/Training Program
DX: A41.9 Sepsis, unspecified organism (principal); J18.9 Pneumonia, unspecified organism; J96.01 Acute respiratory failure with hypoxia; I50.32 Chronic diastolic (congestive) heart failure; J44.0 Chronic obstructive pulmonary disease with (acute) lower respiratory infection; Z68.42 Body mass index [BMI] 45.0-49.9, adult; I11.0 Hypertensive heart disease with heart failure; G47.33 Obstructive sleep apnea (adult) (pediatric); E11.51 Type 2 diabetes mellitus with diabetic peripheral angiopathy without gangrene; E66.01 Morbid (severe) obesity due to excess calories; K21.9 Gastro-esophageal reflux disease without esophagitis; R62.7 Adult failure to thrive; R19.7 Diarrhea, unspecified; I44.0 Atrioventricular block, first degree; R53.81 Other malaise; I87.8 Other specified disorders of veins; Z99.89 Dependence on other enabling machines and devices; Z86.711 Personal history of pulmonary embolism; Z87.81 Personal history of (healed) traumatic fracture; Z79.4 Long term (current) use of insulin; Z86.73 Personal history of transient ischemic attack (TIA), and cerebral infarction without residual deficits; Z87.19 Personal history of other diseases of the digestive system; Z98.890 Other specified postprocedural states; Z79.899 Other long term (current) drug therapy; Z79.891 Long term (current) use of opiate analgesic; Z79.01 Long term (current) use of anticoagulants
CPT/HCPCS: 36415; 71260; 80048; 80053; 82550; 82803; 83735; 83880; 84443; 84484; 85025; 93005; 93010; 94660; 94762; 94799; 97162; 97166; 97530; 97535; A6590; A9270; J1815; J1938; Q9967